=== PATIENT | male | born 1940 | race Caucasian/White ===

== ENCOUNTER → 2017-07-25 08:59 | Outpatient (CLI) | payer MEDICARE, SELFPAY ==
[2017-07-25 10:43] LABS: Absolute Lymphocyte Count 1.62 X10^3/ul (0.83-4.51); Absolute Neutrophil Count 5.5 X10^3/uL (2.0-7.7); Basophil# 0.03 X10^3/uL; Basophil% 0.4 % (0-1); Eosinophils% 1.3 % (0-5); Hematocrit 46.5 % (40-54); Hemoglobin 15.7 g/dl (13.0-16.5); Lymphocyte # 1.62 X10^3/ul (4.0); Mean Corp Hgb Conc 33.8 g/gl (32-36); Mean Corpuscular Hgb 36.3 pg (27.0-32.0); Mean Corpuscular Volume 107.4 fL (80-94); Mean Platelet Vol. 10.1 fl (6.2-12.0); Monocyte# 0.46 X10^3/uL; Neutrophil # 5.49 X10^3/uL (2.7-7.7); Platelet Count 192 K/mm3 (150-450); Red Blood Count 4.33 M/mm3 (4.6-6.2); White Blood Count 7.7 K/mm3 (4.4-11.0)
[2017-07-25 10:46] LABS: POSITIVE COUNT NO; POSITIVE DIFFERENTIAL NO; POSITIVE MORPHOLOGY NO
[2017-07-25 10:51] LABS: ALB/GLOB Ratio 1.1 RATIO (0.9-2.4); AST(SGOT) 26 U/L (15-37); Alanine Aminotransfer ALT/SGPT 33 U/L (16-61); Albumin, Serum 3.9 g/dL (3.2-5.0); Alkaline Phosphatase 63 U/L (45-117); BUN 20 mg/dL (7-18); BUN/Creat Ratio 20.9 RATIO (10-20); Chloride 100 mmol/L (98-107); Creatinine, Serum 0.96 mg/dL (0.70-1.30); EST Glomerular Filtration Rate 81 mL/min (>60); Est Glom Filt Rate - Afr Amer 98 mL/min (>60); Globulin 3.7 g/dL (2.2-4.2); Glucose 162 mg/dL (74-106); Potassium 4.2 mmol/L (3.5-5.1); Protein, Total 7.6 g/dL (6.4-8.2); Sodium Level 139 mmol/L (136-145)
[2017-07-25 10:52] LABS: Anion Gap 10 (5-15)
== END ==
PROVIDERS: Family Provider Internal Medicine; PCP Internal Medicine; Visit Provider Internal Medicine Rheumatology
DX: L40.59 Other psoriatic arthropathy (principal); Z79.899 Other long term (current) drug therapy; M17.0 Bilateral primary osteoarthritis of knee; L40.8 Other psoriasis; M10.00 Idiopathic gout, unspecified site; G47.33 Obstructive sleep apnea (adult) (pediatric); I10 Essential (primary) hypertension; E78.5 Hyperlipidemia, unspecified; F41.9 Anxiety disorder, unspecified; Z85.038 Personal history of other malignant neoplasm of large intestine
CPT/HCPCS: 36415; 80053; 85025

== ENCOUNTER → 2017-11-13 14:05 | Outpatient (CLI) | payer MEDICARE, SELFPAY ==
[2017-11-13 16:15] LABS: Absolute Lymphocyte Count 1.73 X10^3/ul (0.83-4.51); Absolute Neutrophil Count 5.1 X10^3/uL (2.0-7.7); Basophil# 0.03 X10^3/uL; Basophil% 0.4 % (0-1); Eosinophil# 0.14 X10^3/uL; Eosinophils% 1.8 % (0-5); Hematocrit 46.2 % (40-54); Hemoglobin 15.7 g/dl (13.0-16.5); Lymphocyte # 1.73 X10^3/ul (4.0); Lymphocyte % 21.9 % (19-41); Mean Corpuscular Hgb 35.7 pg (27.0-32.0); Mean Platelet Vol. 10.2 fl (6.2-12.0); Monocyte# 0.84 X10^3/uL; Monocyte% 10.6 % (0-10); Neutrophil # 5.11 X10^3/uL (2.7-7.7); Neutrophil % 64.8 % (47-70); Platelet Count 214 K/mm3 (150-450); RBC Distribution Width CV 12.9 % (11.6-14.6); RBC Distribution Width SD 49.3 fl (35.1-43.9); White Blood Count 7.9 K/mm3 (4.4-11.0)
[2017-11-13 16:18] LABS: POSITIVE COUNT NO; POSITIVE DIFFERENTIAL NO; POSITIVE MORPHOLOGY NO
[2017-11-13 16:38] LABS: ALB/GLOB Ratio 0.9 RATIO (0.9-2.4); AST(SGOT) 41 U/L (15-37); Alanine Aminotransfer ALT/SGPT 47 U/L (16-61); Albumin, Serum 3.6 g/dL (3.2-5.0); Alkaline Phosphatase 71 U/L (45-117); Anion Gap 12 (5-15); BUN 22 mg/dL (7-18); BUN/Creat Ratio 25.3 RATIO (10-20); Calcium,Total 9.1 mg/dL (8.5-10.1); Chloride 101 mmol/L (98-107); Creatinine, Serum 0.87 mg/dL (0.70-1.30); EST Glomerular Filtration Rate 90 mL/min (>60); Est Glom Filt Rate - Afr Amer 109 mL/min (>60); Globulin 3.9 g/dL (2.2-4.2); Glucose 173 mg/dL (74-106); Protein, Total 7.5 g/dL (6.4-8.2); Sodium Level 140 mmol/L (136-145)
== END ==
PROVIDERS: Family Provider Internal Medicine; PCP Internal Medicine; Visit Provider Internal Medicine Rheumatology
DX: L40.59 Other psoriatic arthropathy (principal); Z79.899 Other long term (current) drug therapy; M17.0 Bilateral primary osteoarthritis of knee; L40.8 Other psoriasis; M10.00 Idiopathic gout, unspecified site; G47.33 Obstructive sleep apnea (adult) (pediatric); I10 Essential (primary) hypertension; E78.5 Hyperlipidemia, unspecified; F41.9 Anxiety disorder, unspecified; Z85.038 Personal history of other malignant neoplasm of large intestine
CPT/HCPCS: 36415; 80053; 85025

== ENCOUNTER → 2018-01-10 10:22 | Outpatient (CLI) | payer MEDICARE, SELFPAY ==
[2018-01-10 12:26] LABS: Absolute Lymphocyte Count 1.49 X10^3/ul (0.83-4.51); Absolute Neutrophil Count 4.8 X10^3/uL (2.0-7.7); Basophil# 0.03 X10^3/uL; Basophil% 0.4 % (0-1); Eosinophil# 0.22 X10^3/uL; Hematocrit 45.7 % (40-54); Hemoglobin 15.3 g/dl (13.0-16.5); Lymphocyte # 1.49 X10^3/ul (4.0); Lymphocyte % 20.1 % (19-41); Mean Corp Hgb Conc 33.5 g/gl (32-36); Mean Corpuscular Hgb 35.5 pg (27.0-32.0); Mean Platelet Vol. 10.1 fl (6.2-12.0); Monocyte# 0.91 X10^3/uL; Monocyte% 12.2 % (0-10); Neutrophil # 4.76 X10^3/uL (2.7-7.7); Platelet Count 205 K/mm3 (150-450); RBC Distribution Width SD 50.2 fl (35.1-43.9); Red Blood Count 4.31 M/mm3 (4.6-6.2); White Blood Count 7.4 K/mm3 (4.4-11.0)
[2018-01-10 12:32] LABS: POSITIVE DIFFERENTIAL NO
[2018-01-10 12:33] LABS: POSITIVE COUNT NO; POSITIVE MORPHOLOGY NO
[2018-01-10 12:48] LABS: ALB/GLOB Ratio 0.9 RATIO (0.9-2.4); AST(SGOT) 54 U/L (15-37); Alanine Aminotransfer ALT/SGPT 45 U/L (16-61); Albumin, Serum 3.5 g/dL (3.2-5.0); Alkaline Phosphatase 60 U/L (45-117); Anion Gap 12 (5-15); BUN 16 mg/dL (7-18); Calcium,Total 8.9 mg/dL (8.5-10.1); Chloride 101 mmol/L (98-107); Creatinine, Serum 0.84 mg/dL (0.70-1.30); EST Glomerular Filtration Rate 93 mL/min (>60); Est Glom Filt Rate - Afr Amer 113 mL/min (>60); Glucose 151 mg/dL (74-106); Protein, Total 7.5 g/dL (6.4-8.2); Sodium Level 139 mmol/L (136-145)
[2018-01-12 11:28] LABS: Arsenic 7245 4 ug/L (2-23)
== END ==
PROVIDERS: Family Provider Internal Medicine; PCP Internal Medicine; Visit Provider Psychiatry & Neurology Neurology
DX: L40.59 Other psoriatic arthropathy (principal); Z79.899 Other long term (current) drug therapy; M17.0 Bilateral primary osteoarthritis of knee; L40.8 Other psoriasis; M10.00 Idiopathic gout, unspecified site; G47.33 Obstructive sleep apnea (adult) (pediatric); I10 Essential (primary) hypertension; E78.5 Hyperlipidemia, unspecified; F41.9 Anxiety disorder, unspecified; Z85.038 Personal history of other malignant neoplasm of large intestine; G62.9 Polyneuropathy, unspecified
CPT/HCPCS: 36415; 80053; 82175; 83655; 83825; 85025

== ENCOUNTER → 2018-01-17 08:49 | Outpatient (CLI) | payer MEDICARE, SELFPAY ==
--- NOTE | 2018-01-17 08:52 | US_ITS ---
STUDY: ABDOMINAL ULTRASOUND - RIGHT UPPER QUADRANT REASON FOR VISIT: Male, 77 years old. Elevated liver enzymes. TECHNIQUE: Ultrasound evaluation of the right upper quadrant was performed with real-time and static wiggins-scale imaging. TECHNICAL QUALITY: Adequate. COMPARISON: None. FINDINGS: Liver: The liver is enlarged and measures 23.3 cm. There is increased echogenicity consistent with fatty infiltration. The bile ducts are within normal limits. There is hepatic color flow. The direction of portal flow is hepatopetal. There is no demonstrated mass lesion. Gallbladder: Normal distended gallbladder. The gallbladder wall measures 2.6 mm. There is a negative sonographic Freitas's sign. There is no pericholecystic fluid. There are no gallstones. Common Bile Duct (C.B.D.): The common bile duct measures 5.3 mm. Pancreas: There is nonvisualization of the pancreas due to overlying bowel gas and patient's body habitus.. Right Kidney: Normal size of the right kidney. The right kidney measures 12.0 cm x 5.3 cm x 6.6 cm. Normal renal cortex. The right cortex measures 1.8 cm. There is no demonstrated renal mass or cyst. There is no right hydronephrosis. US/Liver IMPRESSION: Hepatomegaly. Fatty infiltration of the liver. Electronically Signed: Ruddy Clement MD at 15:56 EDT Tel [phone], Service support ,
== END ==
PROVIDERS: Family Provider Internal Medicine; PCP Internal Medicine; Visit Provider Internal Medicine Rheumatology
DX: L40.59 Other psoriatic arthropathy (principal); Z79.899 Other long term (current) drug therapy; M17.0 Bilateral primary osteoarthritis of knee; M10.00 Idiopathic gout, unspecified site; G47.33 Obstructive sleep apnea (adult) (pediatric); I10 Essential (primary) hypertension; E78.5 Hyperlipidemia, unspecified; F41.9 Anxiety disorder, unspecified; Z85.038 Personal history of other malignant neoplasm of large intestine
CPT/HCPCS: 76705

== ENCOUNTER → 2018-03-20 11:35 | Outpatient (CLI) | payer MEDICARE, SELFPAY ==
[2018-03-20 14:00] LABS: Absolute Lymphocyte Count 1.61 X10^3/ul (0.83-4.51); Absolute Neutrophil Count 6.1 X10^3/uL (2.0-7.7); Basophil# 0.03 X10^3/uL; Basophil% 0.3 % (0-1); Eosinophil# 0.15 X10^3/uL; Eosinophils% 1.7 % (0-5); Hematocrit 44.5 % (40-54); Hemoglobin 15.7 g/dl (13.0-16.5); Lymphocyte # 1.61 X10^3/ul (4.0); Lymphocyte % 17.7 % (19-41); Mean Corp Hgb Conc 35.3 g/gl (32-36); Mean Corpuscular Hgb 36.8 pg (27.0-32.0); Mean Corpuscular Volume 104.2 fL (80-94); Mean Platelet Vol. 10.4 fl (6.2-12.0); Monocyte# 1.16 X10^3/uL; Monocyte% 12.8 % (0-10); Neutrophil # 6.09 X10^3/uL (2.7-7.7); Neutrophil % 67.1 % (47-70); Platelet Count 212 K/mm3 (150-450); RBC Distribution Width CV 13.3 % (11.6-14.6); RBC Distribution Width SD 51.4 fl (35.1-43.9); Red Blood Count 4.27 M/mm3 (4.6-6.2); White Blood Count 9.1 K/mm3 (4.4-11.0)
[2018-03-20 14:08] LABS: POSITIVE COUNT NO; POSITIVE DIFFERENTIAL NO; POSITIVE MORPHOLOGY NO
[2018-03-20 14:31] LABS: ALB/GLOB Ratio 0.9 RATIO (0.9-2.4); AST(SGOT) 37 U/L (15-37); Alanine Aminotransfer ALT/SGPT 39 U/L (16-61); Albumin, Serum 3.7 g/dL (3.2-5.0); Alkaline Phosphatase 69 U/L (45-117); Anion Gap 11 (5-15); BUN 20 mg/dL (7-18); BUN/Creat Ratio 24.6 RATIO (10-20); Calcium,Total 9.4 mg/dL (8.5-10.1); Chloride 100 mmol/L (98-107); Creatinine, Serum 0.81 mg/dL (0.70-1.30); EST Glomerular Filtration Rate 97 mL/min (>60); Est Glom Filt Rate - Afr Amer 118 mL/min (>60); Globulin 4.3 g/dL (2.2-4.2); Glucose 91 mg/dL (74-106); Potassium 4.1 mmol/L (3.5-5.1); Sodium Level 140 mmol/L (136-145)
== END ==
PROVIDERS: Family Provider Internal Medicine; PCP Internal Medicine; Referring Provider Internal Medicine Rheumatology; Visit Provider Internal Medicine Rheumatology
DX: L40.59 Other psoriatic arthropathy (principal); Z79.899 Other long term (current) drug therapy; M17.0 Bilateral primary osteoarthritis of knee; L40.8 Other psoriasis; M10.00 Idiopathic gout, unspecified site; G47.33 Obstructive sleep apnea (adult) (pediatric); I10 Essential (primary) hypertension; E78.5 Hyperlipidemia, unspecified; F41.9 Anxiety disorder, unspecified; Z85.038 Personal history of other malignant neoplasm of large intestine
CPT/HCPCS: 36415; 80053; 85025

== ENCOUNTER 2018-06-06 14:52 | Emergency (ER) | payer MEDICARE, SELFPAY ==
[2018-06-06 14:53] VITALS: BP 156/72; PULSE 83; RESP 16; TEMP 36.4; O2SAT 95; BMI 52.1
--- NOTE | 2018-06-06 15:10 | ED.VISSUMM ---
- ER Visit Summary Date of Service: 06/06/18 Chief Complaint: Constipation History of Present Illness: The patient is a 78 M who presents with constipation. Patient states he normally has 1-2 bowel movements per day. Patient states that for a couple days since he had a bowel movement. Patient states he feels pressure in his rectum. Patient denies any melena or hematochezia. Patient denies any nausea or vomiting. Patient denies any abdominal pain. Patient states he almost passed out at home. Patient states he was sitting in his chair when this happened. Patient denies any chest pain or shortness of breath. Patient denies any visual changes or sore throat. Patient denies any recent fevers or chills. Physical Examination: Vital signs are stable. Patient is afebrile. Patient is in no acute distress. Oral mucosa is pink and moist. Neck is supple. Trachea is midline. There is no JVD noted. Heart was regular rate and rhythm. Lungs are clear and equal bilateral. Abdomen is soft. Bowel sounds are normal. There is no tenderness. There is no guarding noted. Still exam showed good sphincter tone. There is brown stool that is firm. There are no masses palpated. Skin is warm dry. Cranial nerves II through XII are intact. There are no focal motor or sensory deficits noted. The remaining physical exam is within normal limits. Test Results: CBC and metabolic profile were essentially within normal limits. CT scan of the abdomen and pelvis shows some mild sigmoid colitis. Stool was guaiac positive. This is likely due to the colitis. Emergency Department Course and Treatment: Patient had a large bowel movement here and felt better after that. Patient was given a prescription for Augmentin. Patient was instructed to follow-up with his primary care physician in 5-7 days. Patient understood and was agreeable with the plan. All questions were answered. Disposition: Discharge home Impression: 1. Sigmoid colitis 2. Constipation This note was generated with [employer] dictation software. It may contain incorrect words, spelling, and punctuation that were not noted in review of the chart prior to signing ED Disposition - Plan for ED Patient: Disposition: Home or Assisted Living Chief Complaint: Constipation Diagnosis: Colitis Instructions: ED Constipation Prescriptions: Amox/Clavulanate Tablet [Augmentin Tablet] 875 mg PO Q12H #20 tablet Referrals: Macie Fenton MD [Primary Care Provider] -
--- NOTE | 2018-06-06 15:11 | CT_ITS ---
STUDY: CT ABDOMEN AND PELVIS WITHOUT CONTRAST REASON FOR EXAM: Male, 78 years old. Constipation. History of colon cancer with resection. RADIATION DOSAGE (If Supplied By Facility): CTDIvol = ( 24.18 ) mGy, DLP = ( 1165.76 ) mGycm TECHNIQUE: Transaxial images were obtained from the dome of the diaphragm to the symphysis pubis without oral contrast, and without intravenous contrast. Sagittal and coronal images were reconstructed. Individualized dose optimization techniques were used for this CT. COMPARISON: CT abdomen and pelvis 06/30/2016. FINDINGS: Body wall soft tissues: Gynecomastia, right greater than left. Stable appearance compared to prior imaging. Fat filled inguinal hernias, also stable. Osseous structures: Multilevel spondylosis with evidence of foraminal narrowing at L5-S1 in particular. Osteopenia. No acute osseous process. Inferior chest: Lung bases clear. Borderline cardiomegaly. No pericardial effusion. Prominent coronary calcifications. Mitral annulus and aortic valve annulus calcifications. Sliding hiatal hernia containing omental fat, without herniation of the gastroesophageal junction or gastric fundus. Normal distal esophagus. Stable compared to prior imaging. Hepatobiliary: Hepatomegaly, hepatic steatosis. Craniocaudal right liver 21 cm. No suspicious focal lesion. Normal gallbladder and biliary tree. Pancreas: There is motion artifact across the pancreatic tail slightly securing detail. There is moderate pancreatic atrophy without suspicious focal lesion or ductal ectasia. No convincing evidence of acute pancreatitis. Spleen: Normal. Adrenal glands: Normal. Urogenital: Unremarkable kidneys, collecting systems, ureters. Prostatomegaly. There is mild thickening of the urinary bladder wall. The urinary bladder contains only a small amount of urine. There is low density fatty infiltration the wall consistent with sequela from prior cystitis. There is no evidence of acute urinary bladder inflammation. Symmetric and unremarkable seminal vesicles. Pelvic floor and sidewalls and retroperitoneum: No mass or adenopathy. Vasculature: No acute process. Stomach: No acute process. Small bowel and mesentery: No acute process. Large bowel: Appendix is not visualized. There is no visible anastomotic segment of the large bowel, no radiodense sutures or izzy. It is possible that there is an ileocolic anastomosis in the right mid quadrant of the abdomen. Correlate surgical history. There is mild circumferential thickening of the wall of the mid to distal sigmoid colon, very slight induration in the adjacent fat, hyperemia in the mesentery. Not entirely convincing but potentially representing mild acute colitis. There is no significant stool of large bowel, no constipation. Free fluid or free air: None. CT/Abdomen/Pelvis without Cont IMPRESSION: Suspected mild acute colitis involving the sigmoid colon. No constipation. Electronically Signed: Giovanni Agudelo MD at 15:59 EST Tel , Service support ,
[2018-06-06 15:48] LABS: Absolute Lymphocyte Count 1.87 X10^3/ul (0.83-4.51); Basophil# 0.04 X10^3/uL; Basophil% 0.4 % (0-1); Eosinophil# 0.14 X10^3/uL; Eosinophils% 1.5 % (0-5); Hematocrit 43.6 % (40-54); Hemoglobin 15.4 g/dl (13.0-16.5); Lymphocyte # 1.87 X10^3/ul (4.0); Lymphocyte % 20.7 % (19-41); Mean Corp Hgb Conc 35.3 g/gl (32-36); Mean Corpuscular Hgb 37.6 pg (27.0-32.0); Mean Corpuscular Volume 106.3 fL (80-94); Mean Platelet Vol. 10.2 fl (6.2-12.0); Monocyte# 0.95 X10^3/uL; Monocyte% 10.5 % (0-10); Neutrophil # 6.02 X10^3/uL (2.7-7.7); Neutrophil % 66.6 % (47-70); Platelet Count 207 K/mm3 (150-450); RBC Distribution Width CV 13.1 % (11.6-14.6); RBC Distribution Width SD 51.4 fl (35.1-43.9); White Blood Count 9.1 K/mm3 (4.4-11.0)
[2018-06-06 15:52] LABS: POSITIVE COUNT NO; POSITIVE DIFFERENTIAL NO; POSITIVE MORPHOLOGY NO
[2018-06-06 16:06] LABS: ALB/GLOB Ratio 0.9 RATIO (0.9-2.4); AST(SGOT) 28 U/L (15-37); Alanine Aminotransfer ALT/SGPT 33 U/L (16-61); Albumin, Serum 3.9 g/dL (3.2-5.0); Alkaline Phosphatase 78 U/L (45-117); Anion Gap 13 (5-15); BUN 22 mg/dL (7-18); BUN/Creat Ratio 21.6 RATIO (10-20); Calcium,Total 9.4 mg/dL (8.5-10.1); Chloride 99 mmol/L (98-107); Creatinine, Serum 1.02 mg/dL (0.70-1.30); EST Glomerular Filtration Rate 75 mL/min (>60); Est Glom Filt Rate - Afr Amer 91 mL/min (>60); Estimated Creatinine Clearance 43.44 ml/min; Globulin 4.2 g/dL (2.2-4.2); Glucose 176 mg/dL (74-106); Protein, Total 8.1 g/dL (6.4-8.2); Sodium Level 139 mmol/L (136-145)
[2018-06-06 16:32] VITALS: BP 140/58; PULSE 61; RESP 20; O2SAT 95
== END 2018-06-06 16:33 | disposition home or self-care (01) ==
PROVIDERS: Emergency Provider Emergency Medicine; Family Provider Internal Medicine; PCP Internal Medicine
DX: K52.9 Noninfective gastroenteritis and colitis, unspecified (principal); K59.00 Constipation, unspecified; Z85.038 Personal history of other malignant neoplasm of large intestine
CPT/HCPCS: 74176; 80053; 82274; 85025; 99285

== ENCOUNTER 2018-07-16 11:20 | Emergency (ER) | payer MEDICARE, SELFPAY ==
[2018-07-16 11:22] VITALS: BP 132/59; PULSE 67; RESP 16; TEMP 36.5; O2SAT 95; BMI 40.3
--- NOTE | 2018-07-16 11:36 | RAD_ITS ---
STUDY: X-RAY - ABDOMEN/PELVIS REASON FOR EXAM: Male, 78 years old. Constipation TECHNIQUE: 3 AP supine views of the abdomen and pelvis. COMPARISON: 06/06/2018 FINDINGS: Normal visualized lung bases. There is a moderate amount of colonic fecal material. There is no demonstrated free abdominal air. The visualized liver, spleen and kidneys are grossly normal in size and morphology. There are calcified phleboliths in the pelvis. There are diffuse degenerative changes of the visualized lumbar spine. RAD/Abdomen Single View IMPRESSION: Moderate fecal retention throughout the colon Electronically Signed: Gregory Fletcher DO at 12:45 EDT Tel , Service support ,
--- NOTE | 2018-07-16 11:41 | ED.DCSUM_ITS ---
- ER Visit Summary Date of Service: 07/16/18 Chief Complaint: Constipation History of Present Illness: The patient is a 78 M who presents the emergency department far 3 days of constipation. called the embolus to have him transported to the emergency room for this. She also states that while she is h ere she would like to have a rash, for which she sees dermatology, evaluated. She is also wondering if she should stop having him wear sweat pants with elastic legs because she is concerned is causing leg swelling. She states she has been putting a cream on it and is getting better. Patient takes MiraLAX every day for his bowels but did not take it yesterday. She gave him a Dulcolax. Physical Examination: Afebrile vital signs are stable Gen: Well-nourished well-developed obese Head: Normocephalic atraumatic Eyes: Perrl EOMI ENT: clear no rhinorrhea moist mucous membranes hard of hearing Neck: Supple no lymphadenopathy no JVD nontender CVS: Regular rate rhythm no murmurs normal S1-S2 Respiratory: No distress clear to auscultation bilaterally chest nontender Abdomen: Soft nontender nondistended normal bowel sounds no masses Back: Nontender Extremity: Nontender no edema Skin: Normal color no rash Neuro: alert orientated ?3 CN II-XII intact normal strength sensation reflexes gait cerebellar Psych: Normal affect normal mood Test Results: Abdominal x-rays showed increased stool throughout the colon. Emergency Department Course and Treatment: Patient was given a soapsuds enema and had very large bowel movement. Patient will be discharged home to resume his normal bowel regimen of MiraLAX and stool softener Impression: 1. Constipation This note was generated with [employer] dictation software. It may contain incorrect words, spelling, and punctuation that were not noted in review of the chart prior to signing ED Disposition - Plan for ED Patient: Disposition: Home or Assisted Living Instructions: ED Constipation Referrals: Macie Fenton MD [Primary Care Provider] - 1 Week
[2018-07-16 13:39] VITALS: BP 158/77; PULSE 59; RESP 14; O2SAT 98
[2018-07-16 14:14] VITALS: BP 145/69
[2018-07-16 15:06] VITALS: BP 153/80; PULSE 54; RESP 16; O2SAT 96
== END 2018-07-16 15:06 | disposition home or self-care (01) ==
PROVIDERS: Emergency Provider Emergency Medicine; Family Provider Internal Medicine; PCP Internal Medicine
DX: K59.00 Constipation, unspecified (principal); E66.9 Obesity, unspecified; I10 Essential (primary) hypertension; E78.00 Pure hypercholesterolemia, unspecified; G47.33 Obstructive sleep apnea (adult) (pediatric); G62.9 Polyneuropathy, unspecified; Z79.2 Long term (current) use of antibiotics; Z79.82 Long term (current) use of aspirin; Z79.899 Other long term (current) drug therapy
CPT/HCPCS: 74018; 99285; J7030; A4216

== ENCOUNTER 2018-07-24 15:00 | Emergency (ER) | payer MEDICARE, SELFPAY ==
[2018-07-24 15:02] VITALS: BP 181/81; PULSE 62; RESP 16; TEMP 36.6; O2SAT 96; BMI 43.2
--- NOTE | 2018-07-24 15:30 | CT_ITS ---
STUDY: CT ABDOMEN AND PELVIS WITHOUT CONTRAST REASON FOR EXAM: Male, 78 years old. Constipation, weakness, back pain after fall. RADIATION DOSAGE (If Supplied By Facility): CTDIvol = ( 34.24 ) mGy, DLP = ( 2286.81 ) mGycm TECHNIQUE: Transaxial images were obtained from the dome of the diaphragm to the symphysis pubis without oral contrast, and without intravenous contrast. Sagittal and coronal images were reconstructed. Individualized dose optimization techniques were used for this CT. COMPARISON: CT abdomen and pelvis 06/06/2018, 06/30/2016. FINDINGS: Body wall soft tissues: Small fat filled bilateral inguinal hernias, typically of no clinical consequence. Osseous structures: Mild multilevel lower thoracic and upper lumbar spondylosis. Moderate disc degeneration L5-S1 with mild foraminal narrowing. Mild bilateral hip joint degeneration. Inferior chest: Clear lung bases, normal distal esophagus. Right coronary calcifications. No significant cardiomegaly. Hepatobiliary: Hepatic steatosis with hepatomegaly craniocaudal right liver 21.7 cm. Pancreas: Mild atrophy. Spleen: Normal. Adrenal glands: Normal. Urogenital: Normal kidneys, collecting systems, ureters, urinary bladder. Mild prostatomegaly. Symmetric and unremarkable seminal vesicles. Pelvic floor and sidewalls and retroperitoneum: No mass or adenopathy. Vasculature: Mild atherosclerosis. Stomach: No acute process. Small bowel and mesentery: No acute process. Large bowel: No visible appendix. Partially fluid-filled large bowel suggesting the presence of diarrhea. Free fluid or free air: None. CT/Abdomen/Pelvis without Cont IMPRESSION: No definitive acute abdominopelvic process is evident. There is no evidence of constipation. Minimal formed stool in the rectum and sigmoid. Liquid stool in the remainder of the large bowel. Correlate for diarrhea. There is no specific evidence of acute enterocolitis. Hepatic steatosis with hepatomegaly. Electronically Signed: Giovanni Agudelo MD at 17:45 EDT Tel , Service support ,
--- NOTE | 2018-07-24 15:31 | ED.VISSUMM ---
- ER Visit Summary Date of Service: 07/24/18 Chief Complaint: Constipation, weakness History of Present Illness: The patient is a 78 M patient presents with due to recurrent problems with constipation. Patient reports having 3 small bowel movements this morning but still feels bloated. He was seen here in the ER both in May and in July for the same. Patient has had increased weakness. reports concern about her ability to care for the patient at home. He did have a mechanical fall a few days ago with some forehead abrasions and some worsened chronic back pain since that time. Physical Examination: Blood pressure in triage was 181/81, but 157/72 the time of my exam. Other vitals unremarkable. Head neck examination reveals abrasions to the right forehead. Heart is regular rate and rhythm. Lung sounds are clear. Abdomen is soft with no focal tenderness. Active bowel sounds are noted throughout. Abdomen is distended. Test Results: CBC is unremarkable. Chemistry studies unremarkable. CT abdomen pelvis shows no acute process. There is minimal formed stool in the rectum and the sigmoid. Emergency Department Course and Treatment: Social work was consulted. After spending significant amount of time with her, drug abuse social worker and family have agreed on plan for home health. Patient at this time is refusing transitional care. Test results were discussed at length with patient and at bedside. Treatment Plan: [] Disposition: Discharge Impression: Generalized weakness This note was generated with [employer] dictation software. It may contain incorrect words, spelling, and punctuation that were not noted in review of the chart prior to signing ED Disposition - Plan for ED Patient: Disposition: Home or Assisted Living Referrals: Macie Fenton MD [Primary Care Provider] -
[2018-07-24 16:34] LABS: Absolute Lymphocyte Count 0.97 X10^3/ul (0.83-4.51); Absolute Neutrophil Count 8.5 X10^3/uL (2.0-7.7); Basophil# 0.02 X10^3/uL; Basophil% 0.2 % (0-1); Eosinophil# 0.08 X10^3/uL; Eosinophils% 0.8 % (0-5); Hematocrit 46.6 % (40-54); Hemoglobin 14.9 g/dl (13.0-16.5); Lymphocyte # 0.97 X10^3/ul (4.0); Lymphocyte % 9.4 % (19-41); Mean Corpuscular Hgb 34.4 pg (27.0-32.0); Mean Corpuscular Volume 107.6 fL (80-94); Mean Platelet Vol. 10.5 fl (6.2-12.0); Monocyte# 0.69 X10^3/uL; Monocyte% 6.7 % (0-10); Neutrophil # 8.52 X10^3/uL (2.7-7.7); Neutrophil % 82.6 % (47-70); POSITIVE COUNT NO; POSITIVE DIFFERENTIAL NO; POSITIVE MORPHOLOGY NO; Platelet Count 202 K/mm3 (150-450); RBC Distribution Width CV 13.4 % (11.6-14.6); RBC Distribution Width SD 51.7 fl (35.1-43.9); Red Blood Count 4.33 M/mm3 (4.6-6.2); White Blood Count 10.3 K/mm3 (4.4-11.0)
[2018-07-24 16:56] LABS: Anion Gap 1 (5-15); BUN 20 mg/dL (7-18); Calcium,Total 9.4 mg/dL (8.5-10.1); Chloride 101 mmol/L (98-107); Creatinine, Serum 0.83 mg/dL (0.70-1.30); EST Glomerular Filtration Rate 94 mL/min (>60); Est Glom Filt Rate - Afr Amer 114 mL/min (>60); Estimated Creatinine Clearance 65.12 ml/min; Glucose 110 mg/dL (74-106); Potassium 4.8 mmol/L (3.5-5.1); Sodium Level 134 mmol/L (136-145)
--- NOTE | 2018-07-24 17:10 | CM.ED ---
Social Work Note Referral from Dr. Ashley for resources. Pt has had 3 visits to ED since May of 2018 and indicates she needs more help. Introduced self and role at [facility]. Pt allows to respond to most questions. reports that they live in a one-story home with 3 [address] and pt uses a walker to ambulate. Reports weakness for the pt and that he had a fall yesterday. Claims that the pt bathes himself, dresses himself and his able to ambulate the length of the house. Inquire about [facility] services and states that she does not think this will be enough as she cannot help the pt out of the chair or up from the shower, etc. Pt is not agreeable to placement. Discuss the option of short term placement for rehabilitation and strengthening prior to returning home. Pt becomes upset and states that he is going home. talks about getting additional DME in the home to help such as a lift chair. Discuss with pt and for approximately 40 minutes. Neither are able to agree. Explain to pt's that at this time the pt is alert and oriented and able to make his own decisions. Exit room and inform them that they need to discuss and agree on their expectations and this development writer will check back in. Updated physician. SW to continue to follow and assist with discharge planning. SUSY Bernabe, COLEMAN
--- NOTE | 2018-07-24 17:32 | CM.ED ---
Social Work Note Call from SHASHANK Ireland, stating that pt's came out to nurses station and was ready to talk to this bond underwriter. Reenter room and pt and spouse are agreeable to HHC services. Updated physician who is in agreement. HHC referral made to [facility] per pt's preference and anticipate f/u with pt and spouse tomorrow, 07/25. No further needs identified at this time. PLAN: Return home with support of spouse and HHC services. Poppy Olson, NOZZLE AND SLEEVE WORKER, [employer]
--- NOTE | 2018-07-24 18:10 | ED.DEP ---
ED Disposition - Plan for ED Patient: Disposition: Home or Assisted Living Instructions: ED Weakness [facility] Referrals: Macie Fenton MD [Primary Care Provider] - 1 Week Additional Instructions: Social work will help arrange home health as discussed.
--- NOTE | 2018-07-27 11:52 | CM.ED ---
SOCIAL WORK NOTE RECEIVED PHONE CALL FROM PT'S REPORTING HAS NOT HEARD FROM [facility]RE[facility] AND GARLAND MAKER FROM [facility]. REPORTS PT WAS IN ED ON MONDAY AND REFERRAL WAS MADE TO [facility] PER ARBORIST CLIMBER, MAURICIO. CALL TO ALLI WITH [facility]. UPDATED ON REFERRAL. ALLI TO FOLLOW UP WITH PT AND . GAGAN JAIN, HOME CARE MANAGER RN, DIRECTOR [employer]
== END 2018-07-24 18:29 | disposition home or self-care (01) ==
PROVIDERS: Emergency Provider Emergency Medicine; Family Provider Internal Medicine; PCP Internal Medicine
DX: R53.1 Weakness (principal); G89.29 Other chronic pain; M54.9 Dorsalgia, unspecified; E66.9 Obesity, unspecified; G47.33 Obstructive sleep apnea (adult) (pediatric); I10 Essential (primary) hypertension; E78.00 Pure hypercholesterolemia, unspecified; F03.90 Unspecified dementia, unspecified severity, without behavioral disturbance, psychotic disturbance, mood disturbance, and anxiety; Z85.038 Personal history of other malignant neoplasm of large intestine; N40.0 Benign prostatic hyperplasia without lower urinary tract symptoms
CPT/HCPCS: 74176; 80048; 85025; 99285; A4216

== ENCOUNTER → 2018-09-12 | Outpatient (CLI) | payer MEDICARE, SELFPAY ==
[2018-09-12 12:37] LABS: Absolute Lymphocyte Count 1.44 X10^3/ul (0.83-4.51); Absolute Neutrophil Count 6.4 X10^3/uL (2.0-7.7); Basophil# 0.03 X10^3/uL; Basophil% 0.3 % (0-1); Eosinophil# 0.11 X10^3/uL; Eosinophils% 1.3 % (0-5); Hematocrit 45.1 % (40-54); Hemoglobin 14.8 g/dl (13.0-16.5); Lymphocyte # 1.44 X10^3/ul (4.0); Lymphocyte % 16.7 % (19-41); Mean Corp Hgb Conc 32.8 g/gl (32-36); Mean Corpuscular Hgb 35.7 pg (27.0-32.0); Mean Corpuscular Volume 108.7 fL (80-94); Mean Platelet Vol. 10.6 fl (6.2-12.0); Monocyte# 0.67 X10^3/uL; Monocyte% 7.8 % (0-10); Neutrophil # 6.35 X10^3/uL (2.7-7.7); Neutrophil % 73.7 % (47-70); Platelet Count 218 K/mm3 (150-450); RBC Distribution Width CV 13.7 % (11.6-14.6); RBC Distribution Width SD 54.5 fl (35.1-43.9); Red Blood Count 4.15 M/mm3 (4.6-6.2); White Blood Count 8.6 K/mm3 (4.4-11.0)
[2018-09-12 12:47] LABS: POSITIVE COUNT NO; POSITIVE DIFFERENTIAL NO; POSITIVE MORPHOLOGY NO
[2018-09-12 13:03] LABS: AST(SGOT) 29 U/L (15-37); Alanine Aminotransfer ALT/SGPT 36 U/L (16-61); Albumin, Serum 3.7 g/dL (3.2-5.0); Alkaline Phosphatase 74 U/L (45-117); Anion Gap 3 (5-15); BUN 22 mg/dL (7-18); BUN/Creat Ratio 26.5 RATIO (10-20); Calcium,Total 9.1 mg/dL (8.5-10.1); Chloride 102 mmol/L (98-107); Creatinine, Serum 0.83 mg/dL (0.70-1.30); EST Glomerular Filtration Rate 95 mL/min (>60); Est Glom Filt Rate - Afr Amer 115 mL/min (>60); Globulin 3.6 g/dL (2.2-4.2); Glucose 129 mg/dL (74-106); Potassium 4.1 mmol/L (3.5-5.1); Protein, Total 7.3 g/dL (6.4-8.2); Sodium Level 136 mmol/L (136-145)
[2018-09-12 15:29] LABS: Hemoglobin A1c 6.1 % (4.2-6.3)
== END | disposition home or self-care (01) ==
LOC: MTLAB 09:36
PROVIDERS: Family Provider Internal Medicine; PCP Internal Medicine; Referring Provider Internal Medicine Rheumatology; Visit Provider Internal Medicine Rheumatology
DX: L40.59 Other psoriatic arthropathy (principal); Z79.899 Other long term (current) drug therapy; M17.0 Bilateral primary osteoarthritis of knee; L40.8 Other psoriasis; M10.00 Idiopathic gout, unspecified site; R73.01 Impaired fasting glucose
CPT/HCPCS: 36415; 80053; 83036; 85025

== ENCOUNTER → 2019-03-11 12:49 | Outpatient (CLI) | payer MEDICARE, SELFPAY ==
[2019-03-11 14:15] LABS: Absolute Lymphocyte Count 2.24 X10^3/uL (0.83-4.51); Basophil# 0.05 X10^3/uL; Basophil% 0.6 % (0-1); Eosinophil# 0.19 X10^3/uL; Eosinophils% 2.3 % (0-5); Hematocrit 45.9 % (40-54); Hemoglobin 15.4 g/dL (13.0-16.5); Lymphocyte # 2.24 X10^3/ul (4.0); Lymphocyte % 26.8 % (19-41); Mean Corp Hgb Conc 33.6 g/dL (32-36); Mean Corpuscular Hgb 36.1 pg (27.0-32.0); Mean Corpuscular Volume 107.5 fL (80-94); Monocyte# 0.78 X10^3/uL; Monocyte% 9.3 % (0-10); NRBC Flagged by Analyzer 0 % (0-5); Neutrophil # 5.04 X10^3/uL (2.7-7.7); Neutrophil % 60.4 % (47-70); Platelet Count 195 K/mm3 (150-450); RBC Distribution Width CV 12.8 % (11.6-14.6); RBC Distribution Width SD 51.1 fl (35.1-43.9); Red Blood Count 4.27 M/mm3 (4.6-6.2); White Blood Count 8.4 K/mm3 (4.4-11.0)
[2019-03-11 15:13] LABS: AST(SGOT) 25 U/L (15-37); Alanine Aminotransfer ALT/SGPT 36 U/L (16-61); Alkaline Phosphatase 67 U/L (45-117); Anion Gap 11 (5-15); BUN 41 mg/dL (7-18); BUN/Creat Ratio 32.8 RATIO (10-20); Calcium,Total 9.4 mg/dL (8.5-10.1); Chloride 98 mmol/L (98-107); Creatinine, Serum 1.25 mg/dL (0.70-1.30); EST Glomerular Filtration Rate 59 mL/min (>60); Est Glom Filt Rate - Afr Amer 72 mL/min (>60); Glucose 89 mg/dL (74-106); Potassium 4.2 mmol/L (3.5-5.1); Sodium Level 138 mmol/L (136-145)
== END ==
LOC: LAB.FUTURE 12:50 → MTLAB 12:59
PROVIDERS: Family Provider Internal Medicine; PCP Internal Medicine; Referring Provider Internal Medicine Rheumatology; Visit Provider Internal Medicine Rheumatology
DX: L40.59 Other psoriatic arthropathy (principal); Z79.899 Other long term (current) drug therapy; M17.0 Bilateral primary osteoarthritis of knee; L40.8 Other psoriasis; M10.00 Idiopathic gout, unspecified site; K76.0 Fatty (change of) liver, not elsewhere classified; G47.33 Obstructive sleep apnea (adult) (pediatric); I10 Essential (primary) hypertension; E78.5 Hyperlipidemia, unspecified; F41.9 Anxiety disorder, unspecified; Z85.038 Personal history of other malignant neoplasm of large intestine
CPT/HCPCS: 36415; 80053; 85025

== ENCOUNTER → 2019-05-02 21:19 | Outpatient (CLI) | payer MEDICARE, SELFPAY | PROVIDERS: Family Provider Internal Medicine; PCP Internal Medicine; Referring Provider Psychiatry & Neurology Neurology; Visit Provider Psychiatry & Neurology Neurology | DX: G47.33 Obstructive sleep apnea (adult) (pediatric) (principal) | CPT/HCPCS: 95811 ==

== ENCOUNTER → 2019-09-02 10:25 | Outpatient (CLI) | payer MEDICARE, SELFPAY ==
[2019-09-02 12:10] LABS: Absolute Lymphocyte Count 1.83 X10^3/uL (0.83-4.51); Absolute Neutrophil Count 5.4 X10^3/uL (2.0-7.7); Basophil# 0.06 X10^3/uL; Basophil% 0.7 % (0-1); Eosinophil# 0.23 X10^3/uL; Eosinophils% 2.7 % (0-5); Hemoglobin 14.6 g/dL (13.0-16.5); Lymphocyte # 1.83 X10^3/ul (4.0); Lymphocyte % 21.9 % (19-41); Mean Corp Hgb Conc 32.4 g/dL (32-36); Mean Corpuscular Hgb 34.7 pg (27.0-32.0); Mean Corpuscular Volume 106.9 fL (80-94); Mean Platelet Vol. 10.3 fl (6.2-12.0); Monocyte# 0.86 X10^3/uL; Monocyte% 10.3 % (0-10); NRBC Flagged by Analyzer 0 % (0-5); Neutrophil # 5.35 X10^3/uL (2.7-7.7); Neutrophil % 63.9 % (47-70); Platelet Count 193 K/mm3 (150-450); RBC Distribution Width CV 13.1 % (11.6-14.6); RBC Distribution Width SD 51.8 fl (35.1-43.9); Red Blood Count 4.21 M/mm3 (4.6-6.2); White Blood Count 8.4 K/mm3 (4.4-11.0)
[2019-09-02 12:19] LABS: AST(SGOT) 25 U/L (15-37); Alanine Aminotransfer ALT/SGPT 34 U/L (16-61); Albumin, Serum 3.7 g/dL (3.2-5.0); Alkaline Phosphatase 68 U/L (45-117); Anion Gap 5 (5-15); BUN 25 mg/dL (7-18); BUN/Creat Ratio 24.5 RATIO (10-20); Calcium,Total 9.6 mg/dL (8.5-10.1); Chloride 104 mmol/L (98-107); Creatinine, Serum 1.02 mg/dL (0.70-1.30); EST Glomerular Filtration Rate 75 mL/min (>60); Est Glom Filt Rate - Afr Amer 90 mL/min (>60); Globulin 3.8 g/dL (2.2-4.2); Glucose 93 mg/dL (74-106); Potassium 4.4 mmol/L (3.5-5.1); Protein, Total 7.5 g/dL (6.4-8.2); Sodium Level 140 mmol/L (136-145)
== END ==
PROVIDERS: PCP Internal Medicine; Referring Provider Internal Medicine Rheumatology; Visit Provider Internal Medicine Rheumatology
DX: L40.59 Other psoriatic arthropathy (principal); Z79.899 Other long term (current) drug therapy; M17.0 Bilateral primary osteoarthritis of knee; L40.8 Other psoriasis; M10.00 Idiopathic gout, unspecified site; K76.0 Fatty (change of) liver, not elsewhere classified; G47.33 Obstructive sleep apnea (adult) (pediatric); I10 Essential (primary) hypertension; E78.5 Hyperlipidemia, unspecified; F41.9 Anxiety disorder, unspecified; Z85.038 Personal history of other malignant neoplasm of large intestine
CPT/HCPCS: 36415; 80053; 85025

== ENCOUNTER 2020-10-16 13:43 | Emergency (ER) | payer MEDICARE, SELFPAY ==
[2020-07-30 09:13] VITALS: BMI 44.8
[2020-10-16 13:44] VITALS: BP 216/81; PULSE 66; RESP 16; TEMP 36.7; O2SAT 99; BMI 42.7
--- NOTE | 2020-10-16 14:31 | CT_ITS ---
STUDY: CT BRAIN WITHOUT CONTRAST REASON FOR EXAM: Male, 80 years old. INJURY RADIATION DOSAGE (If Supplied By Facility): CTDIvol = ( 44.99 ) mGy, DLP = ( 846.73 ) mGycm TECHNIQUE: Transaxial CT imaging of the brain was performed without administration of intravenous contrast material. Individualized dose optimization techniques were used for this CT. COMPARISON: Comparison is made with prior study dated 06/30/2016. FINDINGS: Small scalp hematoma overlying the right frontal bone. Normal calvarium. There is moderate cerebral atrophy with widening of the extra-axial spaces and ventricular dilatation. There are areas of decreased attenuation within the white matter tracts of the supratentorial brain, consistent with microvascular disease changes. There are small punctate calcifications of the basal ganglia which are seen in the aging brain as a normal variant. Normal brainstem. There is mild cerebellar atrophy. There is no intracranial hemorrhage. There are no findings of an acute ischemic infarction. Atherosclerotic calcification of the vertebral arteries as well as the cavernous portions of the internal carotid arteries bilaterally. Mucosal thickening of the left maxillary sinus and partial opacification of the ethmoid sinuses. CT/Brain/Head without Contrast IMPRESSION: Chronic involutional changes of the brain. Scalp hematoma overlying the right frontal bone. Electronically Signed: Ruddy Clement MD at 15:27 EDT , Service support ,
--- NOTE | 2020-10-16 14:49 | EDS_ITS ---
HPI History of Present Illness Chief Complaint: Fall Informant: patient and spouse/S.O. Narrative Narrative: 80-year-old male states that he was coming down to the garage steps with his walker when he lost his balance and fell. He notes 2 skin tears to the right elbow area. He notes laceration to the forehead. He notes mild headache. No loss of consciousness. He is not currently on any blood thinners. He denies any neck or back pain. Denies any lower extremity injury chest or abdominal pain. Tetanus Immunization: <[address] [facility] Medical History (Updated 10/16/20 @ 14:[address] 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 Seasonal allergies Skin cancer SVT (supraventricular tachycardia) Unspecified sleep apnea Home Medications allopurinol 200 mg PO DAILYCM 03/07/13 [History Last Taken 07/24/18] buspirone 1 tablet PO BID 03/07/13 [History Last Taken 07/24/18] cholecalciferol (vitamin D3) 1,000 unit PO DAILY 03/07/13 [History Last Taken 07/24/18] finasteride 5 mg PO DAILY 03/07/13 [History Last Taken 07/24/18] hydrochlorothiazide 25 mg PO DAILY 03/07/13 [History Last Taken 07/24/18] polyethylene glycol 3350 1 packet PO DAILY 03/07/13 [History Last Taken 07/24/18] simvastatin 20 mg PO QHS 03/07/13 [History Last Taken 07/24/18] aspirin 81 mg PO DAILY@0800 10/19/13 [History Last Taken 07/24/18] celecoxib 200 mg PO DAILY 06/30/16 [History Last Taken 07/24/18] diphenhydramine-acetaminophen 1 - 2 each PO Q6H PRN 06/30/16 [History Last Taken 07/24/18] alpha lipoic acid 100 mg PO DAILY 06/06/18 [History Last Taken 07/24/18] tamsulosin 0.4 mg PO DAILY 06/06/18 [History Last Taken 07/24/18] Bifidobacterium infantis 4 mg capsule 4 mg PO DAILY 07/28/20 [History Last Taken Unknown] levomefolate Ca 3 mg-B6 35 mg-meB12 2 mg-algal oil 90.314 mg capsule 1 cap PO BID 07/28/20 [History Last Taken Unknown] lisinopril 30 mg tablet 30 mg PO DAILY 07/28/20 [History Last Taken Unknown] melatonin 5 mg capsule 5 mg PO QHS cap 07/28/20 [History Last Taken Unknown] menthol 4 % topical gel 1 applic TOPICAL TID PRN 07/28/20 [History Last Taken Unknown] donepezil 10 mg tablet 10 mg PO QHS #30 tablet 07/31/20 [Rx Last Taken Unknown] memantine 10 mg tablet 10 mg PO BID #60 tablet 07/31/20 [Rx Last Taken Unknown] Allergy/AdvReac Type Severity Reaction Status Date / Time ibuprofen Allergy Mild Rash Verified 10/16/20 13:48 Family History Mother Cancer Sister Colon cancer Brother Colon cancer Alzheimer disease Surgical History History of knee replacement procedure of right knee Social History Smoking Status: Former smoker Tobacco: How many years used: 20 Electronic Cigarette Use: not used how long ago did patient quit smokin years ago second hand exposure: No alcohol intake: former substance use type: does not use ROS ROS ED Constitutional Constitutional ED: Denies chills or weight loss Eyes Eyes: Denies change in vision or diplopia ENT ENT ED: Denies ear pain, rhinorrhea or sore throat Cardiovascular Cardiovascular: Denies chest pain, orthopnea, palpitations or racing heartbeat Respiratory/Chest Respiratory/Chest: Denies cough, dyspnea or orthopnea Gastrointestinal Gastrointestinal: Denies abdominal pain, diarrhea, nausea or vomiting Genitourinary Genitourinary ED: Denies dysuria, hematuria or urinary frequency Musculoskeletal Musculoskeletal: Denies arthralgias, back pain, myalgias or neck pain Integumentary Reports Abrasions and other Details: See history of present illness ; Denies abscess or rash Neurologic Neurologic: Reports headache(s); Denies weakness Psychiatric Psychiatric: Denies anxiety, depression, suicidal ideation or suicidal thoughts Endocrine Endocrinology: Denies polydipsia, polyphagia or polyuria Allergic/Immunologic Allergic/Immunologic ED: Denies mouth swelling, tongue swelling or urticaria EXAM Physical Exam Const Vital Signs: 10/16/20 13:44 Temperature 98.0 F Temperature Source Temporal Pulse Rate 66 Respiratory Rate 16 Blood Pressure 216/81 H Blood Pressure Mean 126 Pulse Ox 99 Oxygen Delivery Method Room Air Positive well nourished and well developed General Appearance ED: well developed HEENT Reports normocephalic, head/scalp atraumatic and moist mucous membranes HEENT Narrative: There is a 1.5 cm irregular right mid forehead laceration. There is right periorbital contusion and hematoma. trauma Eyes PERRL and EOMs intact bilaterally Neck no lymphadenopathy, supple and no JVD Resp normal respiratory effort and clear to auscultation bilaterally Cardio regular rate, regular rhythm and no murmurs GI normal to inspection, nondistended, normoactive bowel sounds and non-tender Palpation: soft Back/Spine no CVA tenderness and normal ROM Extremity Extremity Narrative: A 5 cm circular skin tear on the posterior lateral right elbow. There is a 2 cm anterior skin tear to the right elbow as well. General Extremety ED: Negative for edema General Extremity: Negative for edema Neuro oriented x3 and CN's II-XII intact bilaterally Sensorium / Orientation: alert Motor Exam: strength 5/5 throughout Psych mental status grossly normal Mood & Affect: Negative for depressed or tearful Skin no rashes or lesions noted and no wounds MDM MDM MDM Narrative Medical decision making narrative: The skin tear remaining skin was smoothed out to cover a significant portion of the wounds. These will be cleansed and dressed. Local lidocaine was instilled locally into the laceration. Once adequate anesthesia was achieved the wound was washed with Shur-Clens and explored. It was closed in a total of 2 simple interrupted 5-[address] of the brain was obtained. This was negative for intracranial hemorrhage or skull fracture. Patient will be discharged home return if worsening or concerns Radiography Diagnostic Testing: Radiology Impression Brain CT 10/16/20 14:31 IMPRESSION: Chronic involutional changes of the brain. Scalp hematoma overlying the right frontal bone. Electronically Signed: Ruddy Clement MD at 15:27 EDT , Service support , Discharge Plan Triage Chief Complaint: Fall ED Provider: Jermaine Cohen Dx/Rx/DC Orders Clinical Impression: Forehead laceration, Contusion of face, Multiple skin tears Instructions: ED Head Injury (Adult), ED Laceration, Face: Stitches or Tape, ED Skin Avulsion Prescriptions: No Action lisinopril 30 mg tablet 30 mg PO DAILY RF: 0 [id number]-algal oil [Metanx (algal oil)] 3 mg-35 mg-2 mg -90.314 mg capsule 1 cap PO BID RF: 0 Align 4 mg capsule 4 mg PO DAILY RF: 0 melatonin 5 mg capsule 5 mg PO QHS RF: 0 Biofreeze (menthol) 4 % gel 1 applic TOPICAL TID PRN (Reason: arthritis ) RF: 0 donepezil 10 mg tablet 10 mg PO QHS Qty: 30 RF: 3 memantine 10 mg tablet 10 mg PO BID Qty: 60 RF: 2 polyethylene glycol 3350 17 GM packet 1 packet PO DAILY RF: 0 allopurinol 100 MG tablet 200 mg PO DAILYCM RF: 0 simvastatin 20 MG tablet 20 mg PO QHS RF: 0 hydrochlorothiazide 25 MG tablet 25 mg PO DAILY RF: 0 finasteride 5 MG tablet 5 mg PO DAILY RF: 0 buspirone 15 MG tablet 1 tablet PO BID RF: 0 cholecalciferol (vitamin D3) 1,000 UNIT tablet,chewable 1,000 unit PO DAILY RF: 0 aspirin 81 MG tablet,chewable 81 mg PO DAILY@0800 RF: 0 celecoxib 200 MG capsule 200 mg PO DAILY RF: 0 diphenhydramine-acetaminophen 1 EACH tablet 1 - 2 each PO Q6H PRN (Reason: Pain) RF: 0 tamsulosin 0.4 MG capsule 0.4 mg PO DAILY RF: 0 alpha lipoic acid 100 MG capsule 100 mg PO DAILY RF: 0 Primary Care Provider: Macie Fenton Referrals: Macie Fenton MD [Primary Care Provider] - 7 Days for suture removal Disposition Disposition: Home, self care
[2020-10-16] MEDS: Lidocaine 1% (20 ml mdv) 20 ML Vial INFILT (15:24)
[2020-10-16 15:54] VITALS: BP 194/71; PULSE 60; RESP 18; O2SAT 96
== END 2020-10-16 15:57 | disposition home or self-care (01) ==
PROVIDERS: Emergency Provider Emergency Medicine; PCP Internal Medicine
DX: S01.81XA Laceration without foreign body of other part of head, initial encounter (principal); S51.011A Laceration without foreign body of right elbow, initial encounter; E78.2 Mixed hyperlipidemia; I10 Essential (primary) hypertension; G30.9 Alzheimer's disease, unspecified; F02.80 Dementia in other diseases classified elsewhere, unspecified severity, without behavioral disturbance, psychotic disturbance, mood disturbance, and anxiety; W19.XXXA Unspecified fall, initial encounter; Z87.891 Personal history of nicotine dependence; Z79.899 Other long term (current) drug therapy; Z79.82 Long term (current) use of aspirin
CPT/HCPCS: 12002; 70450; 99285; A4216

== ENCOUNTER 2021-01-02 17:23 | Emergency (ER) | payer MEDICARE, SELFPAY ==
[2021-01-02 17:25] VITALS: BP 173/74; PULSE 68; RESP 16; TEMP 36.3; O2SAT 97; BMI 40.6
--- NOTE | 2021-01-02 17:41 | EDS_ITS ---
HPI HPI - Fall History of Present Illness Chief Complaint: Fall Detail of Chief Complaint: Head trauma and large hole in the drywall according to Informant: spouse/S.O. and EMS Limited: dementia Occured/Mechanism Occurred: Hours Mechanism/Context: Yes same level fall and Yes cannot recall fall Narrative: Unknown Pain/Injury Pain Location: none Associated Symptoms Associated Symptoms: Positive for Loss of consciousness and Amnesia; Negative for Parasthesias, Weakness, Loss of function and Inability to ambulate Narrative Tetanus Immunization: 5-10 years Prior similar symptoms: Yes Recent Illness/Hospitalization: No PFSH PFSH Medical History Alzheimer's dementia without behavioral disturbance Anxiety state, unspecified Arthritis BPH w urinary obs/LUTS Diverticulitis of colon (without mention of hemorrhage) Essential hypertension Gout Gynecomastia, male Idiopathic peripheral neuropathy Metabolic syndrome Mixed hyperlipidemia Personal history of malignant neoplasm of large intestine Polyneuropathy, unspecified Primary osteoarthritis involving multiple joints Seasonal allergies Skin cancer SVT (supraventricular tachycardia) Unspecified sleep apnea Home Medications allopurinol 200 mg PO DAILYCM 03/07/13 [History Last Taken 07/24/18] buspirone 1 tablet PO BID 03/07/13 [History Last Taken 07/24/18] cholecalciferol (vitamin D3) 1,000 unit PO DAILY 03/07/13 [History Last Taken 07/24/18] finasteride 5 mg PO DAILY 03/07/13 [History Last Taken 07/24/18] hydrochlorothiazide 25 mg PO DAILY 03/07/13 [History Last Taken 07/24/18] polyethylene glycol 3350 1 packet PO DAILY 03/07/13 [History Last Taken 07/24/18] simvastatin 20 mg PO QHS 03/07/13 [History Last Taken 07/24/18] aspirin 81 mg PO DAILY@0800 10/19/13 [History Last Taken 07/24/18] celecoxib 200 mg PO DAILY 06/30/16 [History Last Taken 07/24/18] diphenhydramine-acetaminophen 1 - 2 each PO Q6H PRN 06/30/16 [History Last Taken 07/24/18] alpha lipoic acid 100 mg PO DAILY 06/06/18 [History Last Taken 07/24/18] tamsulosin 0.4 mg PO DAILY 06/06/18 [History Last Taken 07/24/18] Bifidobacterium infantis 4 mg capsule 4 mg PO DAILY 07/28/20 [History Last Taken Unknown] levomefolate Ca 3 mg-B6 35 mg-meB12 2 mg-algal oil 90.314 mg capsule 1 cap PO BID 07/28/20 [History Last Taken Unknown] lisinopril 30 mg tablet 30 mg PO DAILY 07/28/20 [History Last Taken Unknown] melatonin 5 mg capsule 5 mg PO QHS cap 07/28/20 [History Last Taken Unknown] menthol 4 % topical gel 1 applic TOPICAL TID PRN 07/28/20 [History Last Taken U nknown] donepezil 10 mg tablet 10 mg PO QHS #30 tablet 10/26/20 [Rx Last Taken Unknown] memantine 10 mg tablet 10 mg PO BID #60 tablet 10/26/20 [Rx Last Taken Unknown] Allergy/AdvReac Type Severity Reaction Status Date / Time ibuprofen Allergy Mild Rash Verified 01/02/21 17:28 Family History Mother Cancer Sister Colon cancer Brother Colon cancer Alzheimer disease Surgical History History of knee replacement procedure of right knee Social History (Updated 01/02/21 @ 17:[address] Kyree Longo MD) household members: spouse housing: house Smoking Status: Former smoker Tobacco: How many years used: 20 Electronic Cigarette Use: not used how long ago did patient quit smokin years ago second hand exposure: No alcohol intake: former substance use type: does not use ROS ROS ED ROS Narrative Patient is unable to contribute. He knows where he is at and his name. He denies everything else. He is amnestic. He is unaware that he caused a large hole in the drywall. Review of Systems ROS Unobtainable: due to mental status EXAM Physical Exam Const Vital Signs: 01/02/21 17:25 01/02/21 17:28 Temperature 97.4 F L Temperature Source Temporal Pulse Rate 68 Respiratory Rate 16 Respiratory Effort Normal Non-Labored Respiratory Depth Normal Respiratory Pattern Normal Blood Pressure 173/74 H Blood Pressure Mean 107 Pulse Ox 97 Oxygen Delivery Method Room Air Room Air Positive well nourished, well developed and obese General Appearance ED: well developed and NAD Nutritional Appearance: obese HEENT Reports normocephalic and TM's clear HEENT Narrative: There is no septal deviation hematoma. Ears are normal. There is no clinical findings of basal skull fracture. atraumatic Tympanic Membrane ED: Yes TM's clear Eyes PERRL and EOMs intact bilaterally Eyes Narrative: There is no subconjunctival hemorrhage noted. General Eye ED: Negative for pale conjunctiva or scleral icterus Neck full ROM, no lymphadenopathy and supple General: Negative for tenderness Chest Wall inspection of chest normal and palpation of chest normal Resp normal respiratory effort and clear to auscultation bilaterally Cardio regular rate, regular rhythm, S1 normal heart sound, S2 normal heart sound and no murmurs GI non-tender and non-distended Auscultation: normoactive bowel sounds Palpation: soft Back/Spine no CVA tenderness Cervical Spine: Negative for cervical spine tenderness Thoracic Spine / Upper Back: Negative for thoracic spinal tenderness Lumbar Spine / Lower Back: paraspinal muscle tenderness; Negative for lumbar spinal tenderness Extremity normal to inspection, full ROM, normal capillary refill, no joint enlargement and no clubbing, cyanosis or edema Neuro CN's II-XII intact bilaterally, moves all extremities and no sensory deficits noted Neuro Narrative: Negative clonus equivocal Babinski sign on the left. [place] Coma Scale: document GCS findings Spontaneous Obeys Commands Confused 14 Sensorium / Orientation: alert, oriented to person and oriented to place; Negative for oriented to time Psych mental status grossly normal Skin Lesions: no lesions Rashes: no rashes MDM MDM MDM Narrative Medical decision making narrative: With history of head trauma, amnesia and the amount of damage done to the drywall per the [place] CT head rule and since he is greater than 65 age with amnesia and GCS of 14 CT of the head is indicated and was ordered. Radiography Diagnostic Testing: Radiology Impression Brain CT 01/02/21 17:41 IMPRESSION: No acute intracranial hemorrhage or mass effect. Electronically Signed: Mehdi Regalado MD ([place]) at 18:21 EDT , Service support , CT was reviewed by ky and the radiology report was read. Discharge Plan Triage Chief Complaint: Fall ED Provider: Longo,Kyree Dx/Rx/DC Orders Clinical Impression: Concussion with loss of consciousness <= 30 min, Fall with injury, Alzheimer's dementia without behavioral disturbance Instructions: ED Concussion Prescriptions: No Action lisinopril 30 mg tablet 30 mg PO DAILY RF: 0 [id number]-algal oil [Metanx (algal oil)] 3 mg-35 mg-2 mg -90.314 mg capsule 1 cap PO BID RF: 0 Align 4 mg capsule 4 mg PO DAILY RF: 0 melatonin 5 mg capsule 5 mg PO QHS RF: 0 Biofreeze (menthol) 4 % gel 1 applic TOPICAL TID PRN (Reason: arthritis ) RF: 0 memantine 10 mg tablet 10 mg PO BID Qty: 60 RF: 3 donepezil 10 mg tablet 10 mg PO QHS Qty: 30 RF: 3 polyethylene glycol 3350 17 GM packet 1 packet PO DAILY RF: 0 allopurinol 100 MG tablet 200 mg PO DAILYCM RF: 0 simvastatin 20 MG tablet 20 mg PO QHS RF: 0 hydrochlorothiazide 25 MG tablet 25 mg PO DAILY RF: 0 finasteride 5 MG tablet 5 mg PO DAILY RF: 0 buspirone 15 MG tablet 1 tablet PO BID RF: 0 cholecalciferol (vitamin D3) 1,000 UNIT tablet,chewable 1,000 unit PO DAILY RF: 0 aspirin 81 MG tablet,chewable 81 mg PO DAILY@0800 RF: 0 celecoxib 200 MG capsule 200 mg PO DAILY RF: 0 diphenhydramine-acetaminophen 1 EACH tablet 1 - 2 each PO Q6H PRN (Reason: Pain) RF: 0 tamsulosin 0.4 MG capsule 0.4 mg PO DAILY RF: 0 alpha lipoic acid 100 MG capsule 100 mg PO DAILY RF: 0 Primary Care Provider: Macie Fenton Referrals: Macie Fenton MD [Primary Care Provider] - As Needed Disposition Disposition: Home, Self Care
--- NOTE | 2021-01-02 17:41 | CT_ITS ---
STUDY: CT BRAIN WITHOUT CONTRAST REASON FOR EXAM: Male, 80 years old. Head trauma, amnesia, loss of consciousness RADIATION DOSAGE (If Supplied By Facility): CTDIvol = ( 44.99 ) mGy, DLP = ( 880.47 ) mGycm TECHNIQUE: Transaxial CT imaging of the brain was performed without administration of intravenous contrast material. Individualized dose optimization techniques were used for this CT. COMPARISON: 10/16/2020 FINDINGS: Normal soft tissue structures. Normal calvarium. There is mild cerebral atrophy with widening of the extra-axial spaces and ventricular dilatation. There are areas of decreased attenuation within the white matter tracts of the supratentorial brain, consistent with microvascular disease changes. Normal basal ganglia and thalami. Normal brainstem. Normal cerebellum. Atherosclerosis of the carotid siphons and vertebral arteries. There is no intracranial hemorrhage. There are no findings of an acute ischemic infarction. Normal visualized paranasal sinuses. CT/Brain/Head without Contrast IMPRESSION: No acute intracranial hemorrhage or mass effect. Electronically Signed: Mehdi Regalado MD ([place]) at 18:21 EDT , Service support ,
== END 2021-01-02 18:53 | disposition home or self-care (01) ==
PROVIDERS: Emergency Provider Emergency Medicine; PCP Internal Medicine
DX: S06.0X1A Concussion with loss of consciousness of 30 minutes or less, initial encounter (principal); G30.9 Alzheimer's disease, unspecified; F02.80 Dementia in other diseases classified elsewhere, unspecified severity, without behavioral disturbance, psychotic disturbance, mood disturbance, and anxiety; W19.XXXA Unspecified fall, initial encounter; Y93.9 Activity, unspecified; Y92.9 Unspecified place or not applicable; E66.9 Obesity, unspecified; Z68.41 Body mass index [BMI] 40.0-44.9, adult; I10 Essential (primary) hypertension; I47.1 Supraventricular tachycardia; F41.9 Anxiety disorder, unspecified; G62.9 Polyneuropathy, unspecified; N40.0 Benign prostatic hyperplasia without lower urinary tract symptoms; M10.9 Gout, unspecified; E78.2 Mixed hyperlipidemia; M19.90 Unspecified osteoarthritis, unspecified site; Z87.19 Personal history of other diseases of the digestive system; Z85.038 Personal history of other malignant neoplasm of large intestine; Z85.828 Personal history of other malignant neoplasm of skin; Z79.82 Long term (current) use of aspirin; Z79.899 Other long term (current) drug therapy; Z87.891 Personal history of nicotine dependence
CPT/HCPCS: 70450; 99284

== ENCOUNTER → 2021-02-19 14:15 | Outpatient (CLI) | payer MEDICARE, SELFPAY ==
[2021-02-23 14:10] LABS: Albumin 3.9 g/dL (2.9-4.4); Alpha-1-Globulins 0.2 g/dL (0.0-0.4); Alpha-2-Globulins 1.1 g/dL (0.4-1.0); Free Kappa Light Chains 38.7 mg/L (3.3-19.4); Free Lambda Light Chains 25.8 mg/L (5.7-26.3); Gamma Globulin 0.8 g/dL (0.4-1.8); Immunoglobulin A 319 mg/dL (61-437); Immunoglobulin G 761 mg/dL (603-1613); Immunoglobulin M 55 mg/dL (15-143); PROEL- TOTAL PROTEIN 7.3 g/dL (6.0-8.5)
[2021-02-23 17:00] LABS: IMMUNOFIXATION RESULT,S Comment: (.)
== END ==
PROVIDERS: PCP Internal Medicine; Referring Provider Nurse Practitioner Family; Visit Provider Nurse Practitioner Family
DX: D47.2 Monoclonal gammopathy (principal); G62.9 Polyneuropathy, unspecified
CPT/HCPCS: 36415; 82784; 83883; 84165; 86334; 86335

== ENCOUNTER 2021-07-27 08:32 | Observation (INO) | payer MEDICARE, SELFPAY ==
[2021-07-27] VITALS (11 sets, daily range): BP systolic 161–189; BP diastolic 58–93; PULSE 49–61; RESP 14–18; TEMP 36.4–36.7; O2SAT 94–99; BMI 48.1
--- NOTE | 2021-07-27 08:49 | RAD_ITS ---
STUDY: X-RAY CHEST REASON FOR EXAM: Male, 81 years old. near syncope TECHNIQUE: AP COMPARISON: 06/30/2016 FINDINGS: EKG leads project over the chest. The lungs are clear and expanded. There is no demonstrated pleural abnormality. Normal size heart. Normal mediastinum and kurt. Normal visualized pulmonary arteries. There is atherosclerotic calcification of the aortic arch with tortuosity. Normal visualized thoracic spine. Normal visualized ribs, clavicles, and shoulders. There is no demonstrated abnormality of the visualized soft tissue structures of the upper abdomen. RAD/Chest 1 View (Portable) IMPRESSION: Nonacute portable x-ray examination of the chest. Electronically Signed: Mehdi Regalado MD ([place]) at 10:02 EDT ,
--- NOTE | 2021-07-27 08:51 | CT_ITS ---
STUDY: CT BRAIN WITHOUT CONTRAST REASON FOR EXAM: Male, 81 years old. Unsteady gait today RADIATION DOSAGE (If Supplied By Facility): CTDIvol = ( 44.99 ) mGy, DLP = ( 863.60 ) mGycm TECHNIQUE: Transaxial CT imaging of the brain was performed without administration of intravenous contrast material. Individualized dose optimization techniques were used for this CT. COMPARISON: 01/02/2021 FINDINGS: Normal soft tissue structures. Normal calvarium. There is mild cerebral atrophy with widening of the extra-axial spaces and ventricular dilatation. There are areas of decreased attenuation within the white matter tracts of the supratentorial brain, consistent with microvascular disease changes. Normal basal ganglia and thalami. Normal brainstem. Normal cerebellum. Atherosclerosis of the carotid arteries and vertebral arteries. There is no intracranial hemorrhage. There are no findings of an acute ischemic infarction. Normal visualized paranasal sinuses. CT/Brain/Head without Contrast IMPRESSION: No acute intracranial hemorrhage or mass effect. Electronically Signed: Mehdi Regalado MD ([place]) at 10:02 EDT Reading Location ID and State: [address] [place] [address] , Service support ,
--- NOTE | 2021-07-27 08:53 | EX.ED.DYSGE1 ---
HPI History of Present Illness Chief Complaint: Neuro S/Sx Detail of Chief Complaint: Gait disturbance noted this morning Informant: patient and EMS Narrative Narrative: Patient presents to the emergency department via EMS from home. Patient is a poor historian and does have history of dementia. Patient tells me he felt like he was going to pass out. EMS tells me that noted patient walking on the hallway and he was listing to the right and seemed off balance and that is why she called EMS. Patient has had similar episodes in the past and no etiology was found. Patient denies headache, chest pain, or shortness of breath. He denies recent illness. He is alert place and person as well as to year but not the month. Patient denies recent illness. Prior similar symptoms: Yes PFSH PFSH Medical History Alzheimer's dementia without behavioral disturbance Anxiety state, unspecified Arthritis BPH w urinary obs/LUTS Diverticulitis of colon (without mention of hemorrhage) Essential hypertension Gout Gynecomastia, male Idiopathic peripheral neuropathy Metabolic syndrome Mixed hyperlipidemia Monoclonal gammopathy Personal history of malignant neoplasm of large intestine Polyneuropathy, unspecified Polyneuropathy, unspecified Primary osteoarthritis involving multiple joints Seasonal allergies Skin cancer SVT (supraventricular tachycardia) Unspecified sleep apnea Home Medications allopurinol 200 mg PO DAILYCM 03/07/13 [History Last Taken 07/24/18] buspirone 1 tablet PO BID 03/07/13 [History Last Taken 07/24/18] finasteride 5 mg PO DAILY 03/07/13 [History Last Taken 07/24/18] hydrochlorothiazide 25 mg PO DAILY 03/07/13 [History Last Taken 07/24/18] simvastatin 20 mg PO QHS 03/07/13 [History Last Taken 07/24/18] aspirin 81 mg PO DAILY@0800 10/19/13 [History Last Taken 07/24/18] celecoxib 200 mg PO DAILY 06/30/16 [History Last Taken 07/24/18] levomefolate Ca 3 mg-B6 35 mg-meB12 2 mg-algal oil 90.314 mg capsule 1 cap PO BID 07/28/20 [History Last Taken Unknown] lisinopril 30 mg tablet 30 mg PO DAILY 07/28/20 [History Last Taken Unknown] melatonin 5 mg capsule 5 mg PO QHS cap 07/28/20 [History Last Taken Unknown] menthol 4 % topical gel 1 applic TOPICAL TID PRN 07/28/20 [History Last Taken Unknown] acetaminophen 500 mg tablet 500 - 2,000 mg PO DAILY tab 06/17/21 [History Last Taken Unknown] alpha lipoic acid 600 mg capsule 600 mg PO DAILY 06/17/21 [History Last Taken Unknown] cholecalciferol (vitamin D3) 125 mcg (5,000 unit) capsule 125 mcg PO DAILY 06/17/21 [History Last Taken Unknown] donepezil 10 mg tablet 10 mg PO QHS #90 tab 06/17/21 [Rx Last Taken Unknown] memantine 10 mg tablet 10 mg PO BID #180 tab 06/17/21 [Rx Last Taken Unknown] triamcinolone acetonide 0.1 % topical cream 1 applic TOPICAL DAILY 06/17/21 [History Last Taken Unknown] Allergy/AdvReac Type Severity Reaction Status Date / Time ibuprofen Allergy Mild Rash Verified 07/27/21 08:34 Family History Mother Cancer Sister Colon cancer Brother Colon cancer Alzheimer disease Surgical History History of knee replacement procedure of right knee Social History household members: spouse housing: house Smoking Status: Former smoker Tobacco: How many years used: 20 Electronic Cigarette Use: not used how long ago did patient quit smokin years ago second hand exposure: No alcohol intake: former substance use type: does not use ROS ROS ED Constitutional Constitutional ED: Reports systems reviewed and no addt'l complaints, except as documented; Denies body ache(s), change in weight or chills Eyes Eyes: Denies acute decrease in peripheral vision, change in vision, double vision or loss of vision ENT ENT ED: Reports none; Denies ear pain, lip swelling, loss taste/smell, neck pain, otalgia or sore throat Cardiovascular Cardiovascular: Reports none; Denies abdominal pain, chest pain with activity, leg edema, lightheadedness, palpitations, rapid heart rate or syncope Respiratory/Chest Respiratory/Chest: Reports none; Denies change in mental status, dry cough, dyspnea, hemoptysis, shortness of breath at rest or shortness of breath with exertion Gastrointestinal Gastrointestinal: Reports none; Denies abdominal pain, change in stool character, diarrhea, hematemesis, hematochezia, melena, rectal bleeding or vomiting Genitourinary Genitourinary ED: Reports none; Denies abdominal discomfort, anuria, dysuria, genital pain or polyuria Musculoskeletal Musculoskeletal: Reports none; Denies arthralgias, back pain, difficulty walking, extremity pain, muscle weakness or myalgias Integumentary Reports none; Denies abscess or rash Neurologic Neurologic: Reports none and other Details: Gait disturbance and near syncope ; Denies abnormal gait, confusion, focal weakness, frequent falls, headache(s), loss of vision, numbness, paresthesias, radicular pain, vertigo or weakness Psychiatric Psychiatric: Reports systems reviewed and no addt'l complaints, except as documented and none; Denies behavioral changes, confusion, difficulty concentrating, hallucinations, suicidal ideation, tactile hallucinations or visual hallucinations Endocrine Endocrinology: Denies none, cold intolerance, excessive sweating, fatigue or heat intolerance Hematologic/Lymphatic Hematologic/Lymphatic: Reports none; Denies anemia, easy bleeding or easy bruising Allergic/Immunologic Allergic/Immunologic ED: Denies as per HPI, none, lip swelling, mouth swelling, throat swelling, tongue swelling or hives EXAM Physical Exam Const Vital Signs: 07/27/21 08:34 07/27/21 10:25 Temperature 97.6 F L Temperature Source Temporal Pulse Rate 61 Pulse Rate [Lying] 53 L Pulse Rate [Sitting (for 1 minute prior to obtaining)] 53 L Pulse Rate [Standing (for 1 minute prior to obtaining)] 58 L Respiratory Rate 14 Blood Pressure 164/75 H Blood Pressure [Lying] 165/58 H Blood Pressure [Sitting (for 1 minute prior to obtaining)] 161/69 H Blood Pressure [Standing (for 1 minute prior to obtaining)] 189/93 H Blood Pressure Mean 104 Blood Pressure Mean [Lying] 93 Blood Pressure Mean [Sitting (for 1 minute prior to obtaining)] 99 Blood Pressure Mean [Standing (for 1 minute prior to obtaining)] 125 Pulse Ox 94 Oxygen Delivery Method Room Air Positive well nourished and well developed General Appearance ED: well developed and NAD HEENT Reports TM's clear and moist mucous membranes normocephalic and atraumatic; Negative for trauma or tenderness Tympanic Membrane ED: Yes TM's clear Eyes PERRL and EOMs intact bilaterally General Eye ED: Negative for pale conjunctiva or scleral icterus Neck no lymphadenopathy, supple and no JVD General: Negative for tenderness Chest Wall inspection of chest normal and palpation of chest normal Chest: Negative for tenderness Resp normal respiratory effort and clear to auscultation bilaterally Effort and Inspection: Negative for respiratory distress or pain with movement Auscultation: Negative for rhonchi, wheezes or diminished lung sounds Cardio regular rate, regular rhythm, S1 normal heart sound, S2 normal heart sound and no murmurs Peripheral Pulses: pulses 2+ throughout GI normal to inspection, nondistended, normoactive bowel sounds, soft to palpation, non-tender, non-distended and no masses Back/Spine no CVA tenderness and no thoracic nor lumbar tenderness Extremity normal to inspection General Extremety ED: Negative for edema General Extremity: Negative for edema Neuro CN's II-XII intact bilaterally, no sensory deficits noted and gait normal Neuro Narrative: Patient alert to person, place, and time as far as year but not to month. NIH stroke scale is 0. Finger-nose and heel mcdaniel testing within normal limits, negative Romberg, negative pronator drift, fundi benign Sensorium / Orientation: awake, alert, oriented to person, oriented to place and oriented to time Motor Exam: strength 5/5 throughout and strength abnormal Psych mental status grossly normal Skin no rashes or lesions noted and no wounds MDM MDM MDM Narrative Medical decision making narrative: IV line established on arrival. Patient placed on a quality assurance monitor. Orthostatic vital signs were negative. CT scan of the brain without contrast showed no acute disease process. At this point I do not feel patient had stroke symptoms and suspect possibly vasovagal episode and generalized weakness. I discussed with the events of this morning when she arrived in the department. At this point she is concerned that she cannot care for him at home as she does have a aide that comes in from 7 AM to noon Monday through Monday but not on weekends. Patient also may require memory care unit at some point. is wondering if he could be admitted to transitional care unit versus extended care facility. Case was discussed with hospitalist will evaluate patient for admission Lab Data Attestation: I reviewed the patient's lab results. Labs: Laboratory Results - last 24 hr 07/27/21 07/27/21 09:25 09:25 WBC 6.2 RBC 3.96 L Hgb 14.9 Hct 43.1 MCV 108.8 H MCH 37.6 H MCHC 34.6 RDW Std Deviation 50.1 H RDW Coeff of Veronica 12.4 Plt Count 166 MPV 10.1 Immature Gran % (Auto) 0.300 Neut % (Auto) 73.8 H Lymph % (Auto) 17.6 L Traverse % (Auto) 6.5 Eos % (Auto) 1.3 Baso % (Auto) 0.5 Absolute Neuts (auto) 4.6 Absolute Lymphs (auto) 1.09 Nucleated RBC % 0 Sodium 139 Potassium 4.3 Chloride 105 Carbon Dioxide 31.0 Anion Gap 3 L BUN 27 H Creatinine 1.15 Estim Creat Clear Calc 35.02 Est GFR (MDRD) Af Amer 78 Est GFR (MDRD) Non-Af 65 BUN/Creatinine Ratio 23.5 H Glucose 191 H Calcium 9.7 Troponin I High Sens 14 Radiography Diagnostic Testing: Clinical Impression(s) from Imaging Studies Chest X-Ray 07/27/21 08:49 IMPRESSION: Nonacute portable x-ray examination of the chest. Electronically Signed: Mehdi Regalado MD ([place]) at 10:02 EDT , Brain CT 07/27/21 08:51 IMPRESSION: No acute intracranial hemorrhage or mass effect. Electronically Signed: Mehdi Regalado MD ([place]) at 10:02 EDT , 1 view chest ray obtained interpreted by myself no acute disease process. Radiology was in agreement. EKG Initial EKG: Attestation: I personally reviewed and interpreted this EKG as follows: Comments: Sinus bradycardia with a rate of 52 bpm with some nonspecific ST changes Discharge Plan Dx/Rx/DC Orders Clinical Impression: Weakness, Near syncope Disposition Disposition: Acute Care [facility]
[2021-07-27 09:37] LABS: Absolute Lymphocyte Count 1.09 X10^3/uL (0.83-4.51); Absolute Neutrophil Count 4.6 X10^3/uL (2.0-7.7); Basophil# 0.03 X10^3/uL; Basophil% 0.5 % (0-1); Eosinophil# 0.08 X10^3/uL; Eosinophils% 1.3 % (0-5); Hematocrit 43.1 % (40-54); Hemoglobin 14.9 g/dL (13.0-16.5); Lymphocyte # 1.09 X10^3/ul (0.83-4.51); Lymphocyte % 17.6 % (19-41); Mean Corp Hgb Conc 34.6 g/dL (32-36); Mean Corpuscular Hgb 37.6 pg (27.0-32.0); Mean Corpuscular Volume 108.8 fL (80-94); Mean Platelet Vol. 10.1 fl (6.2-12.0); Monocyte% 6.5 % (0-10); NRBC Flagged by Analyzer 0 % (0-5); Neutrophil # 4.58 X10^3/uL (2.7-7.7); Neutrophil % 73.8 % (47-70); Platelet Count 166 K/mm3 (150-450); RBC Distribution Width CV 12.4 % (11.6-14.6); RBC Distribution Width SD 50.1 fl (35.1-43.9); Red Blood Count 3.96 M/mm3 (4.6-6.2); White Blood Count 6.2 K/mm3 (4.4-11.0)
[2021-07-27] MEDS: 0.9% Normal Saline 1,000 ML 150 ML IV (09:44)
[2021-07-27 09:55] LABS: Anion Gap 3 (5-15); BUN 27 mg/dL (7-18); BUN/Creat Ratio 23.5 RATIO (10-20); Calcium,Total 9.7 mg/dL (8.5-10.1); Chloride 105 mmol/L (98-107); Creatinine, Serum 1.15 mg/dL (0.70-1.30); EST Glomerular Filtration Rate 65 mL/min (>60); Est Glom Filt Rate - Afr Amer 78 mL/min (>60); Estimated Creatinine Clearance 35.02 ml/min; Glucose 191 mg/dL (74-106); Potassium 4.3 mmol/L (3.5-5.1); Sodium Level 139 mmol/L (136-145); Troponin-I HS 14 pg/mL (3.0-78.0)
--- NOTE | 2021-07-27 10:27 | ED.RN ---
PT STATES HE IS SHORT OF BREATH AMBULATING APPROX 10 FT TO DOOR AND BACK TO BED. DR. SEGUNDO NOTIFIED OF WIFES CONCERN FOR BEING ABLE TO CARE FOR HIM SAFELY AT HOME
--- NOTE | 2021-07-27 10:50 | HP.PCM.HOS_ITS ---
HPI - General General Date of Admission: 07/27/21 Date of Service: 07/27/21 Chief Complaint: Weakness, debility, severe polyneuropathy with difficulty walking. HPI Narrative The patient is an 81 y/o M w/ PMHx: Prediabetes, Alzheimer's dementia with unclear behavioral disturbance history, Morbid Obesity, HTN, HLD, BPH w/ Hx urinary obstruction, Anxiety and Depression, Hx SVT, Hx Colon CA, Hx monoclonal gammopathy, MINERVA, Chronic peripheral neuropathy following w/ Dr. Kauffman, Chronic imbalance issues evaluated in the past who presents to the [facility] ED on 07/27/21 with history of fatigue, weakness with increased difficulty walking which is chronic however worsening with difficulty with balance more pronounced over the last several weeks and increasingly so this AM. Patient also notes he did get out of the shower this AM and felt lightheadedness which passed. He was able to eat breakfast without issue. They do have aid in the AM only and she is not able to take care of him at home especially with his neuropathy which makes ambulatio n very difficult. Upon ED evaluation patient is alert to place and person as well as year which is baseline for him with underlying notable dementia. Work-up in the ED included T 97 point Next, heart rate 61, BP 164/75, respiratory rate 14, 94% on room air, orthostatic vital signs with noted increase of systolic blood pressure and diastolic pressure nearly 38 mmHg from laying and sitting to a standing position with no heart rate change, CBC with WC 6.2, hemoglobin 14.9, platelet 166 without marked shift, BMP with BUN/creatinine 27/1.15, glucose 191 otherwise not marked appearing, troponin 14, CT the brain with no acute intracranial finding, chest x-rays no acute cardiopulmonary finding, EKG with SB without acute evidence of ischemia. [facility] Medical History (Updated 07/27/21 @ 14:[address] Elin To MD) Alzheimer's dementia without behavioral disturbance Anxiety state, unspecified Arthritis BPH w urinary obs/LUTS Diverticulitis of colon (without mention of hemorrhage) Essential hypertension Gout Gynecomastia, male Idiopathic peripheral neuropathy Metabolic syndrome Mixed hyperlipidemia Monoclonal gammopathy Personal history of malignant neoplasm of large intestine Polyneuropathy, unspecified Polyneuropathy, unspecified Primary osteoarthritis involving multiple joints Seasonal allergies Skin cancer SVT (supraventricular tachycardia) Unspecified sleep apnea Home Medications allopurinol 200 mg PO DAILYCM 03/07/13 [History Last Taken 07/24/18] buspirone 1 tablet PO BID 03/07/13 [History Last Taken 07/24/18] finasteride 5 mg PO DAILY 03/07/13 [History Last Taken 07/24/18] hydrochlorothiazide 25 mg PO DAILY 03/07/13 [History Last Taken 07/24/18] simvastatin 20 mg PO QHS 03/07/13 [History Last Taken 07/24/18] aspirin 81 mg PO DAILY@0800 10/19/13 [History Last Taken 07/24/18] celecoxib 200 mg PO DAILY 06/30/16 [History Last Taken 07/24/18] levomefolate Ca 3 mg-B6 35 mg-meB12 2 mg-algal oil 90.314 mg capsule 1 cap PO BID 07/28/20 [History Last Taken Unknown] lisinopril 30 mg tablet 30 mg PO DAILY 07/28/20 [History Last Taken Unknown] melatonin 5 mg capsule 5 mg PO QHS cap 07/28/20 [History Last Taken Unknown] menthol 4 % topical gel 1 applic TOPICAL TID PRN 07/28/20 [History Last Taken Unknown] acetaminophen 500 mg tablet 500 - 2,000 mg PO DAILY tab 06/17/21 [History Last Taken Unknown] alpha lipoic acid 600 mg capsule 600 mg PO DAILY 06/17/21 [History Last Taken Unknown] cholecalciferol (vitamin D3) 125 mcg (5,000 unit) capsule 125 mcg PO DAILY 06/17/21 [History Last Taken Unknown] donepezil 10 mg tablet 10 mg PO QHS #90 tab 06/17/21 [Rx Last Taken Unknown] memantine 10 mg tablet 10 mg PO BID #180 tab 06/17/21 [Rx Last Taken Unknown] triamcinolone acetonide 0.1 % topical cream 1 applic TOPICAL DAILY 06/17/21 [History Last Taken Unknown] Allergy/AdvReac Type Severity Reaction Status Date / Time ibuprofen Allergy Mild Rash Verified 07/27/21 08:34 Family History (Updated 07/27/21 @ 14:[address] Elin To MD) Mother Cancer Sister Colon cancer Brother Colon cancer Alzheimer disease Father Colon cancer Surgical History (Updated 07/27/21 @ 14:[address] Elin To MD) History of knee replacement procedure of right knee S/P partial colectomy Social History household members: spouse housing: house Smoking Status: Former smoker Tobacco: How many years used: 20 Electronic Cigarette Use: not used how long ago did patient quit smokin years ago second hand exposure: No alcohol intake: former substance use type: does not use ROS ROS Narrative Admission Review of Systems: CONSTITUTIONAL: No weight loss, fever, chills, + weakness or fatigue. HEENT: Eyes: No visual loss, blurred vision, double vision or yellow sclerae. Ears, Nose, Throat: No hearing loss, sneezing, congestion, runny nose or sore throat. SKIN: No rash or itching, lesions, wounds. CARDIOVASCULAR: + LH, chronic edema, No chest pain, chest pressure or chest discomfort, palpitations, orthopnea, syncopal events. RESPIRATORY: No shortness of breath, cough or sputum, wheezing, hemoptysis. GASTROINTESTINAL: No anorexia, nausea, vomiting or diarrhea, abdominal pain, melena, BRBPR. GENITOURINARY: No dysuria, frequency, urgency or retention. NEUROLOGICAL: + Chronic imbalance, chronic neuropathy, dizziness episode, No headache, syncope, paralysis, ataxia, numbness or tingling in the extremities, focal weakness, change in bowel or bladder control, seizure. MUSCULOSKELETAL: + muscle, back pain, joint pain or stiffness. HEMATOLOGIC: No anemia, bleeding or bruising. LYMPHATICS: No enlarged nodes. No history of splenectomy. PSYCHIATRIC: + history of depression or anxiety. ENDOCRINOLOGIC: No reports of sweating, cold or heat intolerance. No polyuria or polydipsia. ALLERGIES: No history of asthma, hives, eczema or rhinitis. Vital Signs Vital Signs Vital Signs: 07/27/21 08:34 07/27/21 10:25 Temperature 97.6 F L Temperature Source Temporal Pulse Rate 61 Pulse Rate [Lying] 53 L Pulse Rate [Sitting (for 1 minute prior to obtaining)] 53 L Pulse Rate [Standing (for 1 minute prior to obtaining)] 58 L Respiratory Rate 14 Blood Pressure 164/75 H Blood Pressure [Lying] 165/58 H Blood Pressure [Sitting (for 1 minute prior to obtaining)] 161/69 H Blood Pressure [Standing (for 1 minute prior to obtaining)] 189/93 H Blood Pressure Mean 104 Blood Pressure Mean [Lying] 93 Blood Pressure Mean [Sitting (for 1 minute prior to obtaining)] 99 Blood Pressure Mean [Standing (for 1 minute prior to obtaining)] 125 Pulse Ox 94 Oxygen Delivery Method Room Air Weight Weight: 246 lb 7.629 oz Body Mass Index (BMI) 48.1 Physical Exam Narrative Physical Examination: General: Awake, alert, oriented to self and place, underlying severe dementia with marked short term memory impairment, remains cooperative, seated upright in ED bed in no apparent distress. Skin: Normal color, normal turgor, no icterus, no cyanosis except occasional staged ecchymoses and mild stasis changes lower extremities. HEENT: AT/NC, EOMI, PERRLA, mildly dry MM, no carotid bruits or JVD noted; however, thickened neck makes examination difficult. Lungs: Distent BS, diminished, > bases, likely secondary to habitus, no evidence of respiratory distress, no rales, ronchi or wheezing. Heart: Currently mildly bradycardic with regular rhythm; no gallop, rub audible. Abdomen: Soft, morbidly obese, NTTP, no obvious distention, distant normal BS, no obvious HSM; however, habitus makes exam difficult. Extremities: No cyanosis, no clubbing, mild ankle/pedal edema, not markedly maria ines ing. Neurological: Patient awake, alert, oriented as noted, cognitive function currently baseline intact with severe dementia; pupils equally reactive to light and accommodation, cranial nerves II-XII grossly normal, moving all 4 extremities, no focal deficits, strength moderately to severely globally decreased. Psychiatric: Affect appears flat, no acute evidence of depressive or anxiety feelings. Results Lab / Micro Data Result Diagrams: 07/27/21 09:25 07/27/21 09:25 Labs: Laboratory Results - last 24 hr 07/27/21 09:25: WBC 6.2, RBC 3.96 L, Hgb 14.9, Hct 43.1, MCV 108.8 H, MCH 37.6 H , MCHC 34.6, RDW Std Deviation 50.1 H, RDW Coeff of Veronica 12.4, Plt Count 166, MPV 10.1, Immature Gran % (Auto) 0.300, Neut % (Auto) 73.8 H, Lymph % (Auto) 17.6 L, Moffat % (Auto) 6.5, Eos % (Auto) 1.3, Baso % (Auto) 0.5, Absolute Neuts (auto) 4.6, Absolute Lymphs (auto) 1.09, Nucleated RBC % 0 07/27/21 09:25: Sodium 139, Potassium 4.3, Chloride 105, Carbon Dioxide 31.0, Anion Gap 3 L, BUN 27 H, Creatinine 1.15, Estim Creat Clear Calc 35.02, Est GFR (MDRD) Af Amer 78, Est GFR (MDRD) Non-Af 65, BUN/Creatinine Ratio 23.5 H, Glucose 191 H, Calcium 9.7, Troponin I High Sens 14 Radiology Impression Chest X-Ray 07/27/21 08:49 IMPRESSION: Nonacute portable x-ray examination of the chest. Electronically Signed: Mehdi Regalado MD ([place]) at 10:02 EDT , Brain CT 07/27/21 08:51 IMPRESSION: No acute intracranial hemorrhage or mass effect. Electronically Signed: Mehdi Regalado MD ([place]) at 10:02 EDT , Assessment & Plan Assessment/Plan (1) Weakness: PLAN: The patient is an 81 y/o M w/ PMHx: Prediabetes, Alzheimer's dementia with unclear behavioral disturbance history, Morbid Obesity, HTN, HLD, BPH w/ Hx urinary obstruction, Anxiety and Depression, Hx SVT, Hx Colon CA, Hx monoclonal gammopathy, MINERVA, Chronic peripheral neuropathy following w/ Dr. Kauffman, Chronic imbalance issues evaluated in the past who presents to the [facility] ED on 07/27/21 with history of fatigue, weakness with increased difficulty walking which is chronic however worsening with difficulty with balance more pronounced over the last several weeks and increasingly so this AM with episode of lightheadedness with resolved. #1. Debility, Weakness, Suspect mild vasovagal component and Chronic severe polyneuropathy: EKG in ED w/ sinus rhythm without evidence of acute ischemia, CXR w/ no acute cardiopulmonary findings, initial trop normal, CT head without acute findings. Will admit to MS telemetry to be cautious but plan de-escalate off once enzymes trend if unremarkable, place on a monitored bed to assure no acute myocardial infarction with serial cardiac enzymes and EKGs, maintain on fall precautions, judiciously hydrate, repeat AM orthostatics. PT/OT/CM consultation to ascertain stability and discharge needs. Patient follows outpatient w/ Dr. Kauffman for his chronic severe neuropathy. #2. Hyperglycemia with Pre-Diabetes mellitus type II w/ Prediabetes Hx: Admission blood sugar 191, hemoglobin A1c obtained and noted to be 5.5%, patient had eaten just prior to ED presentation, not on any diabetic regimen. Given HgBA1c appropriate range, he appears to at this time no longer be prediabetic. Will continue diet controlled interventions with ADA diet and D/C ISS. #3. Alzheimer's dementia with unclear behavioral disturbance history: From discussion with spouse suspect no behavioral issues, complicates presentation, contributing to patient's debility, will maintain on fall and aspiration precautions, therapies consulted as noted with likely plan for skilled facility placement and per discussion with spouse eventually the patient may need transition to a memory unit, continue patient home regimen donepezil and memantine regimen. #4. History of Colon CA: s/p remote partial colectomy, in remission, encourage continued outpatient follow-up with Oncology as previously arranged. #5. Anxiety and depression: We will continue patient home buspirone regimen with hold for sedation especially given difficulty with ambulation. #6. Morbid Obesity: Weight loss and lifestyle changes encouraged. #7. Hypertension: Continue home regimen including lisinopril, continue to closely monitor and resume hydrochlorothiazide in the a.m. if blood pressures and orthostatics are appropriate, PRN hydralazine. #8. Hyperlipidemia: Continue patient on statin therapy. #9. Gout: We will continue patient home allopurinol regimen. #10. BPH: We will continue patient home finasteride regimen. #11. MINERVA: CPAP q HS. #12. DVT Prophylaxis: SCDs, lovenox. #13. CODE status: Patient HCPELAINA is his who is present and living will is currently in place. Discussed CODE status at length including difference between FULL code, DNR-CCA and DNR-CC status. Following discussions about the differences in these status, requested DNR-CCA, no intubation status, no aggressive procedures. Advanced Care Planning Face to Face Time: 16 minutes. Charges/Coding Visit Charges OBSV E&M: 52280 Initial observation care L3 Procedures Hospitalists Procedures: 78313 Advncd Care Plan 30 Min
--- NOTE | 2021-07-27 11:00 | EKG12_ITS ---
Test Reason : WEAKNESS Blood Pressure : / mmHG Vent. Rate : 052 BPM Atrial Rate : 052 BPM P-R Int : 182 ms QRS Dur : 098 ms QT Int : 434 ms P-R-T Axes : -19 -32 041 degrees QTc Int : 403 ms Sinus bradycardia Left axis deviation Nonspecific ST abnormality Abnormal ECG Confirmed by SAMI HOYT, JULIENNE ([id number]), social media editor AYAH ARRIAGA ([id number]) on 07/29/2021 9:15:41 AM Referred By: DELORIS Confirmed By:JULIENNE GALLARDO MD
--- NOTE | 2021-07-27 11:02 | NURSING ---
MED SURG WHITE WEAKNESS, NEAR SYNCOPE, FAILURE TO THRIVE
[2021-07-27 11:32] LABS: Magnesium 2.3 mg/dL (1.6-2.6)
[2021-07-27 12:06] LABS: Bacteria 0 SEEN /hpf (None Seen); Mucous, Urine 0 SEEN /hpf (<or=2+); Red Blood Cells-Urine 0 SEEN /hpf (0-5); White Blood Cells 0 SEEN /hpf (0-5)
[2021-07-27 12:13] LABS: Hemoglobin A1c 5.5 % (3.8-5.6)
[2021-07-27 12:15] LABS: Color, Urine Yellow (Yellow); Glucose, Dipstick Normal (Normal); Ketone-Dipstick Negative (Negative); Leukocyte Esterase-Dipstick Negative /ul (Negative); Nitrite-Dipstick Negative (Negative); Occult Blood-Urine Negative /ul (Negative); Protein-Dipstick 30 mg/dl (Negative); Specific Gravity, Urine 1.015 (1.002-1.030); Urine Bilirubin Dipstick Negative (Negative); Urine Clarity Clear (Clear); Urine Urobilinogen Normal (Normal); Urine pH 6.5 (5.0 - 8.0)
[2021-07-27 12:21] LABS: Squamous Epithelial Cells - UA 0-5 SEEN /hpf (0-5)
[2021-07-27] MEDS: 0.9% Saline Lock 10 ML Syringe IV (14:03)
[2021-07-27] MEDS: 0.9% Normal Saline 1,000 ML 100 ML IV (14:04)
[2021-07-27 14:09] LABS: Troponin-I HS 29 pg/mL (3.0-78.0)
[2021-07-27 16:21] LABS: Bedside Glucose 96 mg/dL (74-106)
[2021-07-27 16:27] LABS: Troponin-I HS 17 pg/mL (3.0-78.0)
[2021-07-27] MEDS: hydrALAZINE 20 MG/ML Vial 10 MG IV (20:17)
[2021-07-27 20:51] LABS: Troponin-I HS 17 pg/mL (3.0-78.0)
[2021-07-27] MEDS: Atorvastatin Calcium 10 MG Tablet PO (21:13)
[2021-07-27] MEDS: Donepezil HCl 10 MG Tablet PO (21:13)
[2021-07-27] MEDS: Enoxaparin 40 MG/0.4 ML Syringe SC (21:13)
[2021-07-27] MEDS: MELATONIN 10 MG TABLET 5 MG PO (21:13)
[2021-07-27] MEDS: Memantine Hydrochloride 10 MG Tablet PO (21:13)
[2021-07-27] MEDS: busPIRone 15 MG TABLET PO (21:13)
[2021-07-27] MEDS: Acetaminophen 325 MG Tablet 650 MG PO (21:17)
[2021-07-28] VITALS (14 sets, daily range): BP systolic 147–197; BP diastolic 63–83; PULSE 49–79; RESP 15–36; TEMP 36.4–36.8; O2SAT 95–98
[2021-07-28] MEDS: 0.9% Normal Saline 1,000 ML 100 ML IV (00:19)
[2021-07-28] MEDS: hydrALAZINE 20 MG/ML Vial 10 MG IV ×2 (02:33→06:40)
--- NOTE | 2021-07-28 06:13 | PN.HOSP_ITS ---
Subjective Subjective Patient with no acute events overnight per self and per nursing report. He did have elevated blood pressures but this improved with as needed agents. His orthostatics this morning were unremarkable and he denies any lightheadedness or dizziness when he was assisted up. Discussed again patient's current status and debility with concern for also his being of the care for him and he remains amenable to skilled facility placement. Patient denies fevers, chills, nausea, emesis, abdominal pain, chest pain or dyspnea. Objective Data Objective Data Vital Signs: Vital Signs Temp Pulse Resp BP Pulse Ox 97.5 F L 58 L 36 H 188/83 H 98 07/28/21 02:18 07/28/21 04:45 07/28/21 04:45 07/28/21 02:33 07/28/21 04:45 Oxygen Delivery Method CPAP Weight: 246 lb 4.101 oz Body Mass Index (BMI) 48.1 Intake & Output: Intake and Output for Last 24 Hours 07/26/21 07/27/21 07/28/21 23:59 23:59 23:59 Intake Total 1350 / 1350 1400 / 1400 Output Total 400 / 400 750 / 750 Balance 950 / 950 650 / 650 Lab / Micro Data Result Diagrams: 07/28/21 06:34 07/28/21 06:34 Labs: Laboratory Results - last 24 hr 07/27/21 09:25: WBC 6.2, RBC 3.96 L, Hgb 14.9, Hct 43.1, MCV 108.8 H, MCH 37.6 H , MCHC 34.6, RDW Std Deviation 50.1 H, RDW Coeff of Veronica 12.4, Plt Count 166, MPV 10.1, Immature Gran % (Auto) 0.300, Neut % (Auto) 73.8 H, Lymph % (Auto) 17.6 L, Cherry % (Auto) 6.5, Eos % (Auto) 1.3, Baso % (Auto) 0.5, Absolute Neuts (auto) 4.6, Absolute Lymphs (auto) 1.09, Nucleated RBC % 0 07/27/21 09:25: Sodium 139, Potassium 4.3, Chloride 105, Carbon Dioxide 31.0, Anion Gap 3 L, BUN 27 H, Creatinine 1.15, Estim Creat Clear Calc 35.02, Est GFR (MDRD) Af Amer 78, Est GFR (MDRD) Non-Af 65, BUN/Creatinine Ratio 23.5 H, Glucose 191 H, Calcium 9.7, Troponin I High Sens 14 07/27/21 09:25: Magnesium 2.3 07/27/21 09:25: Hemoglobin A1c 5.5 07/27/21 11:56: Urine Color Yellow, Urine Clarity Clear, Urine pH 6.5, Ur Specific [place] 1.015, Urine Protein 30 H, Urine Glucose (UA) Normal, Urine Ketones Negative, Urine Occult Blood Negative, Urine Nitrite Negative, Urine Bilirubin Negative, Urine Urobilinogen Normal, Ur Leukocyte Esterase Negative, Urine RBC 0 SEEN, Urine WBC 0 SEEN, Ur Squamous Epith Cells 0-5 SEEN, Urine Bacteria 0 SEEN, Urine Mucus 0 SEEN 07/27/21 13:35: Troponin I High Sens 29 07/27/21 15:25: Troponin I High Sens 17 07/27/21 16:04: POC Glucose 96 07/27/21 20:00: Troponin I High Sens 17 Radiography Diagnostic Testing: Radiology Impression Chest X-Ray 07/27/21 08:49 IMPRESSION: Nonacute portable x-ray examination of the chest. Electronically Signed: Mehdi Regalado MD ([place]) at 10:02 EDT Reading Location ID and State: [address] [place] [address] , Service support , Brain CT 07/27/21 08:51 IMPRESSION: No acute intracranial hemorrhage or mass effect. Electronically Signed: Mehdi Regalado MD (Brooks) at 10:02 EDT , Physical Exam Narrative Physical Examination: General: Awake, alert, oriented to self and place, underlying severe dementia with marked short term memory impairment, remains cooperative, more interactive today, denies any complaints, seated upright in the [facility] bed. Skin: Normal color, normal turgor, no icterus, no cyanosis except occasional staged ecchymoses and mild stasis changes lower extremities. HEENT: AT/NC, EOMI, PERRLA, MMM. Lungs: Diminished, greater bases, appropriate effort, no evidence of respiratory distress, no rales, ronchi or wheezing. Heart: Regular rate with regular rhythm; no gallop, rub audible. Abdomen: Soft, morbidly obese, NTTP, no obvious distention, distant normal BS. Extremities: No cyanosis, no clubbing, mild ankle/pedal edema, not markedly pitting. Neurological: Patient awake, alert, oriented as noted, cognitive function currently baseline intact with severe dementia; pupils equally reactive to light and accommodation, cranial nerves II-XII grossly normal, moving all 4 extremities, no focal deficits, strength moderately to severely globally decreased. Psychiatric: Affect appears more interactive, no acute evidence of depressive or anxiety feelings. Assessment & Plan Assessment/Plan (1) Weakness: PLAN: The patient is an 81 y/o M w/ PMHx: Prediabetes, Alzheimer's dementia with unclear behavioral disturbance history, Morbid Obesity, HTN, HLD, BPH w/ Hx urinary obstruction, Anxiety and Depression, Hx SVT, Hx Colon CA, Hx monoclonal gammopathy, MINERVA, Chronic peripheral neuropathy following w/ Dr. Kauffman, Chronic imbalance issues evaluated in the past who presents to the [facility] ED on 07/27/21 with history of fatigue, weakness with increased difficulty walking which is chronic however worsening with difficulty with balance more pronounced over the last several weeks and increasingly so this AM with episode of lightheadedness with resolved. #1. Debility, Weakness, Suspect mild vasovagal component and Chronic severe polyneuropathy: EKG in ED w/ sinus rhythm without evidence of acute ischemia, CXR w/ no acute cardiopulmonary findings, initial trop normal, CT head without acute findings. Patient initially admitted to telemetry but patient with no events overnight, no recurrent episodes of dizziness and do suspect this potentially was vasovagal and contributed to by severe polyneuropathy, cardiac enzymes remain unremarkable. PT/OT/CM consultation to ascertain stability and discharge needs with expected SNF transition per discussion with patient spouse. #2. Hyperglycemia with Pre-Diabetes mellitus type II w/ Prediabetes Hx: Admission blood sugar 191, hemoglobin A1c obtained and noted to be 5.5%, patient had eaten just prior to ED presentation, not on any diabetic regimen. Given HgBA1c appropriate range, maintained on ADA diet only and discontinued the ISS. #3. Alzheimer's dementia with unclear behavioral disturbance history: From discussion with spouse suspect no behavioral issues, complicates presentation, contributing to patient's debility, will maintain on fall and aspiration precautions, therapies consulted as noted with likely plan for skilled facility placement and per discussion with spouse eventually the patient may need transition to a memory unit, continue patient home regimen donepezil and meman kwaku regimen. #4. History of Colon CA: s/p remote partial colectomy, in remission, encourage continued outpatient follow-up with Oncology as previously arranged. #5. Anxiety and depression: We will continue patient home buspirone regimen with hold for sedation especially given difficulty with ambulation. #6. Morbid Obesity: Weight loss and lifestyle changes encouraged. #7. Hypertension, Uncontrolled: Patient BP elevated through since admission, will continue lisinopril-HCTZ and add norvasc with further adjustments as needed, PRN hydralazine. #8. Hyperlipidemia: Continue patient on statin therapy. #9. Gout: We will continue patient home allopurinol regimen. #10. BPH: We will continue patient home finasteride regimen. #11. MINERVA: CPAP q HS. #12. DVT Prophylaxis: SCDs, lovenox. #13. CODE status: Patient HCPOA is his who is present and living will is currently in place. DNR-CCA, no intubation status. Charges/Coding Visit Charges Inpatient E&M: 91192 Subs Hosp L2
[2021-07-28 06:42] LABS: Absolute Neutrophil Count 7.2 X10^3/uL (2.0-7.7); Basophil# 0.03 X10^3/uL; Basophil% 0.3 % (0-1); Eosinophil# 0.12 X10^3/uL; Eosinophils% 1.2 % (0-5); Hematocrit 44.6 % (40-54); Hemoglobin 15.7 g/dL (13.0-16.5); Lymphocyte % 17.2 % (19-41); Mean Corp Hgb Conc 35.2 g/dL (32-36); Mean Corpuscular Hgb 37.6 pg (27.0-32.0); Mean Corpuscular Volume 106.7 fL (80-94); Mean Platelet Vol. 10.2 fl (6.2-12.0); Monocyte# 0.83 X10^3/uL; Monocyte% 8.4 % (0-10); NRBC Flagged by Analyzer 0 % (0-5); Neutrophil # 7.18 X10^3/uL (2.7-7.7); Neutrophil % 72.4 % (47-70); Platelet Count 186 K/mm3 (150-450); RBC Distribution Width CV 12.4 % (11.6-14.6); RBC Distribution Width SD 49.1 fl (35.1-43.9); Red Blood Count 4.18 M/mm3 (4.6-6.2); White Blood Count 9.9 K/mm3 (4.4-11.0)
[2021-07-28 07:04] LABS: ALB/GLOB Ratio 1.1 RATIO (0.9-2.4); AST(SGOT) 17 U/L (15-37); Alanine Aminotransfer ALT/SGPT 22 U/L (16-61); Albumin, Serum 3.7 g/dL (3.2-5.0); Alkaline Phosphatase 73 U/L (45-117); Anion Gap 4 (5-15); BUN 18 mg/dL (7-18); BUN/Creat Ratio 21.4 RATIO (10-20); Calcium,Total 9.6 mg/dL (8.5-10.1); Chloride 107 mmol/L (98-107); Creatinine, Serum 0.84 mg/dL (0.70-1.30); EST Glomerular Filtration Rate 93 mL/min (>60); Est Glom Filt Rate - Afr Amer 112 mL/min (>60); Estimated Creatinine Clearance 47.95 ml/min; Globulin 3.4 g/dL (2.2-4.2); Glucose 130 mg/dL (74-106); Potassium 3.7 mmol/L (3.5-5.1); Protein, Total 7.1 g/dL (6.4-8.2); Sodium Level 139 mmol/L (136-145)
[2021-07-28] MEDS: Allopurinol 100 MG Tablet 200 MG PO (09:44)
[2021-07-28] MEDS: Aspirin 81 MG TAB.CHEW PO (09:44)
[2021-07-28] MEDS: busPIRone 15 MG TABLET PO ×2 (09:45→22:25)
[2021-07-28] MEDS: hydroCHLOROthiazide 25 MG Tablet PO (09:45)
[2021-07-28] MEDS: Celecoxib 200 MG Capsule PO (09:45)
[2021-07-28] MEDS: Hydrocortisone 2.5% Crm 1 APPLIC TOPICAL (09:46)
[2021-07-28] MEDS: Lisinopril 10 MG Tablet 30 MG PO (09:47)
[2021-07-28] MEDS: Finasteride 5 MG Tablet PO (09:47)
[2021-07-28] MEDS: Memantine Hydrochloride 10 MG Tablet PO ×2 (09:47→22:28)
[2021-07-28] MEDS: amLODIPine 5 MG Tablet PO (09:47)
[2021-07-28] MEDS: Enoxaparin 40 MG/0.4 ML Syringe SC ×2 (09:47→22:26)
[2021-07-28] MEDS: Psyllium 1 PACKET PO (09:57)
[2021-07-28] MEDS: Acetaminophen 325 MG Tablet 650 MG PO (09:58)
--- NOTE | 2021-07-28 10:15 | CASEMGMT ---
SHASHANK FRIAS Assessment: Face to Face with pt for initial transition planning/care coordination assessment. SHASHANK FRIAS introduced self and role at [facility], pt voices understanding and consents to assessment. Pt is A/O x3 and answers all questions appropriately at this time. Care providers, pharmacy, and demographics verified/updated. Pt designated his to be his person to discuss dc plans with. TC to pt . Assessment also completed with her over the phone. Pt answers to the assessment questions and 's answers were different. Below is assessment based on 's answers d/t pt history of Alzheimers. Pt states he is not having difficulty ambulating in the home. Pt states she cannot handle him. States yesterday the aide and her almost dropped the patient. She states she is 85 years old herself. Admitting Dx: FTT, Imbalance with polyneuropathy PCP:Eliceo Specialists:Aden, cardio; Jamari, neuro; Estrada, uro; Pablo, derm; Fascione, pod Preferred Pharmacy: [facility] [place] Insurance: [facility] Prescription Benefit: yes LW/HPOA: Pt has a LW/DPOA on file at [facility]. His DPOA is his Sarah Thurman. LNOK: Sarah Thurman, ; Lelo Vidal, sister in law Living Arrangements: Pt lives with in a single story house with 3 steps to enter with a grab bar in the inside and outside of the door. Pt needs assistance with bathing, dressing, toileting and transfers. Transportation: Pt transports pt to medical appts. DME/HHC/SNF: Pt has a walker, lift chair and walk in shower. Pt has had [facility] in the past. He also was at [facility] for therapy approx 2.5 mos ago. Pt has not been in a SNF. Pt has a private aide through [facility] Mon-Fri from 7a-noon. Pt has a detention care policy that is reimbursing this per . Pt tearful during conversation. She states she would like pt to get therapy at [facility] then potentially come home if physically able or be placed snf in a memory care unit. Phone handed to AUDIO VISUAL COLLECTIONS COORDINATOR as stated [facility] is not an option. CM to follow. Advised pt to ask CM if any further question/concerns/needs arise, voices understanding. Pt Goal: S/T therapy at facility Plan: TBD pending therapy
--- NOTE | 2021-07-28 10:50 | CASEMGMT ---
Addendum entered by Nina Nuno 07/28/21 14:51: SW received message from Denise at [facility], they have beds available. PT/OT notes are available. SW faxed referral to [facility]. Plan: [facility] pending acceptance and pre-cert. Addendum entered by Nina Nuno 07/28/21 12:50: SW also asked Sarah about pt's vaccination status. Pt has had both COVID vaccinations and the Booster. SW placed a call to Denise at [facility] and left message regarding bed availability. Original Note: Social Work Note SW received referral for SNF placement. SW spoke with pt's Sarah. Sarah asked about pt going to [facility]. SW informed Sarah that [facility] is not in network with pt's insurance. SW verbally provided a list of SNF providers including quality and resource use data and consistent with the patient?s preferred geographic region, medical needs, and insurance network. Sarah states next choice is [facility] and if they cannot accept pt, next choice is [facility]. ROSELINE explained referral process and that pt will need pre-cert. Sarah states understanding. SW spent much time also providing support to Sarah. SW to fax referral to [facility] once PT/OT is complete. Plan: [facility] pending acceptance and pre-cert Nina Nuno MEDICAL DELIVERY TECHNICIAN, CRISIS INTERVENTION COUNSELOR
--- NOTE | 2021-07-28 10:58 | CASEMGMT ---
SHASHANK FRIAS discussed DIAZ form with patient via tc. SHASHANK FRIAS explained DIAZ form, patient voiced understanding. Pt gave verbal consent to sign form. Witnessed by Peña JAIN. Form filed in chart. Pt provided with a copy of signed DIAZ form. Patient had no further questions or concerns at this time.
--- NOTE | 2021-07-28 16:12 | CASEMGMT ---
Social Work Note SW received call from Denise at [facility] stating they can accept pt and will submit for pre-cert. Plan: [facility] pending pre-cert Nina Nuno MATERIAL CONTROL SUPERVISOR, BEVERAGE HOST
[2021-07-28] MEDS: Donepezil HCl 10 MG Tablet PO (22:25)
[2021-07-28] MEDS: Atorvastatin Calcium 10 MG Tablet PO (22:26)
[2021-07-28] MEDS: MELATONIN 10 MG TABLET 5 MG PO (22:27)
[2021-07-29] VITALS (15 sets, daily range): BP systolic 106–182; BP diastolic 54–85; PULSE 49–70; RESP 15–18; TEMP 36.1–36.7; O2SAT 93–99
[2021-07-29 05:32] LABS: Absolute Lymphocyte Count 2.01 X10^3/uL (0.83-4.51); Absolute Neutrophil Count 6.3 X10^3/uL (2.0-7.7); Basophil# 0.04 X10^3/uL; Basophil% 0.4 % (0-1); Eosinophil# 0.25 X10^3/uL; Eosinophils% 2.6 % (0-5); Hematocrit 41.6 % (40-54); Hemoglobin 14.5 g/dL (13.0-16.5); Lymphocyte # 2.01 X10^3/ul (0.83-4.51); Lymphocyte % 20.7 % (19-41); Mean Corp Hgb Conc 34.9 g/dL (32-36); Mean Corpuscular Hgb 37.2 pg (27.0-32.0); Mean Corpuscular Volume 106.7 fL (80-94); Mean Platelet Vol. 10.4 fl (6.2-12.0); Monocyte# 1.05 X10^3/uL; Monocyte% 10.8 % (0-10); NRBC Flagged by Analyzer 0 % (0-5); Neutrophil # 6.29 X10^3/uL (2.7-7.7); Platelet Count 164 K/mm3 (150-450); RBC Distribution Width CV 12.4 % (11.6-14.6); RBC Distribution Width SD 48.9 fl (35.1-43.9); White Blood Count 9.7 K/mm3 (4.4-11.0)
--- NOTE | 2021-07-29 05:47 | PN.HOSP_ITS ---
Subjective Subjective Patient with no acute events overnight per self and per nursing report. Patient with therapy evaluation this morning with some concern for hasty movements and some difficulty with activities with the recommendation for shelter facility placement. Patient reports still feeling fatigued but less so than day prior and following lengthy discussions about safety is still amenable to skilled facility placement short-term. Patient denies fevers, chills, nausea, emesis, abdominal pain, chest pain or dyspnea. Objective Data Objective Data Vital Signs: Vital Signs Temp Pulse Resp BP Pulse Ox 97.8 F 55 L 16 135/59 H 94 07/29/21 04:00 07/29/21 04:59 07/29/21 04:59 07/29/21 04:00 07/29/21 04:59 Oxygen Delivery Method CPAP Weight: 246 lb 4.101 oz Body Mass Index (BMI) 48.1 Intake & Output: Intake and Output for Last 24 Hours 07/27/21 07/28/21 07/29/21 23:59 23:59 23:59 Intake Total 1350 / 1350 2400 / 2600 200 / 200 Output Total 400 / 400 1150 / 1350 200 / 200 Balance 950 / 950 1250 / 1250 0 / 0 Lab / Micro Data Result Diagrams: 07/29/21 05:14 07/29/21 05:14 Labs: Laboratory Results - last 24 hr 07/28/21 06:34: WBC 9.9, RBC 4.18 L, Hgb 15.7, Hct 44.6, MCV 106.7 H, MCH 37.6 H , MCHC 35.2, RDW Std Deviation 49.1 H, RDW Coeff of Veronica 12.4, Plt Count 186, MPV 10.2, Immature Gran % (Auto) 0.500, Neut % (Auto) 72.4 H, Lymph % (Auto) 17.2 L, [place] % (Auto) 8.4, Eos % (Auto) 1.2, Baso % (Auto) 0.3, Absolute Neuts (auto) 7.2, Absolute Lymphs (auto) 1.70, Nucleated RBC % 0 07/28/21 06:34: Sodium 139, Potassium 3.7, Chloride 107, Carbon Dioxide 28.0, Anion Gap 4 L, BUN 18, Creatinine 0.84, Estim Creat Clear Calc 47.95, Est GFR ( MDRD) Af Amer 112, Est GFR (MDRD) Non-Af 93, BUN/Creatinine Ratio 21.4 H, Glucose 130 H, Calcium 9.6, Total Bilirubin 0.70, AST 17, ALT 22, Alkaline Phosp hatase 73, Total Protein 7.1, Albumin 3.7, Globulin 3.4, Albumin/Globulin Ratio 1.1 07/29/21 05:14: WBC 9.7, RBC 3.90 L, Hgb 14.5, Hct 41.6, MCV 106.7 H, MCH 37.2 H , MCHC 34.9, RDW Std Deviation 48.9 H, RDW Coeff of Veronica 12.4, Plt Count 164, MPV 10.4, Immature Gran % (Auto) 0.500, Neut % (Auto) 65.0, Lymph % (Auto) 20.7, [place] % (Auto) 10.8 H, Eos % (Auto) 2.6, Baso % (Auto) 0.4, Absolute Neuts (auto) 6.3, Absolute Lymphs (auto) 2.01, Nucleated RBC % 0 Physical Exam Narrative Physical Examination: General: Awake, alert, oriented to self and place, underlying severe dementia with marked short term memory impairment, seated upright in the [facility] bedside chair, no complaints at this time. Skin: Normal color, normal turgor, no icterus, no cyanosis except occasional staged ecchymoses and mild stasis changes lower extremities. HEENT: AT/NC, EOMI, PERRLA, MMM. Lungs: Diminished, greater bases, appropriate effort, no evidence of respiratory distress, no rales, ronchi or wheezing. Heart: Regular rate with regular rhythm; no gallop, rub audible. Abdomen: Soft, morbidly obese, NTTP, no obvious distention, distant normal BS. Extremities: No cyanosis, no clubbing, mild ankle/pedal edema, not markedly pitting. Neurological: Patient awake, alert, oriented as noted, cognitive function currently baseline intact with severe dementia; pupils equally reactive to light and accommodation, cranial nerves II-XII grossly normal, moving all 4 extremities, no focal deficits, strength moderately to severely globally decreased. Psychiatric: Affect appears normal, no acute evidence of depressive or anxiety feelings. Assessment & Plan Assessment/Plan (1) Weakness: PLAN: The patient is an 81 y/o M w/ PMHx: Prediabetes, Alzheimer's dementia with unclear behavioral disturbance history, Morbid Obesity, HTN, HLD, BPH w/ Hx urinary obstruction, Anxiety and Depression, Hx SVT, Hx Colon CA, Hx monoclonal gammopathy, MINERVA, Chronic peripheral neuropathy following w/ Dr. Kauffman, Chronic imbalance issues evaluated in the past who presents to the [facility] ED on 07/27/21 with history of fatigue, weakness with increased difficulty walking which is chronic however worsening with difficulty with balance more pronounced over the last several weeks and increasingly so this AM with episode of lightheadedness with resolved. #1. Debility, Weakness, Suspect mild vasovagal component and Chronic severe polyneuropathy: EKG in ED w/ sinus rhythm without evidence of acute ischemia, CXR w/ no acute cardiopulmonary findings, initial trop normal, CT head without acute findings. Patient initially admitted to telemetry but patient with no events overnight, no recurrent episodes of dizziness and do suspect this potentially was vasovagal and contributed to by severe polyneuropathy, cardiac enzymes remain unremarkable. PT/OT/CM evaluations ongoing with recommended skilled facility placement. Discussed with case management to encourage precertification initiation. #2. Hyperglycemia with Pre-Diabetes mellitus type II w/ Prediabetes Hx: Admission blood sugar 191, hemoglobin A1c obtained and noted to be 5.5%, patient had eaten just prior to ED presentation, not on any diabetic regimen. Given HgBA1c appropriate range, continue to ADA diet only and discontinued ISS #3. Alzheimer's dementia with unclear behavioral disturbance history: From discussion with spouse suspect no behavioral issues, complicates presentation, contributing to patient's debility, will maintain on fall and aspiration precautions, therapies consulted as noted with likely plan for skilled facility placement and per discussion with spouse eventually the patient may need transition to a memory unit, continue patient home regimen donepezil and memantine regimen. #4. History of Colon CA: s/p remote partial colectomy, in remission, encourage continued outpatient follow-up with Oncology as previously arranged. #5. Anxiety and depression: We will continue patient home buspirone regimen with hold for sedation especially given difficulty with ambulation. #6. Morbid Obesity: Weight loss and lifestyle changes encouraged. #7. Hypertension, Uncontrolled: Patient's BP remained elevated, will adjust and increase lisinopril, continue hydrochlorothiazide, increase Norvasc and continue to monitor with further adjustments as needed, as needed IV hydralazine additionally. #8. Hyperlipidemia: Continue patient on statin therapy. #9. Gout: We will continue patient home allopurinol regimen. #10. BPH: We will continue patient home finasteride regimen. #11. MINERVA: CPAP q HS. #12. DVT Prophylaxis: SCDs, lovenox. #13. CODE status: Patient HCPELAINA is his who is present and living will is currently in place. DNR-CCA, no intubation status. Charges/Coding Visit Charges Inpatient E&M: 44294 Subs Hosp L2
[2021-07-29 06:03] LABS: ALB/GLOB Ratio 1.1 RATIO (0.9-2.4); AST(SGOT) 53 U/L (15-37); Alanine Aminotransfer ALT/SGPT 22 U/L (16-61); Albumin, Serum 3.2 g/dL (3.2-5.0); Alkaline Phosphatase 67 U/L (45-117); Anion Gap 6 (5-15); BUN 22 mg/dL (7-18); BUN/Creat Ratio 24.2 RATIO (10-20); Calcium,Total 8.8 mg/dL (8.5-10.1); Chloride 105 mmol/L (98-107); Creatinine, Serum 0.91 mg/dL (0.70-1.30); EST Glomerular Filtration Rate 85 mL/min (>60); Est Glom Filt Rate - Afr Amer 103 mL/min (>60); Estimated Creatinine Clearance 44.26 ml/min; Glucose 114 mg/dL (74-106); Potassium 3.7 mmol/L (3.5-5.1); Protein, Total 6.2 g/dL (6.4-8.2); Sodium Level 138 mmol/L (136-145)
[2021-07-29] MEDS: Allopurinol 100 MG Tablet 200 MG PO (09:10)
[2021-07-29] MEDS: Enoxaparin 40 MG/0.4 ML Syringe SC ×2 (09:10→22:37)
[2021-07-29] MEDS: Celecoxib 200 MG Capsule PO (09:10)
[2021-07-29] MEDS: Aspirin 81 MG TAB.CHEW PO (09:10)
[2021-07-29] MEDS: hydroCHLOROthiazide 25 MG Tablet PO (09:10)
[2021-07-29] MEDS: amLODIPine 5 MG Tablet PO ×2 (09:10→12:59)
[2021-07-29] MEDS: Finasteride 5 MG Tablet PO (09:11)
[2021-07-29] MEDS: Lisinopril 10 MG Tablet 30 MG PO (09:11)
[2021-07-29] MEDS: busPIRone 15 MG TABLET PO ×2 (09:11→22:37)
[2021-07-29] MEDS: Memantine Hydrochloride 10 MG Tablet PO ×2 (09:11→22:37)
[2021-07-29] MEDS: Hydrocortisone 2.5% Crm 1 APPLIC TOPICAL (09:14)
--- NOTE | 2021-07-29 11:55 | CASEMGMT ---
Addendum entered by Nina Nuno 07/29/21 17:32: SW did provide Sarah with Medicaid Application and Medicaid number. SW also provided Sarah with community resources for home improvements. Original Note: Social Work Note SW updated that pt's Sarah is present at [facility] and requesting to speak to this worker. SW spoke with pt's Sarah. Sarah states she called pt's insurance ([employer]) and was told that pt's out of network benefits are the same as in network benefits. Sarah states she really wants pt to go to [facility]. Sarah states she has heard bad things about [facility]. Sarah states [facility] is close in location to her. SW explained that switching nursing homes will now delay the process as pt has been accepted to [facility] and pre-cert was started so insurance may not cover pt's continued stay at [facility]. Sarah state she doesn't care about money, really wants pt to go to [facility]. SW informed Sarah that this worker will check with [facility] regarding bed availability, etc. Sarah states that she has a HHC aide through [facility] that comes Monday-Monday 7:00am-12:00pm but she has no help in the afternoon or weekends. Sarah states that their home is not wheelchair accessible and that has caused problems too. Sarah states it would cost her around $20,000 to make their home wheelchair accessible. Sarah states that pt will likely need prison care at [facility]. SW spoke with Sarah about applying for Medicaid. Sarah states that pt has a termite exterminator care policy. SW encouraged Sarah to still look into Medicaid and that this worker can provide Medicaid Application and number. Sarah states understanding. Sarah becoming teary eyed during conversation. SW offered support to Sarah. ROSELINE placed a call to Marlyn at [facility] and provided referral. Marlyn states that if pt has [employer] Medicare PPO then it is correct that typically out of network benefits are the same as in network benefits. Marlyn states she is familiar with pt as pt has been on wait list for their bridges program and pt has an apartment ready now in bridges program. Marlyn states she will review referral. ROSELINE faxed referral to [facility]. Plan: [facility] pending acceptance and pre-cert Nina Nuno AUTO APPRAISER, INSPECTOR ELECTROMECHANICAL
[2021-07-29] MEDS: hydrALAZINE 20 MG/ML Vial IV (12:59)
[2021-07-29] MEDS: 0.9% Saline Lock 10 ML Syringe IV (13:04)
--- NOTE | 2021-07-29 17:31 | CASEMGMT ---
Social Work Note SW received call from Marlyn at [facility] stating they can accept pt and submitted for pre-cert. ROSELINE placed a call to pt's Sarah and updated her that [facility] is able to accept pt pending pre-cert. Sarah states understanding. ROSELINE placed a call to Denise at [place] and asked her to cancel pre-cert. Plan: [facility] pending pre-cert. Nina Nuno BED CONTROL SPECIALIST, SHEARER PR[employer]ED [employer] BOARDS
[2021-07-29] MEDS: Donepezil HCl 10 MG Tablet PO (22:37)
[2021-07-29] MEDS: MELATONIN 10 MG TABLET 5 MG PO (22:37)
[2021-07-29] MEDS: Atorvastatin Calcium 10 MG Tablet PO (22:38)
[2021-07-30] VITALS (16 sets, daily range): BP systolic 135–158; BP diastolic 52–80; PULSE 48–74; RESP 14–22; TEMP 36.4–36.7; O2SAT 92–100
--- NOTE | 2021-07-30 06:05 | PCM.PN.HOSP ---
Subjective Subjective Patient with no acute events overnight per self and per nursing report. Patient continues to work with therapies and most notable difficulties are attempting to get up from any type of seated or laying position in addition to patient continuing to make rushed movement decisions. Patient and family remain amenable to [facility] facility placement which is pending precertification. Patient denies fevers, chills, nausea, emesis, abdominal pain, chest pain or dyspnea. Objective Data Objective Data Vital Signs: Vital Signs Temp Pulse Resp BP Pulse Ox 97.8 F 50 L 14 144/52 H 98 07/30/21 03:03 07/30/21 05:00 07/30/21 05:00 07/30/21 03:03 07/30/21 05:00 Oxygen Delivery Method CPAP Weight: 244 lb 4.355 oz Body Mass Index (BMI) 48.1 Intake & Output: Intake and Output for Last 24 Hours 07/28/21 07/29/21 07/30/21 23:59 23:59 23:59 Intake Total 2400 / 2600 880 / 880 Output Total 1150 / 1350 500 / 500 600 / 600 Balance 1250 / 1250 380 / 380 -600 / -600 Lab / Micro Data Result Diagrams: 07/30/21 06:02 07/30/21 06:02 Physical Exam Narrative Physical Examination: General: Awake, alert, oriented to self and place, underlying severe dementia with marked short term memory impairment, seated upright in the MS bed, no complaints at this time. Skin: Normal color, normal turgor, no icterus, no cyanosis except occasional staged ecchymoses and mild stasis changes lower extremities. HEENT: AT/NC, EOMI, PERRLA, MMM. Lungs: Diminished, greater bases, appropriate effort, no evidence of respiratory distress, no rales, ronchi or wheezing. Heart: Regular rate with regular rhythm; no gallop, rub audible. Abdomen: Soft, morbidly obese, NTTP, no obvious distention, distant normal BS. Extremities: No cyanosis, no clubbing, mild ankle/pedal edema, not markedly pitting. Neurological: Patient awake, alert, oriented as noted, cognitive function currently baseline intact with severe dementia; pupils equally reactive to light and accommodation, cranial nerves II-XII grossly normal, moving all 4 extremities, no focal deficits, strength moderately to severely globally decreased. Psychiatric: Affect appears fatigued this AM, no acute evidence of depressive or anxiety feelings. Assessment & Plan Assessment/Plan (1) Weakness: PLAN: The patient is an 81 y/o M w/ PMHx: Prediabetes, Alzheimer's dementia with unclear behavioral disturbance history, Morbid Obesity, HTN, HLD, BPH w/ Hx urinary obstruction, Anxiety and Depression, Hx SVT, Hx Colon CA, Hx monoclonal gammopathy, MINERVA, Chronic peripheral neuropathy following w/ Dr. Kauffman, Chronic imbalance issues evaluated in the past who presents to the [facility] ED on 07/27/21 with history of fatigue, weakness with increased difficulty walking which is chronic however worsening with difficulty with balance more pronounced over the last several weeks and increasingly so this AM with episode of lightheadedness with resolved. #1. Debility, Weakness, Suspect mild vasovagal component and Chronic severe polyneuropathy: EKG in ED w/ sinus rhythm without evidence of acute ischemia, CXR w/ no acute cardiopulmonary findings, initial trop normal, CT head without acute findings. Patient initially admitted to telemetry but patient with no events overnight, no recurrent episodes of dizziness and do suspect this potentially was vasovagal and contributed to by severe polyneuropathy, cardiac enzymes remain unremarkable. PT/OT/CM evaluations ongoing with recommended skilled facility placement. Awaiting precert. #2. Hyperglycemia with Pre-Diabetes mellitus type II w/ Prediabetes Hx: Admission blood sugar 191, hemoglobin A1c obtained and noted to be 5.5%, patient had eaten just prior to ED presentation, not on any diabetic regimen. Given HgBA1c appropriate range, continue to ADA diet only and discontinued ISS. #3. Hypertension, Uncontrolled: Patient's BP remained elevated following admission, adjusted regimen with increase to lisinopril, continued hydrochlorothiazide, increased Norvasc with some BP improvement; however, do note still some AM elevations prior to taking AM medications, will continue to monitor and alter as needed, as needed IV hydralazine. #4. Alzheimer's dementia with unclear behavioral disturbance history: From discussion with spouse suspect no behavioral issues, complicates presentation, contributing to patient's debility, will maintain on fall and aspiration precautions, therapies consulted as noted with likely plan for skilled facility placement and per discussion with spouse eventually the patient may need transition to a memory unit, continue patient home regimen donepezil and memantine regimen. #5. History of Colon CA: s/p remote partial colectomy, in remission, encourage continued outpatient follow-up with Oncology as previously arranged. #6. Anxiety and depression: We will continue patient home buspirone regimen with hold for sedation especially given difficulty with ambulation. #7. Morbid Obesity: Weight loss and lifestyle changes encouraged. #8. Hyperlipidemia: Continue patient on statin therapy. #9. Gout: We will continue patient home allopurinol regimen. #10. BPH: We will continue patient home finasteride regimen. #11. MINERVA: CPAP q HS. #12. DVT Prophylaxis: SCDs, lovenox. #13. CODE status: Patient HCPOA is his who is present and living will is currently in place. DNR-CCA, no intubation status. Charges/Coding Visit Charges Inpatient E&M: 50364 Subs Hosp L2
[2021-07-30 06:45] LABS: Absolute Lymphocyte Count 1.76 X10^3/uL (0.83-4.51); Absolute Neutrophil Count 5.7 X10^3/uL (2.0-7.7); Basophil# 0.04 X10^3/uL; Basophil% 0.5 % (0-1); Eosinophil# 0.15 X10^3/uL; Eosinophils% 1.7 % (0-5); Hematocrit 43.4 % (40-54); Hemoglobin 15.2 g/dL (13.0-16.5); Lymphocyte # 1.76 X10^3/ul (0.83-4.51); Lymphocyte % 20.5 % (19-41); Mean Corpuscular Hgb 37.6 pg (27.0-32.0); Mean Corpuscular Volume 107.4 fL (80-94); Monocyte% 10.5 % (0-10); NRBC Flagged by Analyzer 0 % (0-5); Neutrophil # 5.69 X10^3/uL (2.7-7.7); Neutrophil % 66.2 % (47-70); Platelet Count 189 K/mm3 (150-450); RBC Distribution Width CV 12.6 % (11.6-14.6); RBC Distribution Width SD 50.4 fl (35.1-43.9); Red Blood Count 4.04 M/mm3 (4.6-6.2); White Blood Count 8.6 K/mm3 (4.4-11.0)
[2021-07-30 06:58] LABS: AST(SGOT) 45 U/L (15-37); Alanine Aminotransfer ALT/SGPT 26 U/L (16-61); Albumin, Serum 3.4 g/dL (3.2-5.0); Alkaline Phosphatase 71 U/L (45-117); Anion Gap 6 (5-15); BUN 32 mg/dL (7-18); BUN/Creat Ratio 28.6 RATIO (10-20); Calcium,Total 9.3 mg/dL (8.5-10.1); Chloride 103 mmol/L (98-107); Creatinine, Serum 1.12 mg/dL (0.70-1.30); EST Glomerular Filtration Rate 67 mL/min (>60); Est Glom Filt Rate - Afr Amer 81 mL/min (>60); Estimated Creatinine Clearance 35.96 ml/min; Globulin 3.5 g/dL (2.2-4.2); Glucose 113 mg/dL (74-106); Potassium 3.8 mmol/L (3.5-5.1); Protein, Total 6.9 g/dL (6.4-8.2); Sodium Level 137 mmol/L (136-145)
[2021-07-30] MEDS: hydroCHLOROthiazide 25 MG Tablet PO (09:51)
[2021-07-30] MEDS: amLODIPine 10 MG Tablet PO (09:51)
[2021-07-30] MEDS: Allopurinol 100 MG Tablet 200 MG PO (09:51)
[2021-07-30] MEDS: Hydrocortisone 2.5% Crm 1 APPLIC TOPICAL (09:51)
[2021-07-30] MEDS: Aspirin 81 MG TAB.CHEW PO (09:51)
[2021-07-30] MEDS: Celecoxib 200 MG Capsule PO (09:51)
[2021-07-30] MEDS: busPIRone 15 MG TABLET PO ×2 (09:51→20:34)
[2021-07-30] MEDS: Memantine Hydrochloride 10 MG Tablet PO ×2 (09:51→20:34)
[2021-07-30] MEDS: Finasteride 5 MG Tablet PO (09:52)
[2021-07-30] MEDS: Enoxaparin 40 MG/0.4 ML Syringe SC ×2 (09:52→20:35)
[2021-07-30] MEDS: Lisinopril 40 MG Tablet PO (09:53)
--- NOTE | 2021-07-30 10:00 | CASEMGMT ---
Social Work Note SW received update that pt's Sarah is currently at [facility] and requesting to speak to this worker. SW in to speak with Sarah. Sarah with many questions and SW answered questions. SW informed Sarah that pre-cert is still pending for [facility] and pt nanci remain at [facility] until pre-cert is obtained. Sarah states understanding. ROSELINE spoke with Marlyn at [facility], pre-cert is still pending. Plan: [facility] skilled pending pre-cert Nina Nuno BURGLARY INVESTIGATOR, METALWORKING INSTRUCTOR
--- NOTE | 2021-07-30 16:05 | CASEMGMT ---
Social Work Note SW placed a call to Marlyn at [facility] and pre-cert is still pending. PAS/RR completed. ROSELINE placed Green sheet, transport forms, PAS/RR, PAS/RR results and COVID tool on pt's chart in the event pre-cert is obtained. Pt will need COVID test on day of discharge. Plan: [facility] pending pre-cert. Nina Nuno TAPE MACHINE TAILER, REAL ESTATE JOB TITLES
--- NOTE | 2021-07-30 18:00 | CASEMGMT ---
Social Work Note SW updated that pt's Sarah is present at [facility] and requesting to speak to this SW. SW in to speak with Sarah. Sarah asked about status of pre-cert. SW informed Sarah that pre-cert is still pending, pt will likely be at [facility] through the weekend. Sarah states understanding. Plan: [facility] pending pre-cert Nina Nuno SURVEILLANCE OBSERVER, MORTGAGE CLERK
[2021-07-30] MEDS: MELATONIN 10 MG TABLET 5 MG PO (20:34)
[2021-07-30] MEDS: Donepezil HCl 10 MG Tablet PO (20:35)
[2021-07-30] MEDS: Atorvastatin Calcium 10 MG Tablet PO (20:36)
[2021-07-31] VITALS (9 sets, daily range): BP systolic 131–150; BP diastolic 50–66; PULSE 49–68; RESP 15–19; TEMP 36.1–36.8; O2SAT 95–99
--- NOTE | 2021-07-31 06:05 | PN.HOSP_ITS ---
Subjective Subjective Patient with no acute events overnight per self and per nursing report. Patient is upright and in the bedside chair this morning eating breakfast. He is able to recognize me as his physician today which is good considering he has significant short-term memory loss chronically. He denies any complaints. Patient denies fevers, chills, nausea, emesis, abdominal pain, chest pain or dyspnea. Objective Data Objective Data Vital Signs: Vital Signs Temp Pulse Resp BP Pulse Ox 97.2 F L 68 18 131/52 H 98 07/31/21 03:06 07/31/21 03:06 07/31/21 03:06 07/31/21 03:06 07/31/21 03:06 Oxygen Delivery Method Room Air Weight: 243 lb 9.773 oz Body Mass Index (BMI) 48.1 Intake & Output: Intake and Output for Last 24 Hours 07/29/21 07/30/21 07/31/21 23:59 23:59 23:59 Intake Total 880 / 880 550 / 550 Output Total 500 / 500 1400 / 1400 Balance 380 / 380 -850 / -850 Lab / Micro Data Result Diagrams: 07/30/21 06:02 07/30/21 06:02 Labs: Laboratory Results - last 24 hr 07/30/21 06:02: WBC 8.6, RBC 4.04 L, Hgb 15.2, Hct 43.4, MCV 107.4 H, MCH 37.6 H , MCHC 35.0, RDW Std Deviation 50.4 H, RDW Coeff of Veronica 12.6, Plt Count 189, MPV 11.0, Immature Gran % (Auto) 0.600, Neut % (Auto) 66.2, Lymph % (Auto) 20.5, Calvert % (Auto) 10.5 H, Eos % (Auto) 1.7, Baso % (Auto) 0.5, Absolute Neuts (auto) 5.7, Absolute Lymphs (auto) 1.76, Nucleated RBC % 0 07/30/21 06:02: Sodium 137, Potassium 3.8, Chloride 103, Carbon Dioxide 28.0, Anion Gap 6, BUN 32 H, Creatinine 1.12, Estim Creat Clear Calc 35.96, Est GFR (MDRD) Af Amer 81, Est GFR (MDRD) Non-Af 67, BUN/Creatinine Ratio 28.6 H, Glucose 113 H, Calcium 9.3, Total Bilirubin 0.80, AST 45 H, ALT 26, Alkaline Phosphatase 71, Total Protein 6.9, Albumin 3.4, Globulin 3.5, Albumin/Globulin Ratio 1.0 Physical Exam Narrative Physical Examination: General: Awake, alert, oriented to self and place, underlying severe dementia with marked short term memory impairment does recognize the hospitalist physician today as his physician, seated upright in the bedside chair. Skin: Normal color, normal turgor, no icterus, no cyanosis except occasional staged ecchymoses and mild stasis changes lower extremities. HEENT: AT/NC, EOMI, PERRLA, MMM. Lungs: Diminished, greater bases, appropriate effort, no evidence of respiratory distress, no rales, ronchi or wheezing. Heart: Regular rate with regular rhythm; no gallop, rub audible. Abdomen: Soft, morbidly obese, NTTP, no obvious distention, distant normal BS. Extremities: No cyanosis, no clubbing, mild ankle/pedal edema, not markedly pitting. Neurological: Patient awake, alert, oriented as noted, cognitive function currently baseline intact with severe dementia; pupils equally reactive to light and accommodation, cranial nerves II-XII grossly normal, moving all 4 extremities, no focal deficits, strength improving, moderately to severely globally decreased. Psychiatric: Affect appears alert, eating breakfast, no acute evidence of depres sive or anxiety feelings. Assessment & Plan Assessment/Plan (1) Weakness: PLAN: The patient is an 81 y/o M w/ PMHx: Prediabetes, Alzheimer's dementia with unclear behavioral disturbance history, Morbid Obesity, HTN, HLD, BPH w/ Hx urinary obstruction, Anxiety and Depression, Hx SVT, Hx Colon CA, Hx monoclonal gammopathy, MINERVA, Chronic peripheral neuropathy following w/ Dr. Kauffman, Chronic imbalance issues evaluated in the past who presents to the [facility] ED on 07/27/21 with history of fatigue, weakness with increased difficulty walking which is chronic however worsening with difficulty with balance more pronounced over the last several weeks and increasingly so this AM with episode of lightheadedness with resolved. #1. Debility, Weakness, Suspect mild vasovagal component and Chronic severe polyneuropathy: EKG in ED w/ sinus rhythm without evidence of acute ischemia, CXR w/ no acute cardiopulmonary findings, initial trop normal, CT head without acute findings. Patient initially admitted to telemetry but patient with no events overnight, no recurrent episodes of dizziness and do suspect this p otentially was vasovagal and contributed to by severe polyneuropathy, cardiac enzymes remain unremarkable. PT/OT/CM evaluations ongoing with recommended skilled facility placement with plan transition however patient is awaiting precertification. #2. Hyperglycemia with Pre-Diabetes mellitus type II w/ Prediabetes Hx: Admission blood sugar 191, hemoglobin A1c obtained and noted to be 5.5%, patient had eaten just prior to ED presentation, not on any diabetic regimen. Given HgBA1c appropriate range, continue to ADA diet only and discontinued ISS. #3. Hypertension, Uncontrolled: Patient's BP remained elevated following admission, adjusted regimen with increase to lisinopril, continued hydroc hlorothiazide, increased Norvasc with some BP improvement; however, do note still some AM elevations prior to taking AM medications, 07/31/2021 BP did improve. We will continue to monitor and patient will need follow-up BMP at skilled transition given electrolyte potential alterations with new regimen, as needed IV hydralazine. #4. Alzheimer's dementia with unclear behavioral disturbance history: From discussion with spouse suspect no behavioral issues, complicates presentation, contributing to patient's debility, will maintain on fall and aspiration precautions, therapies consulted as noted with likely plan for skilled facility placement and per discussion with spouse eventually the patient may need transition to a memory unit, continue patient home regimen donepezil and memantine regimen. #5. History of Colon CA: s/p remote partial colectomy, in remission, encourage continued outpatient follow-up with Oncology as previously arranged. #6. Anxiety and depression: We will continue patient home buspirone regimen with hold for sedation especially given difficulty with ambulation. #7. Morbid Obesity: Weight loss and lifestyle changes encouraged. #8. Hyperlipidemia: Continue patient on statin therapy. #9. Gout: We will continue patient home allopurinol regimen. #10. BPH: We will continue patient home finasteride regimen. #11. MINERVA: CPAP q HS. #12. DVT Prophylaxis: SCDs, lovenox. #13. CODE status: Patient HCPOA is his who is present and living will is currently in place. DNR-CCA, no intubation status. Charges/Coding Visit Charges OBSV E&M: 47391 Subsequent observation care L2
[2021-07-31] MEDS: Aspirin 81 MG TAB.CHEW PO (08:12)
[2021-07-31] MEDS: Allopurinol 100 MG Tablet 200 MG PO (08:13)
[2021-07-31] MEDS: amLODIPine 10 MG Tablet PO (10:08)
[2021-07-31] MEDS: Finasteride 5 MG Tablet PO (10:09)
[2021-07-31] MEDS: hydroCHLOROthiazide 25 MG Tablet PO (10:09)
[2021-07-31] MEDS: Lisinopril 40 MG Tablet PO (10:09)
[2021-07-31] MEDS: Celecoxib 200 MG Capsule PO (10:09)
[2021-07-31] MEDS: busPIRone 15 MG TABLET PO ×2 (10:10→21:40)
[2021-07-31] MEDS: Hydrocortisone 2.5% Crm 1 APPLIC TOPICAL (10:10)
[2021-07-31] MEDS: Memantine Hydrochloride 10 MG Tablet PO ×2 (10:10→21:40)
[2021-07-31] MEDS: Enoxaparin 40 MG/0.4 ML Syringe SC ×2 (10:11→21:41)
[2021-07-31] MEDS: MELATONIN 10 MG TABLET 5 MG PO (21:40)
[2021-07-31] MEDS: Donepezil HCl 10 MG Tablet PO (21:40)
[2021-07-31] MEDS: Atorvastatin Calcium 10 MG Tablet PO (21:41)
[2021-08-01] VITALS (10 sets, daily range): BP systolic 114–149; BP diastolic 45–64; PULSE 46–61; RESP 13–23; TEMP 36.4–36.7; O2SAT 94–99
--- NOTE | 2021-08-01 06:24 | PCM.PN.HOSP ---
Subjective Subjective Patient with no events overnight per self and per nursing report. Patient states he feels well. Patient does seem to have improving strength but still makes face decisions with movements and has a lot of trouble with any initiation from a laying or sitting to a standing position. Patient denies fevers, chills, nausea, emesis, abdominal pain, chest pain or dyspnea. Objective Data Objective Data Vital Signs: Vital Signs Temp Pulse Resp BP Pulse Ox 97.6 F L 46 L 13 133/58 H 98 08/01/21 04:03 08/01/21 04:24 08/01/21 04:24 08/01/21 04:03 08/01/21 04:24 Oxygen Delivery Method CPAP Weight: 236 lb 5.369 oz Body Mass Index (BMI) 48.1 Intake & Output: Intake and Output for Last 24 Hours 07/30/21 07/31/21 08/01/21 23:59 23:59 23:59 Intake Total 550 / 550 400 / 400 Output Total 1400 / 1400 525 / 825 300 / 300 Balance -850 / -850 -125 / -425 -300 / -300 Lab / Micro Data Result Diagrams: 07/30/21 06:02 07/30/21 06:02 Physical Exam Narrative Physical Examination: General: Awake, alert, oriented to self and place, underlying severe dementia with marked short term memory impairment does recognize the hospitalist physician today as his physician, seated upright in the bed. Skin: Normal color, normal turgor, no icterus, no cyanosis except occasional staged ecchymoses and mild stasis changes lower extremities. HEENT: AT/NC, EOMI, PERRLA, MMM. Lungs: Diminished, greater bases, appropriate effort, no evidence of respiratory distress, no rales, ronchi or wheezing. Heart: Regular rate with regular rhythm; no gallop, rub audible. Abdomen: Soft, morbidly obese, NTTP, no obvious distention, distant normal BS. Extremities: No cyanosis, no clubbing, mild ankle/pedal edema, not markedly pitting. Neurological: Patient awake, alert, oriented as noted, cognitive function currently baseline intact with severe dementia; pupils equally reactive to light and accommodation, cranial nerves II-XII grossly normal, moving all 4 extremities, no focal deficits, strength improving, moderately to severely globally decreased. Psychiatric: Affect appears calm, no acute evidence of depressive or anxiety feelings. Assessment & Plan Assessment/Plan (1) Weakness: PLAN: The patient is an 81 y/o M w/ PMHx: Prediabetes, Alzheimer's dementia with unclear behavioral disturbance history, Morbid Obesity, HTN, HLD, BPH w/ Hx urinary obstruction, Anxiety and Depression, Hx SVT, Hx Colon CA, Hx monoclonal gammopathy, MINERVA, Chronic peripheral neuropathy following w/ Dr. Kauffman, Chronic imbalance issues evaluated in the past who presents to the [facility] ED on 07/27/21 with history of fatigue, weakness with increased difficulty walking which is chronic however worsening with difficulty with balance more pronounced over the last several weeks and increasingly so this AM with episode of lightheadedness with resolved. #1. Debility, Weakness, Suspect mild vasovagal component and Chronic severe polyneuropathy: EKG in ED w/ sinus rhythm without evidence of acute ischemia, CXR w/ no acute cardiopulmonary findings, initial trop normal, CT head without acute findings. Patient initially admitted to telemetry but patient with no events overnight, no recurrent episodes of dizziness and do suspect this potentially was vasovagal and contributed to by severe polyneuropathy, cardiac enzymes remain unremarkable. PT/OT/CM evaluations ongoing. Awaiting SNF precertification. #2. Hyperglycemia with Pre-Diabetes mellitus type II w/ Prediabetes Hx: Admission blood sugar 191, hemoglobin A1c obtained and noted to be 5.5%, patient had eaten just prior to ED presentation, not on any diabetic regimen. Given HgBA1c appropriate range, continue to ADA diet only and discontinued ISS. #3. Hypertension, Uncontrolled: Patient's BP remained elevated following admission, adjusted regimen with increase to lisinopril, continued hydrochlorothiazide, increased Norvasc with some BP improvement, will continue to monitor and patient will need follow-up BMP at skilled transition given electrolyte potential alterations with new regimen, as needed IV hydralazine. #4. Alzheimer's dementia with unclear behavioral disturbance history: From discussion with spouse suspect no behavioral issues, complicates presentation, contributing to patient's debility, will maintain on fall and aspiration precautions, therapies consulted as noted with likely plan for skilled facility placement and per discussion with spouse eventually the patient may need transition to a memory unit, continue patient home regimen donepezil and memantine regimen. #5. History of Colon CA: s/p remote partial colectomy, in remission, encourage continued outpatient follow-up with Oncology as previously arranged. #6. Anxiety and depression: We will continue patient home buspirone regimen with hold for sedation especially given difficulty with ambulation. #7. Morbid Obesity: Weight loss and lifestyle changes encouraged. #8. Hyperlipidemia: Continue patient on statin therapy. #9. Gout: We will continue patient home allopurinol regimen. #10. BPH: We will continue patient home finasteride regimen. #11. MINERVA: CPAP q HS. #12. DVT Prophylaxis: SCDs, lovenox. #13. CODE status: Patient HCPOA is his who is present and living will is currently in place. DNR-CCA, no intubation status. Charges/Coding Visit Charges Inpatient E&M: 61363 Subs Hosp L2
[2021-08-01] MEDS: Allopurinol 100 MG Tablet 200 MG PO (09:00)
[2021-08-01] MEDS: Aspirin 81 MG TAB.CHEW PO (09:00)
[2021-08-01] MEDS: amLODIPine 10 MG Tablet PO (09:12)
[2021-08-01] MEDS: Celecoxib 200 MG Capsule PO (09:12)
[2021-08-01] MEDS: Enoxaparin 40 MG/0.4 ML Syringe SC ×2 (09:12→20:37)
[2021-08-01] MEDS: Lisinopril 40 MG Tablet PO (09:12)
[2021-08-01] MEDS: Memantine Hydrochloride 10 MG Tablet PO ×2 (09:13→20:37)
[2021-08-01] MEDS: Finasteride 5 MG Tablet PO (09:13)
[2021-08-01] MEDS: busPIRone 15 MG TABLET PO ×2 (09:13→20:36)
[2021-08-01] MEDS: hydroCHLOROthiazide 25 MG Tablet PO (09:14)
[2021-08-01] MEDS: Hydrocortisone 2.5% Crm 1 APPLIC TOPICAL (09:14)
--- NOTE | 2021-08-01 11:58 | TREXTCAR_ITS ---
Diet 07/31/21 19:21 Diet: Cardiac - Heart Healthy/ ADA 1800 diet (prediabetic patient) Food consistency:: Regular Liquid Consistency:: Regular/Thin Is pt able to select menu?: No Routine Orders/Code Status Enema Type: Fleetz Enema Frequency: Daily PRN Suppository Type: Dulcolax 10mg Suppository Frequency: Daily PRN Keep PO Greater than or Equal to (%): 92 Code Status: DNRCC-A (DNR-CCA, no intubation status.) Suggestions for Active Care Change Position every (hours): 2 Hours to sit in a chair: 6 Times a day to sit in chair: 3 Therapies Weight Bearing: Full weight bearing Extremity Affected:: Bilateral Lower Physical Therapy: Eval and Treat Occupational Therapy: Eval and Treat Problem/Diagnosis (1) Weakness: Status: Acute Allergies/Procedures Done in Hospital Allergies ibuprofen Allergy (Mild, Verified 07/27/21 08:34) Rash Procedures: None Type of Care/Length of Stay Estimated LOS: Convalescent Care Less Than 30 days Type of Care Needed: Skilled Rehab Potential: Fair Prognosis: Fair Additional Orders/Day of Discharge Additional Orders: (1) Continue CPAP q HS or with naps, (2) Maintain on fall and aspiration precautions, (3) Encourage continued IS 10x/hr 7a-7p Day of Discharge: 08/02/21 Discharge Plan Admission Admit Date/Time: 07/27/21 11:02 Primary Reason for Your Visit: FTT Adult, Frequent falls, Severe Polyneuropathy, Prediabetes Attending Provider: Elin To Primary Care Provider: Macie Fenton Discharge Orders/Prescriptions Prescriptions: New amlodipine 10 mg Tablet 10 mg PO DAILY Qty: 0 RF: 0 lisinopril 40 mg Tablet 40 mg PO DAILY Qty: 0 RF: 0 Continued [id number]-[id number] oil [Metanx (algal oil)] 3 mg-35 mg-2 mg -90.314 mg capsule 1 cap PO BID RF: 0 melatonin 5 mg capsule 5 mg PO QHS RF: 0 Biofreeze (menthol) 4 % gel 1 applic TOPICAL TID PRN (Reason: arthritis ) RF: 0 donepezil 10 mg tablet 10 mg PO QHS Qty: 90 RF: 1 memantine 10 mg tablet 10 mg PO BID Qty: 180 RF: 1 acetaminophen [Tylenol Extra Strength] 500 mg tablet 500 - 2,000 mg PO DAILY RF: 0 alpha lipoic acid 600 mg capsule 600 mg PO DAILY RF: 0 cholecalciferol (vitamin D3) 125 mcg (5,000 unit) capsule 125 mcg PO DAILY RF: 0 triamcinolone acetonide 0.1 % cream 1 applic topical DAILY RF: 0 allopurinol 100 MG tablet 200 mg PO DAILYCM RF: 0 simvastatin 20 MG tablet 20 mg PO QHS RF: 0 hydrochlorothiazide 25 MG tablet 25 mg PO DAILY RF: 0 finasteride 5 MG tablet 5 mg PO DAILY RF: 0 buspirone 15 MG tablet 1 tablet PO BID RF: 0 aspirin 81 MG tablet,chewable 81 mg PO DAILY@0800 RF: 0 celecoxib 200 MG capsule 200 mg PO DAILY RF: 0 Discontinued lisinopril 30 mg tablet 30 mg PO DAILY RF: 0 Referrals / Follow Up: Macie Fenton MD [Primary Care Provider] - (Follow-up within 1-2 days SNF discharge.) Disposition Disposition (needs filled in before D/C Order can be placed): Custodial Facility
[2021-08-01] MEDS: MELATONIN 10 MG TABLET 5 MG PO (20:36)
[2021-08-01] MEDS: Donepezil HCl 10 MG Tablet PO (20:37)
[2021-08-01] MEDS: Atorvastatin Calcium 10 MG Tablet PO (20:37)
[2021-08-02] VITALS (11 sets, daily range): BP systolic 122–147; BP diastolic 49–68; PULSE 51–62; RESP 17–20; TEMP 36.3–36.8; O2SAT 91–98
[2021-08-02] MEDS: hydroCHLOROthiazide 25 MG Tablet PO (09:05)
[2021-08-02] MEDS: Celecoxib 200 MG Capsule PO (09:05)
[2021-08-02] MEDS: Memantine Hydrochloride 10 MG Tablet PO ×2 (09:05→21:48)
[2021-08-02] MEDS: Allopurinol 100 MG Tablet 200 MG PO (09:05)
[2021-08-02] MEDS: Aspirin 81 MG TAB.CHEW PO (09:06)
[2021-08-02] MEDS: amLODIPine 10 MG Tablet PO (09:06)
[2021-08-02] MEDS: Enoxaparin 40 MG/0.4 ML Syringe SC ×2 (09:06→21:48)
[2021-08-02] MEDS: busPIRone 15 MG TABLET PO ×2 (09:06→21:48)
[2021-08-02] MEDS: Lisinopril 40 MG Tablet PO (09:08)
[2021-08-02] MEDS: Finasteride 5 MG Tablet PO (09:08)
--- NOTE | 2021-08-02 10:43 | CASEMGMT ---
Addendum entered by Nina Nuno 08/02/21 12:27: ROSELINE placed a call to Marlyn at [facility], pre-cert is still pending. Plan: [facility] pending pre-cert Original Note: Social Work Note ROSELINE faxed updated clinicals to [facility]. Plan: [facility] pending pre-cert Nina Nuno TEXTILE MACHINERY INSTRUCTOR, CARBONATION EQUIPMENT OPERATOR
--- NOTE | 2021-08-02 14:37 | PN.HOSP_ITS ---
Subjective Subjective Feels well. Ready to leave. Objective Data Objective Data Vital Signs: Vital Signs Temp Pulse Resp BP Pulse Ox 36.4 C L 62 18 137/67 H 98 08/02/21 09:02 08/02/21 09:02 08/02/21 09:02 08/02/21 09:02 08/02/21 09:02 Oxygen Delivery Method Room Air Weight: 106.3 kg Body Mass Index (BMI) 48.1 Intake & Output: Intake and Output for Last 24 Hours 07/31/21 08/01/21 08/02/21 23:59 23:59 23:59 Intake Total 400 / 400 650 / 650 Output Total 525 / 825 650 / 850 500 / 500 Balance -125 / -425 0 / -200 -500 / -500 Lab / Micro Data Result Diagrams: 07/30/21 06:02 07/30/21 06:02 Physical Exam Const alert and no apparent distress Resp normal respiratory effort, no retractions and no use of accessory muscles Cardio regular rate, regular rhythm, S1 normal heart sound and S2 normal heart sound GI normal to inspection, nondistended, normoactive bowel sounds, soft to palpation, non-tender and non-distended Extremity normal to inspection and full ROM Assessment & Plan Assessment/Plan (1) Weakness: PLAN: The patient is an 81 y/o M w/ PMHx: Prediabetes, Alzheimer's dementia with unclear behavioral disturbance history, Morbid Obesity, HTN, HLD, BPH w/ Hx urinary obstruction, Anxiety and Depression, Hx SVT, Hx Colon CA, Hx monoclonal gammopathy, MINERVA, Chronic peripheral neuropathy following w/ Dr. Kauffman, Chronic imbalance issues evaluated in the past who presents to the [facility] ED on 07/27/21 with history of fatigue, weakness with increased difficulty wal moshe which is chronic however worsening with difficulty with balance more pronounced over the last several weeks and increasingly so this AM with episode of lightheadedness with resolved. 1. Debility, Weakness, plan for WVM pending precertification. 2. Near syncope suspect this potentially was vasovagal and contributed to by severe polyneuropathy, cardiac enzymes remain unremarkable. PT/OT/CM evaluations ongoing. Awaiting SNF precertification. 3. Chronic conditions: complicates care and recovery * Hyperglycemia with Pre-Diabetes mellitus type II w/ Prediabetes Hx: Admission blood sugar 191, hemoglobin A1c obtained and noted to be 5.5%, patient had eaten just prior to ED presentation, not on any diabetic regimen. Given HgBA1c appropriate range, continue to ADA diet only and discontinued ISS. * Hypertension, Uncontrolled: Patient's BP remained elevated following admission, adjusted regimen with increase to lisinopril, continued hydrochlorothiazide, increased Norvasc with some BP improvement, will continue to monitor and patient will need follow-up BMP at skilled transition given william ctrolyte potential alterations with new regimen, as needed IV hydralazine. * Alzheimer's dementia with unclear behavioral disturbance history: From discussion with spouse suspect no behavioral issues, complicates presentation, contributing to patient's debility, will maintain on fall and aspiration p recautions, therapies consulted as noted with likely plan for skilled facility placement and per discussion with spouse eventually the patient may need transition to a memory unit, continue patient home regimen donepezil and memantine regimen. * History of Colon CA: s/p remote partial colectomy, in remission, encourage continued outpatient follow-up with Oncology as previously arranged. * Anxiety and depression: We will continue patient home buspirone regimen with hold for sedation especially given difficulty with ambulation. * Morbid Obesity: Weight loss and lifestyle changes encouraged. * Hyperlipidemia: Continue patient on statin therapy. * Gout: We will continue patient home allopurinol regimen. * BPH: We will continue patient home finasteride regimen. * MINERVA: CPAP q HS. 4. DVT Prophylaxis: SCDs, lovenox. 5. CODE status: Patient HCPOA is his who is present and living will is currently in place. DNR-CCA, no intubation status. Charges/Coding Visit Charges OBSV E&M: 51295 Subsequent observation care L2
--- NOTE | 2021-08-02 15:59 | CASEMGMT ---
Addendum entered by Nina Nuno 08/02/21 16:17: ROSELINE received call from Sarah stating she called [employer] and was told that pt was approved two days ago. ROSELINE informed Sarah that [facility] has not informed this worker yet that pre-cert was obtained. Pt cannot discharge until [facility] gives the approval. Sarah states she was provided a reference number [id number]. ROSELINE informed Sarah that this worker will call [facility] and provide reference number but again informed Sarah that as of earlier today, per [facility], pre-cert was still pending. ROSELINE placed a call to Marlyn at [facility] and updated her that pt's Sarah is stating she called [employer] and pt was approved SNF. Marlyn states it is still showing pending. Marlyn states the reference number that Sarah provided is the same reference number that she got when she submitted the request. Marlyn states she will check on pre-cert. Plan: W pending pre-cert Original Note: Social Work Note ROSELINE placed a call to pt's Sarah and updated her that pre-cert for W is still pending. Sarah states understanding. ROSELINE placed another call to Marlyn at [facility] and left message that this worker is leaving for the day, asked Marlyn to call [facility] if pre-cert is obtained. Plan: W pending pre-cert Nina Nuno MSW, HEAD NURSE
[2021-08-02] MEDS: Atorvastatin Calcium 10 MG Tablet PO (21:48)
[2021-08-02] MEDS: Donepezil HCl 10 MG Tablet PO (21:48)
[2021-08-02] MEDS: 0.9% Saline Lock 10 ML Syringe IV (21:48)
[2021-08-02] MEDS: MELATONIN 10 MG TABLET 5 MG PO (21:49)
[2021-08-03] VITALS (12 sets, daily range): BP systolic 101–151; BP diastolic 44–69; PULSE 50–72; RESP 17–22; TEMP 36.5–37.4; O2SAT 95–100
--- NOTE | 2021-08-03 08:17 | NURSING ---
while up on bSC, pt with arm/legs spams then became unresponsive, eyes rolled back into his head, snorning respirations. Staff assist initiated with subsequent CABINET MOUNTER being initated.
--- NOTE | 2021-08-03 08:18 | NURSING ---
pt at baseline orientation. states he feels sleepy. incontinent of urine/stool so hygiene/km care completed. CPS at bedside to do EKG
[2021-08-03 08:21] LABS: Bedside Glucose 141 mg/dL (74-106)
--- NOTE | 2021-08-03 08:30 | CASEMGMT ---
Social Work Note SW received message from Marlyn at [facility] stating pre-cert has been obtained, pt can discharge to [facility] today. Nina Nuno INFORMATION TECHNOLOGY AUDIT MANAGER, ARMORING MACHINE OPERATOR
--- NOTE | 2021-08-03 09:06 | EKG12_ITS ---
Test Reason : Blood Pressure : / mmHG Vent. Rate : 071 BPM Atrial Rate : 071 BPM P-R Int : 160 ms QRS Dur : 108 ms QT Int : 410 ms P-R-T Axes : -21 -51 099 degrees QTc Int : 445 ms Sinus rhythm with Premature atrial complexes Left anterior fascicular block ST & T wave abnormality, consider lateral ischemia Abnormal ECG When compared with ECG of 27-JUL-2021 11:08, Premature atrial complexes are now Present ST now depressed in Lateral leads Confirmed by SAMI HOYT, JULIENNE ([id number]), scientific publications editor YAAH ARRIAGA ([id number]) on 08/04/2021 1:47:41 PM Referred By: KARSON Confirmed By:JULIENNE GALLARDO MD
--- NOTE | 2021-08-03 09:42 | NURSING ---
noted HR down to 49 on monitor. pt opens eyes to verbal stimuli. denies all S/S. noted HR now 56 on monitor. 02 maintained 99%
[2021-08-03] MEDS: hydroCHLOROthiazide 25 MG Tablet PO (10:06)
[2021-08-03] MEDS: Lisinopril 40 MG Tablet PO (10:06)
[2021-08-03] MEDS: Celecoxib 200 MG Capsule PO (10:06)
[2021-08-03] MEDS: busPIRone 15 MG TABLET PO (10:06)
[2021-08-03] MEDS: Aspirin 81 MG TAB.CHEW PO (10:06)
[2021-08-03] MEDS: Enoxaparin 40 MG/0.4 ML Syringe SC (10:07)
[2021-08-03] MEDS: Memantine Hydrochloride 10 MG Tablet PO (10:07)
[2021-08-03] MEDS: Allopurinol 100 MG Tablet 200 MG PO (10:07)
[2021-08-03] MEDS: amLODIPine 10 MG Tablet PO (10:08)
[2021-08-03] MEDS: Finasteride 5 MG Tablet PO (10:08)
--- NOTE | 2021-08-03 10:15 | PCM.DC.SUM ---
Providers Date of Admission: 07/27/21 Primary Care Physician: Dr. Macie Fenton MD Reason For Visit: FTT, IMBALANCE WITH POLYNEUROPATHY Diagnosis Discharge Diagnosis (1) Weakness: Status: Acute Code(s): R53.1 - Weakness Medications at Discharge Home Medications allopurinol 200 mg PO DAILYCM 03/07/13 buspirone 1 tablet PO BID 03/07/13 finasteride 5 mg PO DAILY 03/07/13 hydrochlorothiazide 25 mg PO DAILY 03/07/13 simvastatin 20 mg PO QHS 03/07/13 aspirin 81 mg PO DAILY@0800 10/19/13 celecoxib 200 mg PO DAILY 06/30/16 levomefolate Ca 3 mg-B6 35 mg-meB12 2 mg-algal oil 90.314 mg capsule 1 cap PO BID 07/28/20 melatonin 5 mg capsule 5 mg PO QHS cap 07/28/20 menthol 4 % topical gel 1 applic TOPICAL TID PRN 07/28/20 acetaminophen 500 mg tablet 500 - 2,000 mg PO DAILY tab 06/17/21 alpha lipoic acid 600 mg capsule 600 mg PO DAILY 06/17/21 cholecalciferol (vitamin D3) 125 mcg (5,000 unit) capsule 125 mcg PO DAILY 06/17/21 donepezil 10 mg tablet 10 mg PO QHS #90 tab 06/17/21 memantine 10 mg tablet 10 mg PO BID #180 tab 06/17/21 triamcinolone acetonide 0.1 % topical cream 1 applic TOPICAL DAILY 06/17/21 amlodipine 10 mg PO DAILY #0 tab 08/01/21 lisinopril 40 mg PO DAILY #0 tab 08/01/21 Hospital Course Operations None Procedures None Summary of Care Provided Minutes Spent on Discharge: 32 Hospital Course: 81-year-old male presents with weakness and near syncope. Patient was evaluated and patient deemed appropriate for shelter facility at [facility]. Precertification has been obtained. Patient did have an episode this morning where rapid response team was called. Patient was on the commode and was noted to be unresponsive. Unclear if patient had a syncopal episode or just simply fell asleep while he was on the commode but came to quickly. EKG was unremarkable. To check orthostatic vital signs that were negative as well. Patient is otherwise doing well and will be discharged to [facility] in stable condition. 1. Debility, Weakness, plan for WVM pending precertification. 2. Near syncope suspect this potentially was vasovagal and contributed to by severe polyneuropathy, cardiac enzymes remain unremarkable. PT/OT/CM evaluations ongoing. Awaiting SNF precertification. 3. Chronic conditions: complicates care and recovery Hyperglycemia with Pre-Diabetes mellitus type II w/ Prediabetes Hx: Admission blood sugar 191, hemoglobin A1c obtained and noted to be 5.5%, patient had eaten just prior to ED presentation, not on any diabetic regimen. Given HgBA1c appropriate range, continue to ADA diet only and discontinued ISS. Hypertension, Uncontrolled: Patient's BP remained elevated following admission, adjusted regimen with increase to lisinopril, continued hydrochlorothiazide, increased Norvasc with some BP improvement, will continue to monitor and patient will need follow-up BMP at skilled transition given electrolyte potential alterations with new regimen, as needed IV hydralazine. Alzheimer's dementia with unclear behavioral disturbance history: From discussion with spouse suspect no behavioral issues, complicates presentation, contributing to patient's debility, will maintain on fall and aspiration precautions, therapies consulted as noted with likely plan for skilled facility placement and per discussion with spouse eventually the patient may need transition to a memory unit, continue patient home regimen donepezil and memantine regimen. History of Colon CA: s/p remote partial colectomy, in remission, encourage continued outpatient follow-up with Oncology as previously arranged. Anxiety and depression: We will continue patient home buspirone regimen with hold for sedation especially given difficulty with ambulation. Morbid Obesity: Weight loss and lifestyle changes encouraged. Hyperlipidemia: Continue patient on statin therapy. Gout: We will continue patient home allopurinol regimen. BPH: We will continue patient home finasteride regimen. MINERVA: CPAP q HS. Physical Exam Const alert, oriented x3 and no apparent distress Neck no lymphadenopathy Resp normal respiratory effort, no retractions, no use of accessory muscles and clear to auscultation bilaterally Cardio regular rate, regular rhythm, S1 normal heart sound and S2 normal heart sound GI normal to inspection, nondistended, normoactive bowel sounds, soft to palpation, non-tender and non-distended Neuro oriented x3 and CN's II-XII intact bilaterally Sensorium / Orientation: awake and alert Psych affect normal Weight / BMI Weight Weight: 106.4 kg Body Mass Index (BMI) 48.1 ABG / Lab / Microbiology Data Result Diagrams: 07/30/21 06:02 07/30/21 06:02 Laboratory: Laboratory Results - last 24 hr 08/03/21 08:04: POC Glucose 141 H Meaningful Use Info Meaningful Use Diagnoses (Choose all that apply): None applicable Discharge Plan Admission Admit Date/Time: 07/27/21 11:02 Primary Reason for Your Visit: FTT Adult, Frequent falls, Severe Polyneuropathy, Prediabetes Attending Provider: John Alvarez Primary Care Provider: Macie Fenton Discharge Orders/Prescriptions Prescriptions: New amlodipine 10 mg Tablet 10 mg PO DAILY Qty: 0 RF: 0 lisinopril 40 mg Tablet 40 mg PO DAILY Qty: 0 RF: 0 Continued [id number]-algal oil [Metanx (algal oil)] 3 mg-35 mg-2 mg -90.314 mg capsule 1 cap PO BID RF: 0 melatonin 5 mg capsule 5 mg PO QHS RF: 0 Biofreeze (menthol) 4 % gel 1 applic TOPICAL TID PRN (Reason: arthritis ) RF: 0 donepezil 10 mg tablet 10 mg PO QHS Qty: 90 RF: 1 memantine 10 mg tablet 10 mg PO BID Qty: 180 RF: 1 acetaminophen [Tylenol Extra Strength] 500 mg tablet 500 - 2,000 mg PO DAILY RF: 0 alpha lipoic acid 600 mg capsule 600 mg PO DAILY RF: 0 cholecalciferol (vitamin D3) 125 mcg (5,000 unit) capsule 125 mcg PO DAILY RF: 0 triamcinolone acetonide 0.1 % cream 1 applic topical DAILY RF: 0 allopurinol 100 MG tablet 200 mg PO DAILYCM RF: 0 simvastatin 20 MG tablet 20 mg PO QHS RF: 0 hydrochlorothiazide 25 MG tablet 25 mg PO DAILY RF: 0 finasteride 5 MG tablet 5 mg PO DAILY RF: 0 buspirone 15 MG tablet 1 tablet PO BID RF: 0 aspirin 81 MG tablet,chewable 81 mg PO DAILY@0800 RF: 0 celecoxib 200 MG capsule 200 mg PO DAILY RF: 0 Discontinued lisinopril 30 mg tablet 30 mg PO DAILY RF: 0 Referrals / Follow Up: Macie Fenton MD [Primary Care Provider] - (Follow-up within 1-2 days SNF discharge.) Disposition Disposition (needs filled in before D/C Order can be placed): Shelter Facility Charges/Coding Visit Charges OBSV E&M: 67442 Observation care discharge
--- NOTE | 2021-08-03 16:30 | CASEMGMT ---
Social Work Note Pt to discharge to [facility] skilled today. ROSELINE completed PAS/RR in [facility]ENS. ROSELINE faxed completed discharge paperwork to [facility] including transfer to extended care facility, signed medication list, any scripts, COVID test/tool, PAS/RR and PAS/RR results. Original in SNF folder and copy on pt's chart. ROSELINE spoke with RN, pt to transport via cot. ROSELINE accessed trip assist and arranged transportation via cot for 6:30pm. Transportation form completed and placed on SNF folder and copy on pt's chart. ROSELINE updated RN. ROSELINE placed a call to Marlyn at [facility] and left message updating her on transportation time. ROSELINE placed a call to pt's Sarah and updated her that pt will discharge to [facility] today at 6:30pm and she will need to take pt's CPAP machine to [facility] so pt can use machine tonight. Sarah states understanding. Plan: [facility] skilled today under PAS/RR level of care with Physician's transporting pt via cot at 6:30pm Nina Nuno FIRE CONTROL SYSTEM INSTALLER, SAFETY ENGINEER
== END 2021-08-03 19:33 | disposition skilled nursing facility (03) ==
LOC: ED 11:11 → MS3 11:40
PROVIDERS: Admitting Provider Family Medicine; Emergency Provider Emergency Medicine; PCP Internal Medicine
DX: R55 Syncope and collapse (principal); F02.80 Dementia in other diseases classified elsewhere, unspecified severity, without behavioral disturbance, psychotic disturbance, mood disturbance, and anxiety; G30.9 Alzheimer's disease, unspecified; E66.01 Morbid (severe) obesity due to excess calories; Z68.42 Body mass index [BMI] 45.0-49.9, adult; R53.1 Weakness; G47.33 Obstructive sleep apnea (adult) (pediatric); F32.A Depression, unspecified; I10 Essential (primary) hypertension; E78.2 Mixed hyperlipidemia; R26.2 Difficulty in walking, not elsewhere classified; R73.03 Prediabetes; M10.9 Gout, unspecified; F41.9 Anxiety disorder, unspecified; N40.1 Benign prostatic hyperplasia with lower urinary tract symptoms; N13.8 Other obstructive and reflux uropathy; G60.9 Hereditary and idiopathic neuropathy, unspecified; Z87.891 Personal history of nicotine dependence; Z79.899 Other long term (current) drug therapy; Z79.82 Long term (current) use of aspirin; R62.7 Adult failure to thrive; R73.9 Hyperglycemia, unspecified
CPT/HCPCS: 36415; 70450; 71045; 80048; 80053; 81001; 82962; 83036; 83735; 84484; 85025; 87426; 93005; 94002; 94003; 94660; 94762; 96361; 96372; 96374; 96376; 97110; 97162; 97166; 97530; 97535; 99218; 99285; J7030; A4216; G0378

== ENCOUNTER → 2021-08-09 | Outpatient (REF) | payer SELFPAY ==
[2021-08-09 08:03] LABS: Hematocrit 38.3 % (40-54); Hemoglobin 13.1 g/dL (13.0-16.5); Mean Corp Hgb Conc 34.2 g/dL (32-36); Mean Corpuscular Hgb 36.7 pg (27.0-32.0); Mean Corpuscular Volume 107.3 fL (80-94); Platelet Count 225 K/mm3 (150-450); RBC Distribution Width CV 12.1 % (11.6-14.6); RBC Distribution Width SD 47.9 fl (35.1-43.9); Red Blood Count 3.57 M/mm3 (4.6-6.2); White Blood Count 8.5 K/mm3 (4.4-11.0)
[2021-08-09 08:24] LABS: Anion Gap 6 (5-15); BUN 45 mg/dL (7-18); BUN/Creat Ratio 35.4 RATIO (10-20); Calcium,Total 8.6 mg/dL (8.5-10.1); Chloride 105 mmol/L (98-107); Creatinine, Serum 1.27 mg/dL (0.70-1.30); EST Glomerular Filtration Rate 58 mL/min (>60); Est Glom Filt Rate - Afr Amer 70 mL/min (>60); Glucose 101 mg/dL (74-106); Potassium 4.1 mmol/L (3.5-5.1); Sodium Level 138 mmol/L (136-145)
== END | disposition home or self-care (01) ==
LOC: OLS.WHLTCC 05:00
PROVIDERS: PCP Internal Medicine; Visit Provider Family Medicine
DX: G90.09 Other idiopathic peripheral autonomic neuropathy (principal); G30.9 Alzheimer's disease, unspecified; F02.80 Dementia in other diseases classified elsewhere, unspecified severity, without behavioral disturbance, psychotic disturbance, mood disturbance, and anxiety; R54 Age-related physical debility
CPT/HCPCS: 36415; 80048; 85027

== ENCOUNTER → 2021-10-06 | Outpatient (REF) | payer MEDICARE, SELFPAY ==
[2021-10-06 11:02] LABS: Absolute Lymphocyte Count 2.16 X10^3/uL (0.83-4.51); Absolute Neutrophil Count 6.3 X10^3/uL (2.0-7.7); Basophil# 0.06 X10^3/uL; Basophil% 0.6 % (0-1); Eosinophil# 0.31 X10^3/uL; Eosinophils% 3.2 % (0-5); Hemoglobin 12.6 g/dL (13.0-16.5); Lymphocyte # 2.16 X10^3/ul (0.83-4.51); Lymphocyte % 22.2 % (19-41); Mean Corp Hgb Conc 33.2 g/dL (32-36); Mean Corpuscular Hgb 35.6 pg (27.0-32.0); Mean Corpuscular Volume 107.3 fL (80-94); Mean Platelet Vol. 10.2 fl (6.2-12.0); Monocyte# 0.85 X10^3/uL; Monocyte% 8.7 % (0-10); NRBC Flagged by Analyzer 0 % (0-5); Neutrophil # 6.25 X10^3/uL (2.7-7.7); Neutrophil % 64.4 % (47-70); Platelet Count 274 K/mm3 (150-450); RBC Distribution Width CV 12.7 % (11.6-14.6); RBC Distribution Width SD 51.2 fl (35.1-43.9); Red Blood Count 3.54 M/mm3 (4.6-6.2); White Blood Count 9.7 K/mm3 (4.4-11.0)
[2021-10-06 11:18] LABS: Anion Gap 10 (5-15); BUN 31 mg/dL (7-18); BUN/Creat Ratio 26.3 RATIO (10-20); Calcium,Total 9.5 mg/dL (8.5-10.1); Chloride 102 mmol/L (98-107); Creatinine, Serum 1.18 mg/dL (0.70-1.30); EST Glomerular Filtration Rate 63 mL/min (>60); Est Glom Filt Rate - Afr Amer 76 mL/min (>60); Glucose 94 mg/dL (74-106); Potassium 3.9 mmol/L (3.5-5.1); Sodium Level 138 mmol/L (136-145)
== END | disposition home or self-care (01) ==
LOC: OLS.WHLTSB 07:55
PROVIDERS: PCP Internal Medicine; Visit Provider Family Medicine
DX: I10 Essential (primary) hypertension (principal); G30.9 Alzheimer's disease, unspecified; F02.80 Dementia in other diseases classified elsewhere, unspecified severity, without behavioral disturbance, psychotic disturbance, mood disturbance, and anxiety; G90.09 Other idiopathic peripheral autonomic neuropathy
CPT/HCPCS: 36415; 80048; 85025

== ENCOUNTER → 2021-12-27 | Outpatient (REF) | payer MEDICARE, SELFPAY | LOC: OLS.WHLTSB 04:00 | PROVIDERS: PCP Internal Medicine; Visit Provider Family Medicine | DX: B30.9 Viral conjunctivitis, unspecified (principal) | CPT/HCPCS: 87070; 87077; 87186; 87205 ==

== ENCOUNTER → 2022-01-21 | Outpatient (REF) | payer MEDICARE, SELFPAY ==
[2022-01-21 08:21] LABS: Hemoglobin 12.1 g/dL (13.0-16.5); Mean Corp Hgb Conc 33.6 g/dL (32-36); Mean Platelet Vol. 10.1 fl (6.2-12.0); Platelet Count 252 K/mm3 (150-450); RBC Distribution Width CV 12.4 % (11.6-14.6); RBC Distribution Width SD 47.4 fl (35.1-43.9); Red Blood Count 3.46 M/mm3 (4.6-6.2); White Blood Count 10.9 K/mm3 (4.4-11.0)
[2022-01-21 08:36] LABS: ALB/GLOB Ratio 0.8 RATIO (0.9-2.4); AST(SGOT) 16 U/L (15-37); Alanine Aminotransfer ALT/SGPT 20 U/L (16-61); Alkaline Phosphatase 107 U/L (45-117); Anion Gap 9 (5-15); BUN 18 mg/dL (7-18); BUN/Creat Ratio 27.9 RATIO (10-20); Calcium,Total 9.1 mg/dL (8.5-10.1); Chloride 104 mmol/L (98-107); Creatinine, Serum 0.65 mg/dL (0.70-1.30); EST Glomerular Filtration Rate 126 mL/min (>60); Est Glom Filt Rate - Afr Amer 152 mL/min (>60); Globulin 3.6 g/dL (2.2-4.2); Glucose 99 mg/dL (74-106); Potassium 3.9 mmol/L (3.5-5.1); Protein, Total 6.6 g/dL (6.4-8.2); Sodium Level 140 mmol/L (136-145)
== END ==
LOC: OLS.WHLCAR 05:00
PROVIDERS: PCP Internal Medicine; Visit Provider Family Medicine
DX: E78.2 Mixed hyperlipidemia (principal); G90.09 Other idiopathic peripheral autonomic neuropathy; R54 Age-related physical debility; G30.9 Alzheimer's disease, unspecified; F02.80 Dementia in other diseases classified elsewhere, unspecified severity, without behavioral disturbance, psychotic disturbance, mood disturbance, and anxiety
CPT/HCPCS: 36415; 80053; 85027

== ENCOUNTER → 2022-03-10 | Outpatient (REF) | payer MEDICARE, SELFPAY ==
[2022-03-10 09:49] LABS: Anion Gap 6 (5-15); BUN 36 mg/dL (7-18); BUN/Creat Ratio 41.9 RATIO (10-20); Calcium,Total 8.8 mg/dL (8.5-10.1); Chloride 107 mmol/L (98-107); Creatinine, Serum 0.86 mg/dL (0.70-1.30); EST Glomerular Filtration Rate 90 mL/min (>60); Est Glom Filt Rate - Afr Amer 109 mL/min (>60); Glucose 103 mg/dL (74-106); Potassium 4.1 mmol/L (3.5-5.1); Sodium Level 140 mmol/L (136-145)
[2022-03-10 09:58] LABS: Absolute Lymphocyte Count 1.61 X10^3/uL (0.83-4.51); Absolute Neutrophil Count 11.7 X10^3/uL (2.0-7.7); Basophil# 0.04 X10^3/uL; Basophil% 0.3 % (0-1); Eosinophil# 0.37 X10^3/uL; Eosinophils% 2.4 % (0-5); Hematocrit 33.8 % (40-54); Hemoglobin 11.3 g/dL (13.0-16.5); Lymphocyte # 1.61 X10^3/ul (0.83-4.51); Lymphocyte % 10.5 % (19-41); Mean Corp Hgb Conc 33.4 g/dL (32-36); Mean Corpuscular Hgb 35.6 pg (27.0-32.0); Mean Corpuscular Volume 106.6 fL (80-94); Mean Platelet Vol. 10.5 fl (6.2-12.0); Monocyte% 9.8 % (0-10); NRBC Flagged by Analyzer 0 % (0-5); Neutrophil # 11.68 X10^3/uL (2.7-7.7); Neutrophil % 76.4 % (47-70); Platelet Count 241 K/mm3 (150-450); RBC Distribution Width CV 12.7 % (11.6-14.6); RBC Distribution Width SD 50.4 fl (35.1-43.9); Red Blood Count 3.17 M/mm3 (4.6-6.2); White Blood Count 15.3 K/mm3 (4.4-11.0)
== END ==
LOC: OLS.WHLCAR 05:00
PROVIDERS: PCP Internal Medicine; Visit Provider Internal Medicine
DX: R19.7 Diarrhea, unspecified (principal); G30.9 Alzheimer's disease, unspecified; F02.80 Dementia in other diseases classified elsewhere, unspecified severity, without behavioral disturbance, psychotic disturbance, mood disturbance, and anxiety; G90.09 Other idiopathic peripheral autonomic neuropathy; R54 Age-related physical debility
CPT/HCPCS: 36415; 80048; 85025

== ENCOUNTER → 2022-03-17 | Outpatient (REF) | payer MEDICARE, SELFPAY ==
[2022-03-17 06:29] LABS: Absolute Lymphocyte Count 1.09 X10^3/uL (0.83-4.51); Absolute Neutrophil Count 9.4 X10^3/uL (2.0-7.7); Basophil# 0.04 X10^3/uL; Basophil% 0.3 % (0-1); Eosinophil# 0.04 X10^3/uL; Eosinophils% 0.3 % (0-5); Hematocrit 33.4 % (40-54); Hemoglobin 11.2 g/dL (13.0-16.5); Lymphocyte # 1.09 X10^3/ul (0.83-4.51); Lymphocyte % 9.2 % (19-41); Mean Corp Hgb Conc 33.5 g/dL (32-36); Mean Corpuscular Hgb 34.9 pg (27.0-32.0); Mean Platelet Vol. 10.6 fl (6.2-12.0); Monocyte# 1.01 X10^3/uL; Monocyte% 8.6 % (0-10); NRBC Flagged by Analyzer 0 % (0-5); Neutrophil # 9.44 X10^3/uL (2.7-7.7); Platelet Count 379 K/mm3 (150-450); RBC Distribution Width CV 12.1 % (11.6-14.6); RBC Distribution Width SD 46.2 fl (35.1-43.9); Red Blood Count 3.21 M/mm3 (4.6-6.2); White Blood Count 11.8 K/mm3 (4.4-11.0)
== END ==
LOC: OLS.WHLCAR 05:50
PROVIDERS: PCP Internal Medicine
DX: G90.09 Other idiopathic peripheral autonomic neuropathy (principal); R54 Age-related physical debility; G30.9 Alzheimer's disease, unspecified; F02.80 Dementia in other diseases classified elsewhere, unspecified severity, without behavioral disturbance, psychotic disturbance, mood disturbance, and anxiety; Z85.038 Personal history of other malignant neoplasm of large intestine
CPT/HCPCS: 36415; 85025

== ENCOUNTER → 2022-03-22 | Outpatient (REF) | payer MEDICARE, SELFPAY ==
[2022-03-22 09:27] LABS: Absolute Lymphocyte Count 2.74 X10^3/uL (0.83-4.51); Absolute Neutrophil Count 7.5 X10^3/uL (2.0-7.7); Basophil# 0.07 X10^3/uL; Basophil% 0.6 % (0-1); Eosinophil# 0.28 X10^3/uL; Eosinophils% 2.3 % (0-5); Hematocrit 33.6 % (40-54); Hemoglobin 10.9 g/dL (13.0-16.5); Lymphocyte # 2.74 X10^3/ul (0.83-4.51); Lymphocyte % 22.5 % (19-41); Mean Corp Hgb Conc 32.4 g/dL (32-36); Mean Corpuscular Hgb 34.5 pg (27.0-32.0); Mean Corpuscular Volume 106.3 fL (80-94); Mean Platelet Vol. 10.1 fl (6.2-12.0); Monocyte# 1.01 X10^3/uL; Monocyte% 8.3 % (0-10); NRBC Flagged by Analyzer 0 % (0-5); Neutrophil % 61.7 % (47-70); Platelet Count 460 K/mm3 (150-450); RBC Distribution Width CV 12.1 % (11.6-14.6); Red Blood Count 3.16 M/mm3 (4.6-6.2); White Blood Count 12.2 K/mm3 (4.4-11.0)
[2022-03-22 09:37] LABS: Anion Gap 7 (5-15); BUN 26 mg/dL (7-18); BUN/Creat Ratio 41.1 RATIO (10-20); Calcium,Total 8.5 mg/dL (8.5-10.1); Chloride 102 mmol/L (98-107); Creatinine, Serum 0.63 mg/dL (0.70-1.30); EST Glomerular Filtration Rate 129 mL/min (>60); Est Glom Filt Rate - Afr Amer 156 mL/min (>60); Glucose 102 mg/dL (74-106); Potassium 4.1 mmol/L (3.5-5.1); Sodium Level 138 mmol/L (136-145)
== END ==
LOC: OLS.WHLCAR 05:00
PROVIDERS: PCP Internal Medicine; Visit Provider Internal Medicine
DX: I10 Essential (primary) hypertension (principal); G90.09 Other idiopathic peripheral autonomic neuropathy; R54 Age-related physical debility; G30.9 Alzheimer's disease, unspecified; F02.80 Dementia in other diseases classified elsewhere, unspecified severity, without behavioral disturbance, psychotic disturbance, mood disturbance, and anxiety
CPT/HCPCS: 36415; 80048; 85025

== ENCOUNTER → 2022-04-07 | Outpatient (REF) | payer MEDICARE, SELFPAY ==
[2022-04-07 09:54] LABS: Hematocrit 34.9 % (40-54); Hemoglobin 11.1 g/dL (13.0-16.5); Mean Corp Hgb Conc 31.8 g/dL (32-36); Mean Corpuscular Hgb 34.3 pg (27.0-32.0); Mean Corpuscular Volume 107.7 fL (80-94); Mean Platelet Vol. 9.9 fl (6.2-12.0); Platelet Count 360 K/mm3 (150-450); RBC Distribution Width CV 12.3 % (11.6-14.6); RBC Distribution Width SD 48.1 fl (35.1-43.9); Red Blood Count 3.24 M/mm3 (4.6-6.2); White Blood Count 9.6 K/mm3 (4.4-11.0)
[2022-04-07 10:10] LABS: ALB/GLOB Ratio 0.7 RATIO (0.9-2.4); AST(SGOT) 20 U/L (15-37); Alanine Aminotransfer ALT/SGPT 20 U/L (16-61); Albumin, Serum 2.7 g/dL (3.2-5.0); Alkaline Phosphatase 102 U/L (45-117); Anion Gap 8 (5-15); BUN 30 mg/dL (7-18); BUN/Creat Ratio 40.5 RATIO (10-20); Calcium,Total 8.8 mg/dL (8.5-10.1); Chloride 104 mmol/L (98-107); Creatinine, Serum 0.74 mg/dL (0.70-1.30); EST Glomerular Filtration Rate 107 mL/min (>60); Est Glom Filt Rate - Afr Amer 130 mL/min (>60); Globulin 3.7 g/dL (2.2-4.2); Glucose 111 mg/dL (74-106); Potassium 4.4 mmol/L (3.5-5.1); Protein, Total 6.4 g/dL (6.4-8.2); Sodium Level 138 mmol/L (136-145)
== END ==
LOC: OLS.WHLCAR 05:00
PROVIDERS: PCP Internal Medicine; Visit Provider Internal Medicine
DX: E78.2 Mixed hyperlipidemia (principal); G90.09 Other idiopathic peripheral autonomic neuropathy; R54 Age-related physical debility; G30.9 Alzheimer's disease, unspecified; F02.80 Dementia in other diseases classified elsewhere, unspecified severity, without behavioral disturbance, psychotic disturbance, mood disturbance, and anxiety
CPT/HCPCS: 36415; 80053; 85027

== ENCOUNTER → 2022-04-13 | Outpatient (REF) | payer MEDICARE, SELFPAY ==
[2022-04-13 08:17] LABS: Absolute Lymphocyte Count 2.39 X10^3/uL (0.83-4.51); Absolute Neutrophil Count 3.7 X10^3/uL (2.0-7.7); Basophil# 0.05 X10^3/uL; Basophil% 0.7 % (0-1); Eosinophil# 0.49 X10^3/uL; Eosinophils% 6.8 % (0-5); Hemoglobin 10.9 g/dL (13.0-16.5); Lymphocyte # 2.39 X10^3/ul (0.83-4.51); Lymphocyte % 33.1 % (19-41); Mean Corp Hgb Conc 32.1 g/dL (32-36); Mean Corpuscular Hgb 34.4 pg (27.0-32.0); Mean Corpuscular Volume 107.3 fL (80-94); Mean Platelet Vol. 9.8 fl (6.2-12.0); Monocyte# 0.56 X10^3/uL; Monocyte% 7.8 % (0-10); NRBC Flagged by Analyzer 0 % (0-5); Neutrophil # 3.65 X10^3/uL (2.7-7.7); Neutrophil % 50.6 % (47-70); Platelet Count 298 K/mm3 (150-450); RBC Distribution Width CV 12.2 % (11.6-14.6); RBC Distribution Width SD 48.9 fl (35.1-43.9); Red Blood Count 3.17 M/mm3 (4.6-6.2); White Blood Count 7.2 K/mm3 (4.4-11.0)
[2022-04-13 08:29] LABS: Anion Gap 5 (5-15); BUN 32 mg/dL (7-18); BUN/Creat Ratio 42.1 RATIO (10-20); Calcium,Total 9.1 mg/dL (8.5-10.1); Chloride 107 mmol/L (98-107); Creatinine, Serum 0.76 mg/dL (0.70-1.30); EST Glomerular Filtration Rate 104 mL/min (>60); Est Glom Filt Rate - Afr Amer 126 mL/min (>60); Glucose 94 mg/dL (74-106); Potassium 4.5 mmol/L (3.5-5.1); Sodium Level 138 mmol/L (136-145)
== END ==
LOC: OLS.WHLCAR 05:00
PROVIDERS: PCP Internal Medicine; Visit Provider Internal Medicine
DX: I10 Essential (primary) hypertension (principal); G90.09 Other idiopathic peripheral autonomic neuropathy; R54 Age-related physical debility; G30.9 Alzheimer's disease, unspecified; F02.80 Dementia in other diseases classified elsewhere, unspecified severity, without behavioral disturbance, psychotic disturbance, mood disturbance, and anxiety
CPT/HCPCS: 36415; 80048; 85025

== ENCOUNTER → 2022-06-20 | Outpatient (REF) | payer MEDICARE, SELFPAY ==
[2022-06-20 09:00] LABS: Absolute Lymphocyte Count 1.17 X10^3/uL (0.83-4.51); Absolute Neutrophil Count 7.9 X10^3/uL (2.0-7.7); Basophil# 0.02 X10^3/uL; Basophil% 0.2 % (0-1); Eosinophil# 0.01 X10^3/uL; Eosinophils% 0.1 % (0-5); Hemoglobin 13.5 g/dL (13.0-16.5); Lymphocyte # 1.17 X10^3/ul (0.83-4.51); Lymphocyte % 11.9 % (19-41); Mean Corp Hgb Conc 33.8 g/dL (32-36); Mean Corpuscular Volume 100.8 fL (80-94); Mean Platelet Vol. 10.4 fl (6.2-12.0); Monocyte# 0.73 X10^3/uL; Monocyte% 7.4 % (0-10); NRBC Flagged by Analyzer 0 % (0-5); Neutrophil # 7.87 X10^3/uL (2.7-7.7); Platelet Count 316 K/mm3 (150-450); RBC Distribution Width CV 11.9 % (11.6-14.6); RBC Distribution Width SD 44.6 fl (35.1-43.9); Red Blood Count 3.97 M/mm3 (4.6-6.2); White Blood Count 9.8 K/mm3 (4.4-11.0)
[2022-06-20 09:11] LABS: ALB/GLOB Ratio 0.7 RATIO (0.9-2.4); AST(SGOT) 16 U/L (15-37); Alanine Aminotransfer ALT/SGPT 24 U/L (16-61); Alkaline Phosphatase 109 U/L (45-117); Anion Gap 9 (5-15); BUN 41 mg/dL (7-18); BUN/Creat Ratio 44.7 RATIO (10-20); Calcium,Total 9.4 mg/dL (8.5-10.1); Chloride 103 mmol/L (98-107); Creatinine, Serum 0.92 mg/dL (0.70-1.30); EST Glomerular Filtration Rate 84 mL/min (>60); Est Glom Filt Rate - Afr Amer 101 mL/min (>60); Globulin 4.3 g/dL (2.2-4.2); Glucose 150 mg/dL (74-106); Potassium 3.9 mmol/L (3.5-5.1); Protein, Total 7.3 g/dL (6.4-8.2); Sodium Level 138 mmol/L (136-145)
== END ==
LOC: OLS.WHLCAR 05:00
PROVIDERS: PCP Internal Medicine; Visit Provider Internal Medicine
DX: M62.81 Muscle weakness (generalized) (principal); G90.09 Other idiopathic peripheral autonomic neuropathy; R54 Age-related physical debility; G30.9 Alzheimer's disease, unspecified; F02.80 Dementia in other diseases classified elsewhere, unspecified severity, without behavioral disturbance, psychotic disturbance, mood disturbance, and anxiety
CPT/HCPCS: 36415; 80053; 85025

== ENCOUNTER → 2022-06-21 | Outpatient (REF) | payer OTHER, SELFPAY ==
[2022-06-21 08:15] LABS: Absolute Lymphocyte Count 1.26 X10^3/uL (0.83-4.51); Absolute Neutrophil Count 7.9 X10^3/uL (2.0-7.7); Basophil# 0.02 X10^3/uL; Basophil% 0.2 % (0-1); Eosinophil# 0.08 X10^3/uL; Eosinophils% 0.8 % (0-5); Hematocrit 35.5 % (40-54); Hemoglobin 11.9 g/dL (13.0-16.5); Lymphocyte # 1.26 X10^3/ul (0.83-4.51); Lymphocyte % 12.3 % (19-41); Mean Corp Hgb Conc 33.5 g/dL (32-36); Mean Corpuscular Hgb 33.9 pg (27.0-32.0); Mean Corpuscular Volume 101.1 fL (80-94); Mean Platelet Vol. 10.3 fl (6.2-12.0); Monocyte# 0.92 X10^3/uL; NRBC Flagged by Analyzer 0 % (0-5); Neutrophil % 77.4 % (47-70); Platelet Count 272 K/mm3 (150-450); RBC Distribution Width CV 12.2 % (11.6-14.6); RBC Distribution Width SD 46.1 fl (35.1-43.9); Red Blood Count 3.51 M/mm3 (4.6-6.2); White Blood Count 10.2 K/mm3 (4.4-11.0)
[2022-06-21 08:47] LABS: ALB/GLOB Ratio 0.8 RATIO (0.9-2.4); AST(SGOT) 11 U/L (15-37); Alanine Aminotransfer ALT/SGPT 19 U/L (16-61); Albumin, Serum 2.7 g/dL (3.2-5.0); Alkaline Phosphatase 90 U/L (45-117); Anion Gap 9 (5-15); BUN 46 mg/dL (7-18); BUN/Creat Ratio 61.7 RATIO (10-20); Calcium,Total 9.1 mg/dL (8.5-10.1); Chloride 103 mmol/L (98-107); Creatinine, Serum 0.75 mg/dL (0.70-1.30); EST Glomerular Filtration Rate 106 mL/min (>60); Est Glom Filt Rate - Afr Amer 129 mL/min (>60); Globulin 3.5 g/dL (2.2-4.2); Glucose 112 mg/dL (74-106); Potassium 3.6 mmol/L (3.5-5.1); Protein, Total 6.2 g/dL (6.4-8.2); Sodium Level 136 mmol/L (136-145)
== END ==
LOC: OLS.WHLCAR 05:00
PROVIDERS: PCP Internal Medicine; Visit Provider Internal Medicine
DX: R53.83 Other fatigue (principal); G90.09 Other idiopathic peripheral autonomic neuropathy; R54 Age-related physical debility; G30.9 Alzheimer's disease, unspecified; F02.80 Dementia in other diseases classified elsewhere, unspecified severity, without behavioral disturbance, psychotic disturbance, mood disturbance, and anxiety
CPT/HCPCS: 36415; 80053; 85025

== ENCOUNTER → 2022-07-06 | Outpatient (REF) | payer MEDICARE, SELFPAY ==
[2022-07-06 10:43] LABS: Absolute Lymphocyte Count 1.54 X10^3/uL (0.83-4.51); Basophil# 0.04 X10^3/uL; Basophil% 0.3 % (0-1); Eosinophil# 0.17 X10^3/uL; Eosinophils% 1.1 % (0-5); Hemoglobin 13.2 g/dL (13.0-16.5); Lymphocyte # 1.54 X10^3/ul (0.83-4.51); Lymphocyte % 10.4 % (19-41); Mean Corp Hgb Conc 31.4 g/dL (32-36); Mean Corpuscular Hgb 34.2 pg (27.0-32.0); Mean Corpuscular Volume 108.8 fL (80-94); Mean Platelet Vol. 9.7 fl (6.2-12.0); Monocyte# 0.98 X10^3/uL; Monocyte% 6.6 % (0-10); NRBC Flagged by Analyzer 0 % (0-5); Neutrophil # 12.01 X10^3/uL (2.7-7.7); Neutrophil % 81.3 % (47-70); Platelet Count 231 K/mm3 (150-450); RBC Distribution Width CV 13.1 % (11.6-14.6); RBC Distribution Width SD 52.5 fl (35.1-43.9); Red Blood Count 3.86 M/mm3 (4.6-6.2); White Blood Count 14.8 K/mm3 (4.4-11.0)
[2022-07-06 10:51] LABS: ALB/GLOB Ratio 0.7 RATIO (0.9-2.4); AST(SGOT) 23 U/L (15-37); Alanine Aminotransfer ALT/SGPT 15 U/L (16-61); Albumin, Serum 2.7 g/dL (3.2-5.0); Alkaline Phosphatase 108 U/L (45-117); Anion Gap 9 (5-15); BUN 60 mg/dL (7-18); BUN/Creat Ratio 60.5 RATIO (10-20); Calcium,Total 8.9 mg/dL (8.5-10.1); Chloride 108 mmol/L (98-107); Creatinine, Serum 0.99 mg/dL (0.70-1.30); EST Glomerular Filtration Rate 77 mL/min (>60); Est Glom Filt Rate - Afr Amer 93 mL/min (>60); Globulin 3.7 g/dL (2.2-4.2); Glucose 81 mg/dL (74-106); Potassium 4.4 mmol/L (3.5-5.1); Protein, Total 6.4 g/dL (6.4-8.2); Sodium Level 137 mmol/L (136-145)
== END ==
LOC: OLS.WHLCAR 05:00
PROVIDERS: PCP Internal Medicine; Visit Provider Internal Medicine
DX: E78.2 Mixed hyperlipidemia (principal); G90.09 Other idiopathic peripheral autonomic neuropathy; R54 Age-related physical debility; G30.9 Alzheimer's disease, unspecified; F02.80 Dementia in other diseases classified elsewhere, unspecified severity, without behavioral disturbance, psychotic disturbance, mood disturbance, and anxiety
CPT/HCPCS: 36415; 80053; 85025